=== PATIENT | female | born 1940 | race Caucasian/White ===

== ENCOUNTER 2023-03-05 10:03 | Observation (INO) | payer MEDICARE, OTHER, SELFPAY ==
[2023-03-05] VITALS (7 sets, daily range): BP systolic 121–178; BP diastolic 61–85; PULSE 65–93; RESP 14–19; TEMP 36–36.7; O2SAT 95–99; BMI 23.7; BMI 22.9
--- NOTE | ~2023-03-05 | XR_ITS ---
EXAMINATION: XR CHEST CLINICAL INFORMATION: Syncope. COMPARISON: None available. TECHNIQUE: AP view of the chest was obtained. FINDINGS: Normal heart size. Mild platelike opacities in the left lower lobe. No pleural effusion or pneumothorax. No acute osseous findings. No displaced osseous fractures. XR/XR chest 1V IMPRESSION: Mild platelike opacities in the left lower lobe are in favor to be related with subsegmental atelectasis, less likely aspiration or developing infiltrates.
--- NOTE | ~2023-03-05 | CT_ITS ---
EXAMINATION: CT HEAD WITHOUT CONTRAST CLINICAL INFORMATION: Syncope. COMPARISON: None. TECHNIQUE: Contiguous axial imaging was performed from the skull base to vertex without intravenous administration of contrast. This CT examination was performed using dose optimization techniques as appropriate, variously including the following: *Automated exposure control *Adjustment of mA and/or kV according to patient size (this includes techniques or standardized protocols for targeted exams where dose is matched to indication/reason for exam; i.e. extremities or head) *Use of iterative reconstruction technique DLP: 61 mGy-cm. FINDINGS: There is no intracranial hemorrhage, large infarction, or mass lesion. There is no extra-axial collection. The ventricles are normal in size and configuration without evidence of hydrocephalus. 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 There is mild degree of brain parenchymal volume loss. The visualized paranasal sinuses and mastoid air cells are clear. CT/CT head/brain wo IV con IMPRESSION: No acute intracranial abnormality.
--- NOTE | 2023-03-05 10:21 | ECG_ITS ---
Test Reason : SYNCOPE Blood Pressure : / mmHG Vent. Rate : 073 BPM Atrial Rate : 073 BPM P-R Int : 154 ms QRS Dur : 080 ms QT Int : 416 ms P-R-T Axes : 072 065 063 degrees QTc Int : 458 ms Normal sinus rhythm Normal ECG No previous ECGs available Referred By: Generic ED Physician Electronically Signed By:JANET ANTHONY
[2023-03-05 10:51] LABS: MANUAL DIFF FLAG NO
[2023-03-05 10:54] LABS: Basophils Absolute Auto 0.1 X10*3/uL (0.0-0.2); Eosinophils Absolute Auto 0.1 X10*3/uL (0.0-0.4); Hematocrit 40.8 % (37.0-47.0); Hemoglobin 13.5 g/dl (12.0-16.0); Imm Gran Abs Auto 0.03 X10*3/uL (0.00-0.03); Imm Gran Pct Auto 0.3 % (0.0-0.4); Lymphocytes Absolute Auto 1.7 X10*3/uL (1.2-4.9); Lymphocytes Percent Auto 16.2 % (20-40); Mean Corpuscular HGB Conc 33.1 g/dl (31.0-35.0); Mean Corpuscular Hemoglobin 31.7 pg (27.0-33.0); Mean Corpuscular Volume 95.8 fL (80.0-98.0); Mean Platelet Volume 8.6 fL (9.4-12.3); Monocytes Absolute Auto 0.9 X10*3/uL (0.1-1.2); Neutrophils Absolute Auto 7.4 x10*3/uL (2.0-8.3); Neutrophils Percent Auto 72.5 % (45-73); Platelet Count 398 X10*3/uL (160-400); Red Blood Count 4.26 X10*6/uL (4.20-5.50); Red Cell Distribution Width 12.4 % (11.0-16.0); White Blood Count 10.2 X10*3/uL (4.8-10.8)
--- NOTE | 2023-03-05 11:09 | ED.SYNCOPE ---
HPI - Syncope General Chief Complaint: Syncope Stated Complaint: SYNCOPE,LOWERED TO FLOOR Time Seen by Provider: 03/05/23 10:58 Source: patient and EMS Mode of arrival: EMS Limitations: no limitations History of Present Illness HPI narrative: 82-year-old female brought in by ambulance for evaluation of syncopal episode, patient had an exercise class this morning, patient suddenly collapsed and passed out for few seconds, patient do not recall any events during passing out, no headache, no CP, no SOB in patient is back to her normal baseline. Has been eating and drinking normally with no nausea, vomiting, or diarrhea. Related Data Allergies Allergy/AdvReac Type Severity Reaction Status Date / Time No Known Allergies Allergy Verified 03/05/23 11:07 Review of Systems Review of Systems: All other systems are reviewed and are negative Constitutional: Reports as per HPI and Reports no additional constitutional complaints Eyes: Reports as per HPI and Reports no additional eye complaints Reports system reviewed and no additional complaints, except as documented Cardiovascular: Reports as per HPI and Reports no additional cardiovascular complaints Respiratory: Reports as per HPI and Reports no additional respiratory complaints Gastrointestinal: Reports as per HPI and Reports no additional gastrointestinal complaints Genitourinary: Reports no additional female genitourinary complaints Musculoskeletal: Reports no additional musculoskeletal complaints Skin/Breast: Reports system reviewed and no additional complaints, except as docu Psychiatric: Reports no additional psychiatric complaints Endocrine: Reports no additional endocrine complaints Hematologic/Lymphatic: Reports no additional hematologic/lymphatic complaints Allergic/Immunologic: Reports no additional allergic/immunologic complaints Reports system reviewed and no additional complaints, except as documented and Reports Abnormal speech present FOR[facility]LY [facility], [facility] Social History Social History Advance Directives: No Advance Directives Information Provided: Yes Physical Exam Vital Signs: Vital Signs: Last Vital Signs Temp 98.0 F 03/05/23 10:26 Pulse 75 03/05/23 11:16 Resp 19 03/05/23 10:26 BP 137/78 03/05/23 11:16 Pulse Ox 98 03/05/23 10:26 O2 Del Method Room Air 03/05/23 10:26 BMI result Body Mass Index 23.7 Vital signs have been reviewed and appear to be correct. Blood pressure elevated. Heart rate normal. Respiratory rate normal. Temperature normal. Oxygen saturation normal. Appearance: Alert. Oriented X3. No acute distress. Head: Normal external exam. Normocephalic. Atraumatic. No Zendejas signs noted. No raccoon eyes noted Eyes: PERRLA. EOMI. Conjunctiva and sclera normal. Eyelids normal. ENT: TM's Normal. Pharynx normal. Uvula midline. Moist mucous membranes. No trismus noted. No drooling noted. No muffled voice noted. Neck: Normal inspection. Neck supple. FROM. No adenopathy. Thyroid Normal. No meningeal signs. No neck mass noted. CVS: Normal heart rate and rhythm. Heart sound normal. No murmurs noted. Pulses normal throughout. Respiratory: No respiratory distress. Painless inspiration. Breath sounds normal. No wheezes/rales/rhonchi noted. Chest nontender. No accessory muscle usage noted or decreased air movement noted. Abdomen: Soft and nontender. Bowel sounds normal in all 4 quadrants. No distention noted. No organomegaly noted. No visible injury noted. Back: No CVA tenderness. Full range of motion noted. Skin: Skin warm and dry. Normal skin color. Normal skin turgor. No rashes/lesions/lacerations noted. Extremities: No lower extremity edema. Extremities exhibit normal range of motion. Extremities nontender. Neuro: Oriented X 3. Cranial nerve exam: II-XII are grossly intact No motor deficit. No sensory deficit. Reflexes normal. Course Course Course Narrative: 82-year-old female presented after having a syncopal episode, unremarkable cardiac workup. UTI with no sepsis start the patient on oral cefuroxime. Medical Decision Making Differential Diagnosis Differential Diagnoses: The differential diagnosis associated with the presentation includes ( Vasovagal syncope, cardiac syncopal episode, ACS, severe anemia, electrolyte abnormality, UTI.) Admission/Observation Consideration of admission/observation: Escalation of care including admission/observation considered Consult Healthcare Provider Management of the patient was discussed with: Hospitalist ( Dr. Khan) Lab Data MDM Lab Attestation statement: I reviewed the patient's lab results. 03/05/23 10:45 03/05/23 11:09 Labs: Lab Results 03/05/23 03/05/23 03/05/23 Range/Units 10:45 11:09 11:12 WBC 10.2 (4.8-10.8) X10*3/uL RBC 4.26 (4.20-5.50) X10*6/uL Hgb 13.5 (12.0-16.0) g/dl Hct 40.8 (37.0-47.0) % MCV 95.8 (80.0-98.0) fL MCH 31.7 (27.0-33.0) pg MCHC 33.1 (31.0-35.0) g/dl RDW 12.4 (11.0-16.0) % Plt Count 398 (160-400) X10*3/uL MPV 8.6 L (9.4-12.3) fL Immature Gran % (Auto) 0.3 (0.0-0.4) % Neut % (Auto) 72.5 (45-73) % Lymph % (Auto) 16.2 L (20-40) % [place] % (Auto) 9.0 (2-11) % Eos % (Auto) 1.0 (0-4) % Baso % (Auto) 1.0 (0-2) % Lymph # (Auto) 1.7 (1.2-4.9) X10*3/uL [place] # (Auto) 0.9 (0.1-1.2) X10*3/uL Eos # (Auto) 0.1 (0.0-0.4) X10*3/uL Baso # (Auto) 0.1 (0.0-0.2) X10*3/uL Abs Immat Gran (auto) 0.03 (0.00-0.03) X10*3/uL Absolute Neuts (auto) 7.4 (2.0-8.3) x10*3/uL Absolute Nucleated RBC 0.000 (0.0-0.012) X10*3/uL Nucleated RBC % (auto) 0.0 (0.0-0.2) /100WBC Sodium 133 L (135-145) mmol/L Potassium 4.4 (3.3-5.1) mmol/L Chloride 99 (96-108) mmol/L Carbon Dioxide 25 (22-29) mmol/L Anion Gap 13 (12-20) BUN 11 (9-16) mg/dL Creatinine 0.83 (0.5-1.4) mg/dL Estim Creat Clear Calc 43.5 Estimated GFR > 60 POC Glucose 122 H (60-115) mg/dL Random Glucose 114 (60-115) mg/dL Calcium 9.8 (8.4-10.2) mg/dL Total Bilirubin 0.6 (0.0-1.0) mg/dL AST 22 (5-31) U/L ALT 16 (0-31) U/L Alkaline Phosphatase 64 (39-117) U/L Troponin I High Sens < 2.7 (<3.5-17.0) ng/L Total Protein 7.6 (6.5-8.0) g/dL Albumin 3.9 (3.5-5.0) g/dL Urine Color Urine Appearance Urine pH (5.0-9.0) Ur Specific [place] (1.005-1.025) Urine Protein (Neg-Trace) mg/dL Urine Glucose (UA) (Negative) mg/dL Urine Ketones (Negative) mg/dL Urine Blood (Negative) Urine Nitrite (Negative) Ur Leukocyte Esterase (Negative) Urine RBC (0-2) /HPF Urine WBC (0-5) /HPF Ur Squamous Epith Cells (0-2) /HPF Urine Bacteria (None Seen) Hyaline Casts (0-2) /LPF Influenza Type A (PCR) NEGATIVE (Negative) Influenza Type B (PCR) NEGATIVE (Negative) RSV RNA Qual (PCR) NEGATIVE (Negative) SARS-CoV-2 RNA (RT-PCR) NEGATIVE (Negative) 03/05/23 Range/Units 11:52 WBC (4.8-10.8) X10*3/uL RBC (4.20-5.50) X10*6/uL Hgb (12.0-16.0) g/dl Hct (37.0-47.0) % MCV (80.0-98.0) fL MCH (27.0-33.0) pg MCHC (31.0-35.0) g/dl RDW (11.0-16.0) % Plt Count (160-400) X10*3/uL MPV (9.4-12.3) fL Immature Gran % (Auto) (0.0-0.4) % Neut % (Auto) (45-73) % Lymph % (Auto) (20-40) % [place]od % (Auto) (2-11) % Eos % (Auto) (0-4) % Baso % (Auto) (0-2) % Lymph # (Auto) (1.2-4.9) X10*3/uL [place]cleod # (Auto) (0.1-1.2) X10*3/uL Eos # (Auto) (0.0-0.4) X10*3/uL Baso # (Auto) (0.0-0.2) X10*3/uL Abs Immat Gran (auto) (0.00-0.03) X10*3/uL Absolute Neuts (auto) (2.0-8.3) x10*3/uL Absolute Nucleated RBC (0.0-0.012) X10*3/uL Nucleated RBC % (auto) (0.0-0.2) /100WBC Sodium (135-145) mmol/L Potassium (3.3-5.1) mmol/L Chloride (96-108) mmol/L Carbon Dioxide (22-29) mmol/L Anion Gap (12-20) BUN (9-16) mg/dL Creatinine (0.5-1.4) mg/dL Estim Creat Clear Calc Estimated GFR POC Glucose (60-115) mg/dL Random Glucose (60-115) mg/dL Calcium (8.4-10.2) mg/dL Total Bilirubin (0.0-1.0) mg/dL AST (5-31) U/L ALT (0-31) U/L Alkaline Phosphatase (39-117) U/L Troponin I High Sens (<3.5-17.0) ng/L Total Protein (6.5-8.0) g/dL Albumin (3.5-5.0) g/dL Urine Color Yellow Urine Appearance Clear Urine pH 6.5 (5.0-9.0) Ur Specific [place] 1.020 (1.005-1.025) Urine Protein Trace (Neg-Trace) mg/dL Urine Glucose (UA) Negative (Negative) mg/dL Urine Ketones Trace (Negative) mg/dL Urine Blood Negative (Negative) Urine Nitrite Negative (Negative) Ur Leukocyte Esterase Moderate (2+) H (Negative) Urine RBC 3-5 H (0-2) /HPF Urine WBC 21-50 H (0-5) /HPF Ur Squamous Epith Cells 6-10 (0-2) /HPF Urine Bacteria 1+ (None Seen) Hyaline Casts 6-10 (0-2) /LPF Influenza Type A (PCR) (Negative) Influenza Type B (PCR) (Negative) RSV RNA Qual (PCR) (Negative) SARS-CoV-2 RNA (RT-PCR) (Negative) Independent Interpretation I performed an independent interpretation of an: EKG ( Normal sinus rhythm at 73 beats per minutes, normal axis deviation, normal intervals, no ST-T changes.), Plain X-Ray ( chest:Mild platelike opacities in the left lower lobe are in favor to be related with subsegmental atelectasis, less likely aspiration or developing infiltrates. ) and CT Scan ( Head: No acute intra cranial pathology.) Radiology Impression Discussion of test interpretation with radiology: I have reviewed the radiologist's reading. Discharge Plan Discharge Clinical Impression: Syncope and collapse, Acute UTI Patient Disposition: Admitted As Inpatient
[2023-03-05 11:21] LABS: Glucose, Whole Blood 122 mg/dL (60-115)
[2023-03-05 11:23] LABS: Troponin-I High Sensitivity < 2.7 ng/L (<3.5-17.0)
[2023-03-05 11:34] LABS: Alanine Aminotransferase 16 U/L (0-31); Albumin Level 3.9 g/dL (3.5-5.0); Alkaline Phosphatase 64 U/L (39-117); Anion Gap 13 (12-20); Aspartate Amino Transferase 22 U/L (5-31); Bilirubin Total 0.6 mg/dL (0.0-1.0); Blood Urea Nitrogen 11 mg/dL (9-16); Calcium 9.8 mg/dL (8.4-10.2); Carbon Dioxide 25 mmol/L (22-29); Chloride 99 mmol/L (96-108); Creatinine Clr Calc Pharmacy 43.5; Estimated Glomerular Filt Rate > 60; Glucose Random 114 mg/dL (60-115); Potassium 4.4 mmol/L (3.3-5.1); Sodium 133 mmol/L (135-145); Total Protein 7.6 g/dL (6.5-8.0)
[2023-03-05 11:35] LABS: Influenza A PCR NEGATIVE (Negative); Influenza B PCR NEGATIVE (Negative); Resp Syncy Virus RNA Qual PCR NEGATIVE (Negative); SARS COV2 PCR INHOUSE NEGATIVE (Negative)
[2023-03-05 12:05] LABS: Appearance Urine Clear; Color Urine Yellow; Glucose Urine UA Negative (Negative); Leukocyte Esterase Urine Moderate (2+) (Negative); Nitrite Urine Negative (Negative); PH 6.5 (5.0-9.0); UMIC TRIGGER UACC YES; Urine Blood Negative (Negative); Urine Ketones Trace mg/dL (Negative); Urine Protein Trace mg/dL (Neg-Trace)
[2023-03-05 12:16] LABS: Bacteria Urine 1+ (None Seen); UACC Culture Trigger YES; WBC Urine 21-50 /HPF (0-5)
--- NOTE | 2023-03-05 13:28 | PHA.MEDREC ---
Pharmacy Consult ? Medication Reconciliation Pharmacy has completed the medication reconciliation. Patient reported that she takes no prescription medications. Reports she takes a tablets for runny nose but unsure which and tylenol every once in a while. Shital Roland, PharmD
--- NOTE | 2023-03-05 13:35 | P.HPHOSP_ITS ---
History of Present Illness Date of Service: 03/05/23 Attending physician on admission: Arik Thorne Chief Complaint: syncope 82-year-old female without any significant medical history who resides at [facility] presents to the ED earlier today for evaluation of a syncopal episode. She was participating in cardio exercise which she does on a daily basis when she had a syncopal episode. She denies any prodrome leading up to the event including blurred vision, tunnel vision, lightheadedness, palpitations, shortness of breath, or chest pain. She was able to lower herself to the floor but then lost consciousness for about 1 minute per bystanders. On arrival, vital stable. Orthostatic vital signs negative. Hematology studies unremarkable. Renal function normal, electrolytes normal except for a mild hyponatremia of 133. Troponin below detectable limits. Urinalysis with 2+ leukocytes, negative nitrites, negative blood, positive urinary sediment, 1+ bacteria. Denies any fevers, chills, upper respiratory symptoms, abdominal pain, nausea, vomiting, urinary symptoms, diarrhea. Negative for influenza, RSV, COVID-19. Head CT negative for any acute intracranial abnormality. Chest x-ray without any cardiopulmonary abnormality. EKG shows normal sinus rhythm, rate 73, no ST/T-wave abnormality. She drinks 2-3 beers nightly and denies any history of withdrawal or withdrawal seizure. She does smoke about 3 cigarettes weekly and denies any illicit drug use Review of Systems 2 Review of Systems: General: No fevers, malaise, unintentional weight loss HEENT: No blurred vision, diplopia. No sore throat, nasal congestion, rhinorrhea, sinus pain, ear pain Cardiovascular: No chest pain, palpitations, or leg edema Respiratory: No shortness of breath, wheezing, cough GI: No abdominal pain, nausea, vomiting, diarrhea, constipation, melena, hematochezia : No dysuria, hematuria, increased urinary frequency, decreased urinary output MSK: No myalgia, back pain Neuro: No headaches, weakness, paresthesias. +syncope Skin: No rashes or lesions PMFSH Medical History Alcohol abuse Social History Household Members: Other Household Members Other:: assisted living. Housing: Assisted Living Facility Do you presently have visiting nurse or other home services: No Patient Tobacco Use Status: Current someday Tobacco user Tobacco use type: Cigarette Cigarettes Per Day: 1 Use of substances other than those prescribed or required for medical reasons: No Currently Displaying Signs/Symptoms of Drug Intoxication Withdrawal: No Have you been hit, kicked, punched, or otherwise hurt by someone within the past year? If so, by whom?: No Do you feel safe in your current relationship?: No Current Relationship Advance Directives: No Advance Directives Information Provided: Yes Do you have thoughts of harming others: None Do you have a plan to hurt others: No Plan Recently lost weight without trying: No Patient : No : No Poor oral hygiene: No service: No Meds Allergies Allergy/AdvReac Type Severity Reaction Status Date / Time Influenza Virus Vaccines Allergy Unknown Verified 03/05/23 16:38 Active Medications: Current Medications Acetaminophen (Acetaminophen 325 Mg Tablet) 650 mg PO Q6H PRN PRN Reason: Pain, Mild (Pain Scale 1-3) Docusate Sodium (Docusate Sodium 100 Mg Capsule) 100 mg PO DAILY PRN PRN Reason: Constipation Ondansetron HCl (Ondansetron Hcl 4 Mg/2 Ml Vial) 4 mg IVPUSH Q8H PRN PRN Reason: Nausea and Vomiting Sodium Chloride (0.9 % Sodium Chloride Flush 3 Ml Syringe) 3 ml IVFLUSH [facility] Home Medications Medication Instructions Recorded Confirmed Last Taken Type acetaminophen 500 mg tablet 500 mg PO Q6H PRN Pain 03/05/23 03/05/23 Unknown History Physical Exam 2 Vital Signs and Narrative: Vital Signs: Last Vital Signs Temp 98.0 F 03/05/23 10:26 Pulse 75 03/05/23 11:16 Resp 19 03/05/23 10:26 BP 137/78 03/05/23 11:16 Pulse Ox 98 03/05/23 10:26 O2 Del Method Room Air 03/05/23 10:26 BMI result Body Mass Index 23.7 Results Labs 03/06/23 05:37 03/06/23 05:37 Labs: Laboratory Results - last 24 hr 03/05/23 03/05/23 03/05/23 10:45 11:09 11:12 MCV 95.8 MCH 31.7 MCHC 33.1 RDW 12.4 Plt Count 398 MPV 8.6 L Immature Gran % (Auto) 0.3 Neut % (Auto) 72.5 Lymph % (Auto) 16.2 L [place] % (Auto) 9.0 Eos % (Auto) 1.0 Baso % (Auto) 1.0 Lymph # (Auto) 1.7 [place] # (Auto) 0.9 Eos # (Auto) 0.1 Baso # (Auto) 0.1 Abs Immat Gran (auto) 0.03 Absolute Neuts (auto) 7.4 Absolute Nucleated RBC 0.000 Nucleated RBC % (auto) 0.0 Anion Gap 13 Estim Creat Clear Calc 43.5 Estimated GFR > 60 POC Glucose 122 H Random Glucose 114 Calcium 9.8 Total Bilirubin 0.6 AST 22 ALT 16 Alkaline Phosphatase 64 Total Protein 7.6 Albumin 3.9 Urine Color Urine Appearance Urine pH Ur Specific [place] Urine Protein Urine Glucose (UA) Urine Ketones Urine Blood Urine Nitrite Ur Leukocyte Esterase Urine RBC Urine WBC Ur Squamous Epith Cells Urine Bacteria Hyaline Casts Influenza Type A (PCR) NEGATIVE Influenza Type B (PCR) NEGATIVE RSV RNA Qual (PCR) NEGATIVE SARS-CoV-2 RNA (RT-PCR) NEGATIVE 03/05/23 11:52 MCV MCH MCHC RDW Plt Count MPV Immature Gran % (Auto) Neut % (Auto) Lymph % (Auto) [place] % (Auto) Eos % (Auto) Baso % (Auto) Lymph # (Auto) [place] # (Auto) Eos # (Auto) Baso # (Auto) Abs Immat Gran (auto) Absolute Neuts (auto) Absolute Nucleated RBC Nucleated RBC % (auto) Anion Gap Estim Creat Clear Calc Estimated GFR POC Glucose Random Glucose Calcium Total Bilirubin AST ALT Alkaline Phosphatase Total Protein Albumin Urine Color Yellow Urine Appearance Clear Urine pH 6.5 Ur Specific [place] 1.020 Urine Protein Trace Urine Glucose (UA) Negative Urine Ketones Trace Urine Blood Negative Urine Nitrite Negative Ur Leukocyte Esterase Moderate (2+) H Urine RBC 3-5 H Urine WBC 21-50 H Ur Squamous Epith Cells 6-10 Urine Bacteria 1+ Hyaline Casts 6-10 Influenza Type A (PCR) Influenza Type B (PCR) RSV RNA Qual (PCR) SARS-CoV-2 RNA (RT-PCR) Imaging Radiologist's Impressions: Impressions Chest X-Ray 03/05/23 11:28 IMPRESSION: Mild platelike opacities in the left lower lobe are in favor to be related with subsegmental atelectasis, less likely aspiration or developing infiltrates. Head CT 03/05/23 12:10 IMPRESSION: No acute intracranial abnormality. Assessment and Plan (1) Acute UTI: Status: Acute (2) Syncope and collapse: Status: Acute Plan 82-year-old female without any significant medical history who resides at [facility] to be observed for syncopal episode. # syncopal episode -likely vasovagal in the setting of cardiovascular exercise -orthostatics negative -head CT without any acute intracranial abnormality -less likely related to infection. UA possibly with UTI the patient asymptomatic. Will treat as below -low suspicion for seizure activity, no tongue bite or postictal state -continue telemetry # acute UTI -UA with 2+ leukocytes, negative nitrites, negative blood, positive urinary sediment, 1+ bacteria -IV ceftriaxone x5 days (initiated 03/05) -follow cultures -no leukocytosis or SIRS criteria. Sepsis # alcohol abuse -drinks 2-3 beers on a nightly basis -unlikely to be contributory to above -will monitor on CIWA for now DVT prophylaxis-Lovenox Full code Time Spent With Patient Time: Total time managing care of this patient today ____ minutes. Quality Stroke Does the patient have a stroke diagnosis?: No VTE Prior VTE?: No VTE Risk Level:: Medical - moderate - high VTE Device Contraindication: Treatment Not Indicated VTE Drug Contraindication: N/A - Med Ordered
[2023-03-05] MEDS: cefTRIAXone sodium 1 GM in 0.9 % Sodium Chloride 50 ML IV (14:19)
[2023-03-05] MEDS: 0.9 % Sodium Chloride Flush 3 ML SYRINGE IVFLUSH ×2 (17:38→23:53)
[2023-03-05] MEDS: Acetaminophen 325 MG TABLET 650 MG PO (20:39)
[2023-03-06 04:00] VITALS: BP 165/76; PULSE 63; RESP 18; O2SAT 97
[2023-03-06 07:01] LABS: MANUAL DIFF FLAG NO
[2023-03-06 07:10] LABS: Basophils Absolute Auto 0.1 X10*3/uL (0.0-0.2); Basophils Percent Auto 0.9 % (0-2); Eosinophils Absolute Auto 0.2 X10*3/uL (0.0-0.4); Eosinophils Percent Auto 1.9 % (0-4); Hematocrit 38.9 % (37.0-47.0); Hemoglobin 13.5 g/dl (12.0-16.0); Imm Gran Abs Auto 0.03 X10*3/uL (0.00-0.03); Imm Gran Pct Auto 0.3 % (0.0-0.4); Lymphocytes Absolute Auto 2.4 X10*3/uL (1.2-4.9); Lymphocytes Percent Auto 28.3 % (20-40); Mean Corpuscular HGB Conc 34.7 g/dl (31.0-35.0); Mean Corpuscular Volume 95.1 fL (80.0-98.0); Mean Platelet Volume 8.9 fL (9.4-12.3); Monocytes Percent Auto 11.9 % (2-11); Neutrophils Absolute Auto 4.9 x10*3/uL (2.0-8.3); Neutrophils Percent Auto 56.7 % (45-73); Platelet Count 384 X10*3/uL (160-400); Red Blood Count 4.09 X10*6/uL (4.20-5.50); Red Cell Distribution Width 12.1 % (11.0-16.0); White Blood Count 8.6 X10*3/uL (4.8-10.8)
[2023-03-06 07:30] VITALS: BP 177/87; PULSE 77; RESP 18; TEMP 36.9; O2SAT 97
[2023-03-06 07:42] LABS: Anion Gap 14 (12-20); Blood Urea Nitrogen 10 mg/dL (9-16); Calcium 9.4 mg/dL (8.4-10.2); Carbon Dioxide 22 mmol/L (22-29); Chloride 100 mmol/L (96-108); Creatinine Clr Calc Pharmacy 50.2; Estimated Glomerular Filt Rate > 60; Glucose Random 85 mg/dL (60-115); Potassium 4.1 mmol/L (3.3-5.1); Sodium 132 mmol/L (135-145)
--- NOTE | 2023-03-06 10:46 | MHC.CM.PN ---
ASHLEY DELIVERED. PT FROM [facility]DEP[facility]IV[facility] AT [facility]. NO SERVICES. + COVID VAX. NO HCP, TO BE ESTABLISHED WITH NEW PCP AT UPCOMING VISIT THIS SUNDAY (Gary COE AT [facility] DP: PER MD ROUNDS MEDICALLY CLEARED FOR DC. PLAN TO RETURN TO [facility], SON AT BEDSIDE AND WILL TRANSPORT.
--- NOTE | 2023-03-06 10:49 | P.DS_ITS ---
DS: Providers Provider Date of Service: 03/06/23 Date of admission: 03/05/23 13:32 Primary care physician: Unknown Physician DS: Diagnosis Discharge Diagnosis (1) Acute UTI: Status: Acute (2) Syncope and collapse: Status: Acute DS: Summary Hospital Course Hospital Course: Admission note HPI 82-year-old female without any significant medical history who resides at [facility] presents to the ED earlier today for evaluation of a syncopal episode. She was participating in cardio exercise which she does on a daily basis when she had a syncopal episode. She denies any prodrome leading up to the event including blurred vision, tunnel vision, lightheadedness, palpitations, shortness of breath, or chest pain. She was able to lower herself to the floor but then lost consciousness for about 1 minute per bystanders. On arrival, vital stable. Orthostatic vital signs negative. Hematology studies unremarkable. Renal function normal, electrolytes normal except for a mild hyponatremia of 133. Troponin below detectable limits. Urinalysis with 2+ leukocytes, negative nitrites, negative blood, positive urinary sediment, 1+ bacteria. Denies any fevers, chills, upper respiratory symptoms, abdominal pain, nausea, vomiting, urinary symptoms, diarrhea. Negative for influenza, RSV, COVID-19. Head CT negative for any acute intracranial abnormality. Chest x-ray without any cardiopulmonary abnormality. EKG shows normal sinus rhythm, rate 73, no ST/T-wave abnormality. She drinks 2-3 beers nightly and denies any history of withdrawal or withdrawal seizure. She does smoke about 3 cigarettes weekly and denies any illicit drug use. Hospital course # syncopal episode The episode sounds likely vasovagal with orthostatics negative, head CT without any acute intracranial abnormality, normal EKG and Trop, normal Telemetry with no abnormal rhythm. to treat infection. # Hypertension Starting low dose amlodipine. to be follow as outpatient with PCP. # acute UTI Urine showing infection in urine. Treated with IV Ceftriaxone. To be discharged on Ceftin. 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 advised to cut down drinking and consider complete abstinence. Continue Ceftin for treatment of urine infection Start Amlodipine and monitor blood pressure readings for 1 more week Follow with PCP for further adjustments of blood pressure pills Time Spent with Patient Time attestation: Total time managing care of this patient today ____ minutes. Discharge coordination time: Less than 30 minutes Quality: Safe Use of Opioids Does Pt have an Active Cancer Diagnosis on the Problem List?: No Quality: Stroke Does the patient have a stroke diagnosis?: No Physical Exam Vital Signs: Vital Signs: Last Vital Signs Temp 98.4 F 03/06/23 07:30 Pulse 77 03/06/23 07:30 Resp 18 03/06/23 07:30 BP 177/87 H 03/06/23 07:30 Pulse Ox 97 03/06/23 07:30 O2 Del Method Room Air 03/06/23 07:30 BMI result Body Mass Index 22.9 Const: Other: Constitutional : Awake, interactive, not in distress Neck : Normal inspection, Supple Cardiovascular : RRR, no JVP, no lower extremity edema Respiratory : good bilateral air entry, no crackles, wheezes or rhonchi Gastrointestinal: soft, lax, Normal bowel sounds, Non tender Skin : Warm, Dry Neurological : Alert & oriented x3, No focal deficit , CN 2-12 within normal DS: Data Data Completed and Pending Labs on day of discharge: Laboratory Results - last 24 hr 03/05/23 03/05/23 03/05/23 10:45 11:09 11:12 WBC 10.2 RBC 4.26 Hgb 13.5 Hct 40.8 MCV 95.8 MCH 31.7 MCHC 33.1 RDW 12.4 Plt Count 398 MPV 8.6 L Immature Gran % (Auto) 0.3 Neut % (Auto) 72.5 Lymph % (Auto) 16.2 L [place] % (Auto) 9.0 Eos % (Auto) 1.0 Baso % (Auto) 1.0 Lymph # (Auto) 1.7 [place] # (Auto) 0.9 Eos # (Auto) 0.1 Baso # (Auto) 0.1 Abs Immat Gran (auto) 0.03 Absolute Neuts (auto) 7.4 Absolute Nucleated RBC 0.000 Nucleated RBC % (auto) 0.0 Sodium 133 L Potassium 4.4 Chloride 99 Carbon Dioxide 25 Anion Gap 13 BUN 11 Creatinine 0.83 Estim Creat Clear Calc 43.5 Estimated GFR > 60 POC Glucose 122 H Random Glucose 114 Calcium 9.8 Total Bilirubin 0.6 AST 22 ALT 16 Alkaline Phosphatase 64 Troponin I High Sens < 2.7 Total Protein 7.6 Albumin 3.9 Urine Color Urine Appearance Urine pH Ur Specific [place] Urine Protein Urine Glucose (UA) Urine Ketones Urine Blood Urine Nitrite Ur Leukocyte Esterase Urine RBC Urine WBC Ur Squamous Epith Cells Urine Bacteria Hyaline Casts Influenza Type A (PCR) NEGATIVE Influenza Type B (PCR) NEGATIVE RSV RNA Qual (PCR) NEGATIVE SARS-CoV-2 RNA (RT-PCR) NEGATIVE 03/05/23 03/06/23 11:52 05:37 WBC 8.6 RBC 4.09 L Hgb 13.5 Hct 38.9 MCV 95.1 MCH 33.0 MCHC 34.7 RDW 12.1 Plt Count 384 MPV 8.9 L Immature Gran % (Auto) 0.3 Neut % (Auto) 56.7 Lymph % (Auto) 28.3 [place] % (Auto) 11.9 H Eos % (Auto) 1.9 Baso % (Auto) 0.9 Lymph # (Auto) 2.4 [place] # (Auto) 1.0 Eos # (Auto) 0.2 Baso # (Auto) 0.1 Abs Immat Gran (auto) 0.03 Absolute Neuts (auto) 4.9 Absolute Nucleated RBC 0.000 Nucleated RBC % (auto) 0.0 Sodium 132 L Potassium 4.1 Chloride 100 Carbon Dioxide 22 Anion Gap 14 BUN 10 Creatinine 0.72 Estim Creat Clear Calc 50.2 Estimated GFR > 60 POC Glucose Random Glucose 85 Calcium 9.4 Total Bilirubin AST ALT Alkaline Phosphatase Troponin I High Sens Total Protein Albumin Urine Color Yellow Urine Appearance Clear Urine pH 6.5 Ur Specific [place] 1.020 Urine Protein Trace Urine Glucose (UA) Negative Urine Ketones Trace Urine Blood Negative Urine Nitrite Negative Ur Leukocyte Esterase Moderate (2+) H Urine RBC 3-5 H Urine WBC 21-50 H Ur Squamous Epith Cells 6-10 Urine Bacteria 1+ Hyaline Casts 6-10 Influenza Type A (PCR) Influenza Type B (PCR) RSV RNA Qual (PCR) SARS-CoV-2 RNA (RT-PCR) Imaging CT scan - head: Radiologist's impression: ITS Impressions Chest X-Ray 03/05/23 11:28 IMPRESSION: Mild platelike opacities in the left lower lobe are in favor to be related with subsegmental atelectasis, less likely aspiration or developing infiltrates. Head CT 03/05/23 12:10 IMPRESSION: No acute intracranial abnormality. Discharge Plan Discharge Anticipated Discharge Date/Time: 03/06/23 10:46 Patient Disposition: Home, Self-Care Discharge Diagnosis: UTI Syncope Referrals: Physician,Unknown J [Primary Care Provider] - 1 Week Discharge Medications: New amlodipine 2.5 mg tablet 2.5 mg PO DAILY Qty: 30 0RF cefuroxime axetil 500 mg tablet 500 mg PO BID Qty: 8 0RF Continued acetaminophen 500 mg Tablet 500 mg PO Q6H PRN (Reason: Pain) Discharge Orders: Discharge Order (Routine); Ordered 03/06/23 Ordered By: Arik Thorne Diet: Advance to usual diet Activity on Discharge: As tolerated Stand Alone Forms: Patient Portal Discharge page Care Plan Goals: Read below Health Concerns: Read below Plan of Treatment: Read below Assessment: Continue Ceftin for treatment of urine infection Start Amlodipine and monitor blood pressure readings for 1 more week Follow with PCP for further adjustments of blood pressure pills
[2023-03-06] MEDS: amLODIPine Besylate 2.5 MG TABLET PO (12:17)
== END 2023-03-06 12:44 | disposition home or self-care (01) ==
LOC: HO.ED 12:56 → HO.EDOVER 13:46 → HO.S3 14:35
PROVIDERS: Admitting Provider Physician Assistant; Emergency Provider Emergency Medicine; Visit Provider Student in an Organized Health Care Education/Training Program
DX: R55 Syncope and collapse (principal); N39.0 Urinary tract infection, site not specified; F10.10 Alcohol abuse, uncomplicated; E87.1 Hypo-osmolality and hyponatremia; I10 Essential (primary) hypertension; Z20.822 Contact with and (suspected) exposure to COVID-19
CPT/HCPCS: 0241U; 36415; 70450; 71045; 80048; 80053; 81001; 81003; 82947; 84484; 85025; 87086; 93005; 96365; 96366; 99221; 99285; J0696

== ENCOUNTER → 2023-03-05 13:32 | Outpatient (BNV) | payer MEDICARE, OTHER, SELFPAY | PROVIDERS: Admitting Provider Physician Assistant; Emergency Provider Emergency Medicine; Visit Provider Student in an Organized Health Care Education/Training Program | DX: N39.0 Urinary tract infection, site not specified (principal); R55 Syncope and collapse | CPT/HCPCS: 99223; 99238 ==

== ENCOUNTER 2023-05-15 07:41 | Emergency (ER) | payer MEDICARE, OTHER, SELFPAY ==
--- NOTE | ~2023-05-15 | XR_ITS ---
EXAMINATION: XR CHEST CLINICAL INFORMATION: Feeling unwell COMPARISON: 03/05/2023 TECHNIQUE: Frontal view of the chest was obtained. FINDINGS: No significant abnormality is noted involving the heart, lungs, mediastinum, bony thorax or soft tissues. XR/XR chest 1V IMPRESSION: No acute cardiopulmonary disease.
[2023-05-15 07:45] VITALS: BP 162/83; PULSE 75; O2SAT 97
[2023-05-15 07:48] VITALS: BP 176/87; PULSE 65; RESP 18; TEMP 36.8; O2SAT 98; BMI 23.3
--- NOTE | 2023-05-15 07:54 | ECG_ITS ---
Test Reason : fatigue Blood Pressure : / mmHG Vent. Rate : 065 BPM Atrial Rate : 065 BPM P-R Int : 164 ms QRS Dur : 080 ms QT Int : 430 ms P-R-T Axes : 072 047 031 degrees QTc Int : 447 ms Normal sinus rhythm Normal ECG When compared with ECG of 05-MAR-2023 10:29, No significant change was found Referred By: Generic ED Physician Electronically Signed By:MARY HERRING
--- NOTE | 2023-05-15 08:04 | ED.GENADULT ---
HPI - General Adult General Chief complaint: General Medical Stated complaint: FEELS UNWELL PER EMS Time Seen by Provider: 05/15/23 07:59 Source: patient, EMS, RN notes reviewed and old records reviewed Mode of arrival: EMS History of Present Illness HPI narrative: 82-year-old female with no significant past medical history presenting to the ED from [facility] via EMS s/p feeling faint and unwell this morning. Reports mild symptomatic improvement at present. Denies fall/injury, headache, CP/SOB, abdominal pain, nausea/vomiting, fever, cough, dysuria, lightheadedness/dizziness. Onset (ago): hour(s) Related Data Home Medications Medication Instructions Recorded Confirmed acetaminophen 500 mg tablet 500 mg PO Q6H PRN Pain 03/05/23 03/05/23 Previous Rx's Medication Instructions Recorded amlodipine 2.5 mg tablet 2.5 mg PO DAILY #30 tabs 03/06/23 cefuroxime axetil 500 mg tablet 500 mg PO BID #8 tabs 03/06/23 cefuroxime axetil 250 mg tablet 250 mg PO BID 7 days #14 tabs 05/15/23 Allergies Allergy/AdvReac Type Severity Reaction Status Date / Time Influenza Virus Vaccines Allergy Unknown Verified 03/05/23 16:38 Review of Systems Review of Systems: Constitutional: No Fever, No Chills ENT/Mouth: No Ear Pain, No Nasal Congestion, No sore throat, No Rhinorrhea, No Swallowing Difficulty Cardiovascular: No Chest Pain, No SOB Respiratory: No Cough, No Sputum, No Wheezing Gastrointestinal: No Nausea, No Vomiting, No Diarrhea, No Constipation, No Abdominal pain Genitourinary: No Dysuria, No Urinary Frequency, No Hematuria, No Flank Pain Musculoskeletal: No joint pain, No Myalgias, No Joint Swelling Skin: No Skin Lesions, No rash Neuro: No Weakness, No Numbness, No Paresthesias, + faint , No lightheadedness/dizziness Yes all other systems are reviewed and are negative Constitutional: Constitutional: Reports as per HPI Neurologic: Denies Abnormal speech present [facility] Past Medical History Attestation statement: The following information was validated with the patient. Source: old records reviewed Medical History Alcohol abuse Social History Social History Household Members: Other Household Members Other:: assisted living. Housing: Assisted Living Facility Do you presently have visiting nurse or other home services: No Patient Tobacco Use Status: Current someday Tobacco user Tobacco use type: Cigarette Cigarettes Per Day: 1 Advance Directives: Yes Advance Directives Information Provided: Yes Advance Directives on File: No service: No Physical Exam ED Vital Signs: Vital Signs - 24 hr 05/15/23 07:48 05/15/23 08:45 05/15/23 08:52 Temperature 98.3 F 98.3 F Pulse Rate 65 71 68 Respiratory Rate 18 18 Blood Pressure 176/87 H 184/92 H 151/71 H Pulse Oximetry 98 98 Oxygen Delivery Method Room Air Room Air 05/15/23 08:52 05/15/23 08:52 Temperature Pulse Rate 70 71 Respiratory Rate Blood Pressure 138/83 141/84 H Pulse Oximetry Oxygen Delivery Method BMI result Body Mass Index 23.3 Const General: cooperative, healthy appearing and no acute distress Orientation/consciousness: patient oriented x3 Limitations: no limitations HENMT Head: Yes normal to inspection and Yes atraumatic Ears: hearing grossly normal bilaterally General nose exam: Normal external nose present Face and sinus: Yes normal facial exam Throat: Yes posterior oropharynx normal and Yes uvula midline Eyes General: appearance normal, both eyes and all related structures Pupils: Equal, round and reactive pupils present EOM: EOMs intact bilaterally Neck Neck: Yes normal visual inspection and Yes no meningeal signs Resp Effort & Inspection: normal respiratory effort and no respiratory distress Auscultation: clear to auscultation bilaterally, no crackles, no rales, no rhonchi and no wheezes Cardio Rate: regular rate Heart sounds: S1 normal heart sound present and S2 normal heart sound present GI Inspection: Yes normal to inspection Palpation (GI): Soft to palpation, nontender, no guarding and not rigid Skin Rashes: no rashes Wounds: no wounds Neuro General: patient oriented x3, gait normal, tone normal, moves all extremities, no meningeal signs, no focal motor deficits and CN's II-XI intact bilaterally Cranial nerves: Yes CN's II-XII intact bilaterally and Yes Equal, round and reactive pupils present Cognition (Neuro): normal cognition Speech: No Abnormal speech present Gait exam (Neuro): Normal gait present Motor exam (neuro): 5/5 motor strength present throughout, Pronator motor function not present and no tremor noted Coordination: [id number] test normal Romberg Test: Negative Extrem General: Yes normal to inspection and Yes no pedal edema Course Course Course Narrative: -1332--no leukocytosis. Labs otherwise reassuring. Troponin negative -UA infected with wbc's and leuk esterase. P.o. Ceftin ordered -COVID/was/RSV negative XR chest 1V IMPRESSION: No acute cardiopulmonary disease. > patient's son at bedside states she is at baseline. Will give 1st dose of Ceftin in the ED and sent prescription. He feels comfortable with discharge. Results discussed with patient including worrisome signs and symptoms and strict return precautions, and when to return to the emergency department. They verbalized understanding and feel safe for discharge at this time. Medical Decision Making Medical Decision Making [facility] Narrative: 82-year-old female with no significant past medical history presenting to the ED from [facility] via EMS s/p feeling faint and unwell this morning. Reports mild symptomatic improvement at present. On exam vital signs stable, NAD, nontoxic appearing, A&O x3, no focal neuro deficits, exam otherwise benign. Concern for viral illness vs metabolic/infectious etiologies. Lower suspicion for CVA/TIA. No evidence of trauma Plan: EKG, labs, UA, CXR, viral testing, re-evaluate Please refer to course for remaining clinical decision making, interpretation of labs/imaging results, and discussions with consultants and/or family members. Differential Diagnosis Differential Diagnoses: The differential diagnosis associated with the presentation includes As above Admission/Observation Consideration of admission/observation: Escalation of care including admission/observation considered Lab Data [facility] Lab Attestation statement: I reviewed the patient's lab results. 05/15/23 08:01 05/15/23 08:01 Labs: Lab Results 05/15/23 05/15/23 05/15/23 Range/Units 08:01 11:08 11:17 WBC 6.7 (4.8-10.8) X10*3/uL RBC 4.09 L (4.20-5.50) X10*6/uL Hgb 13.3 (12.0-16.0) g/dl Hct 39.2 (37.0-47.0) % MCV 95.8 (80.0-98.0) fL MCH 32.5 (27.0-33.0) pg MCHC 33.9 (31.0-35.0) g/dl RDW 12.6 (11.0-16.0) % Plt Count 393 (160-400) X10*3/uL MPV 8.6 L (9.4-12.3) fL Immature Gran % (Auto) 0.4 (0.0-0.4) % Neut % (Auto) 54.6 (45-73) % Lymph % (Auto) 31.3 (20-40) % [place] % (Auto) 11.0 (2-11) % Eos % (Auto) 1.8 (0-4) % Baso % (Auto) 0.9 (0-2) % Lymph # (Auto) 2.1 (1.2-4.9) X10*3/uL [place] # (Auto) 0.7 (0.1-1.2) X10*3/uL Eos # (Auto) 0.1 (0.0-0.4) X10*3/uL Baso # (Auto) 0.1 (0.0-0.2) X10*3/uL Abs Immat Gran (auto) 0.03 (0.00-0.03) X10*3/uL Absolute Neuts (auto) 3.7 (2.0-8.3) x10*3/uL Absolute Nucleated RBC 0.000 (0.0-0.012) X10*3/uL Nucleated RBC % (auto) 0.0 (0.0-0.2) /100WBC Sodium 135 (135-145) mmol/L Potassium 4.1 (3.3-5.1) mmol/L Chloride 102 (96-108) mmol/L Carbon Dioxide 25 (22-29) mmol/L Anion Gap 12 (12-20) BUN 8 L (9-16) mg/dL Creatinine 0.75 (0.5-1.4) mg/dL Estim Creat Clear Calc 48.2 Estimated GFR > 60 Random Glucose 92 (60-115) mg/dL Calcium 9.4 (8.4-10.2) mg/dL Magnesium 1.9 (1.6-2.6) mg/dL Total Bilirubin 0.5 (0.0-1.0) mg/dL AST 22 (5-31) U/L ALT 11 (0-31) U/L Alkaline Phosphatase 70 (39-117) U/L Troponin I High Sens < 2.7 (<3.5-17.0) ng/L Total Protein 7.7 (6.5-8.0) g/dL Albumin 3.7 (3.5-5.0) g/dL Urine Color Yellow Urine Appearance Clear Urine pH 6.5 (5.0-9.0) Ur Specific [place] 1.010 (1.005-1.025) Urine Protein Negative (Neg-Trace) mg/dL Urine Glucose (UA) Negative (Negative) mg/dL Urine Ketones Negative (Negative) mg/dL Urine Blood Trace (Negative) Urine Nitrite Negative (Negative) Ur Leukocyte Esterase Small (1+) H (Negative) Urine RBC 0-2 (0-2) /HPF Urine WBC 6-10 H (0-5) /HPF Ur Squamous Epith Cells 3-5 (0-2) /HPF Urine Bacteria None Seen (None Seen) Hyaline Casts 0-2 (0-2) /LPF Influenza Type A (PCR) NEGATIVE (Negative) Influenza Type B (PCR) NEGATIVE (Negative) RSV RNA Qual (PCR) NEGATIVE (Negative) SARS-CoV-2 RNA (RT-PCR) NEGATIVE (Negative) Independent Interpretation I performed an independent interpretation of an: EKG and Plain X-Ray Radiology Impression Discussion of test interpretation with radiology: I have reviewed the radiologist's reading. Independent Historian Clinical information obtained from an independent historian. History obtained from or confirmed by: EMS External Record Review External record reviewed: Inpatient record, Office record, Outpatient record, Prior outpatient labs, Prior outpatient radiology, Primary care record and Outside ED record Tests considered The following testing was considered but not selected: As above Social Determinants Patient?s care significantly limited by Social Determinants of Health including: Other Social Determinant of Health Discharge Plan Discharge Clinical Impression: Acute UTI Patient Disposition: Xfer Other Transfer Details: [facility] Instructions: Urinary Tract Infection in Older Adults (ED) Additional Instructions: You have a urinary tract infection. Ceftin is an antibiotic please take as prescribed Make sure you are staying hydrated If symptoms persist or worsen you develop fever, abdominal pain, you are unable to urinate please return to the ED Prescriptions: New cefuroxime axetil 250 mg tablet 250 mg PO BID 7 Days Qty: 14 0RF No Action acetaminophen 500 mg Tablet 500 mg PO Q6H PRN (Reason: Pain) amlodipine 2.5 mg tablet 2.5 mg PO DAILY Qty: 30 0RF cefuroxime axetil 500 mg tablet 500 mg PO BID Qty: 8 0RF Referrals: Rosa Maria Mora PA-C [Primary Care Provider] - 5 days
[2023-05-15 08:06] LABS: MANUAL DIFF FLAG NO
[2023-05-15 08:14] LABS: Basophils Absolute Auto 0.1 X10*3/uL (0.0-0.2); Basophils Percent Auto 0.9 % (0-2); Eosinophils Absolute Auto 0.1 X10*3/uL (0.0-0.4); Eosinophils Percent Auto 1.8 % (0-4); Hematocrit 39.2 % (37.0-47.0); Hemoglobin 13.3 g/dl (12.0-16.0); Imm Gran Abs Auto 0.03 X10*3/uL (0.00-0.03); Imm Gran Pct Auto 0.4 % (0.0-0.4); Lymphocytes Absolute Auto 2.1 X10*3/uL (1.2-4.9); Lymphocytes Percent Auto 31.3 % (20-40); Mean Corpuscular HGB Conc 33.9 g/dl (31.0-35.0); Mean Corpuscular Hemoglobin 32.5 pg (27.0-33.0); Mean Corpuscular Volume 95.8 fL (80.0-98.0); Mean Platelet Volume 8.6 fL (9.4-12.3); Monocytes Absolute Auto 0.7 X10*3/uL (0.1-1.2); Neutrophils Absolute Auto 3.7 x10*3/uL (2.0-8.3); Neutrophils Percent Auto 54.6 % (45-73); Platelet Count 393 X10*3/uL (160-400); Red Blood Count 4.09 X10*6/uL (4.20-5.50); Red Cell Distribution Width 12.6 % (11.0-16.0); White Blood Count 6.7 X10*3/uL (4.8-10.8)
[2023-05-15 08:27] LABS: Alanine Aminotransferase 11 U/L (0-31); Albumin Level 3.7 g/dL (3.5-5.0); Alkaline Phosphatase 70 U/L (39-117); Anion Gap 12 (12-20); Aspartate Amino Transferase 22 U/L (5-31); Bilirubin Total 0.5 mg/dL (0.0-1.0); Blood Urea Nitrogen 8 mg/dL (9-16); Calcium 9.4 mg/dL (8.4-10.2); Carbon Dioxide 25 mmol/L (22-29); Chloride 102 mmol/L (96-108); Creatinine Clr Calc Pharmacy 48.2; Estimated Glomerular Filt Rate > 60; Glucose Random 92 mg/dL (60-115); Potassium 4.1 mmol/L (3.3-5.1); Sodium 135 mmol/L (135-145); Total Protein 7.7 g/dL (6.5-8.0)
[2023-05-15 08:45] VITALS: BP 184/92; PULSE 71; RESP 18; TEMP 36.8; O2SAT 98
[2023-05-15 08:51] LABS: Magnesium 1.9 mg/dL (1.6-2.6)
[2023-05-15 08:52] VITALS: BP 138/83; BP 141/84; BP 151/71; PULSE 68; PULSE 70; PULSE 71
[2023-05-15 08:59] LABS: Troponin-I High Sensitivity < 2.7 ng/L (<3.5-17.0)
[2023-05-15 11:18] LABS: Appearance Urine Clear; Color Urine Yellow; Glucose Urine UA Negative (Negative); Leukocyte Esterase Urine Small (1+) (Negative); Nitrite Urine Negative (Negative); PH 6.5 (5.0-9.0); UMIC TRIGGER UACC YES; Urine Blood Trace (Negative); Urine Ketones Negative (Negative); Urine Protein Negative (Neg-Trace)
[2023-05-15 11:32] LABS: Bacteria Urine None Seen (None Seen); Hyaline Casts Urine 0-2 /LPF (0-2); RBC Urine 0-2 /HPF (0-2); UACC Culture Trigger YES
[2023-05-15 12:06] LABS: Influenza A PCR NEGATIVE (Negative); Influenza B PCR NEGATIVE (Negative); Resp Syncy Virus RNA Qual PCR NEGATIVE (Negative); SARS COV2 PCR INHOUSE NEGATIVE (Negative)
[2023-05-15] MEDS: cefuroxime axetiL 250 MG TABLET PO (14:20)
== END 2023-05-15 14:36 | disposition home or self-care (01) ==
PROVIDERS: Physician Assistant; Emergency Provider Emergency Medicine Emergency Medical Services; PCP Physician Assistant
DX: N39.0 Urinary tract infection, site not specified (principal); R07.89 Other chest pain; R53.83 Other fatigue; F17.210 Nicotine dependence, cigarettes, uncomplicated; Z20.822 Contact with and (suspected) exposure to COVID-19; Z20.828 Contact with and (suspected) exposure to other viral communicable diseases; Z79.899 Other long term (current) drug therapy; Z71.6 Tobacco abuse counseling
CPT/HCPCS: 0241U; 36415; 71045; 80053; 81001; 83735; 84484; 85025; 87086; 93005; 99283; 99284

== ENCOUNTER → 2023-05-15 07:54 | Outpatient (BNV) | payer MEDICARE, OTHER, SELFPAY | PROVIDERS: Emergency Provider Emergency Medicine Emergency Medical Services; PCP Physician Assistant; Visit Provider Internal Medicine | DX: R53.83 Other fatigue (principal) | CPT/HCPCS: 93010 ==

== ENCOUNTER 2023-07-30 10:20 | Emergency (ER) | payer MEDICARE, OTHER, SELFPAY ==
--- NOTE | ~2023-07-30 | CT_ITS ---
EXAMINATION: CT ABDOMEN AND PELVIS WITHOUT CONTRAST CLINICAL INFORMATION: Abdominal pressure COMPARISON: None available. TECHNIQUE: Multidetector volumetric imaging was performed from the superior aspect of the liver through the pubic symphysis. Sagittal and coronal reformatted images were obtained on the technologist's workstation. This CT examination was performed using dose optimization techniques as appropriate, variously including the following: *Automated exposure control *Adjustment of mA and/or kV according to patient size (this includes techniques or standardized protocols for targeted exams where dose is matched to indication/reason for exam; i.e. extremities or head) *Use of iterative reconstruction technique DLP: Calcified granuloma right lung base. Bibasilar atelectasis. No pneumothorax. Valvular calcifications are noted. mGy-cm FINDINGS: LUNG BASES: The visualized lung bases are unremarkable. LIVER, GALLBLADDER, AND BILIARY TREE: The liver is normal in size, shape, and attenuation. Calcification right hepatic lobe No focal hepatic lesion or biliary ductal dilatation is present. The gallbladder is unremarkable with no evidence of radiopaque gallstones, gallbladder wall thickening, or obvious pericholecystic inflammatory changes. PANCREAS: Unremarkable. SPLEEN: Unremarkable. ADRENAL GLANDS: Unremarkable. KIDNEYS AND URETERS: The kidneys are normal in size, shape, and attenuation. No hydronephrosis, hydroureter, or calculi seen. No perinephric stranding. BLADDER: Unremarkable. GASTROINTESTINAL TRACT: The small to moderate hiatal hernia. Fecal loading of the colon. Small and large bowel are unremarkable. The appendix is not definitively visualized. ABDOMINAL WALL: No significant hernia is appreciated. LYMPH NODES: No enlarged lymph nodes per size criteria. VASCULAR: Abdominal aorta is not aneurysmal. Atherosclerotic calcifications of the abdominal aorta and its branches. PELVIC VISCERA: Inverted uterus OSSEOUS STRUCTURES: Loss of height along the superior endplate of T12, chronicity indeterminate. Correlation with physical exam. Osteopenia. Multilevel degenerative changes of the thoracolumbar and lumbosacral spine. CT/CT abdomen pelvis wo IV con IMPRESSION: 1. No acute process of the abdomen or pelvis identified. 2. Small to moderate hiatal hernia. 3. Fecal loading of the colon. 4. Loss of height along the superior endplate of T12, chronicity indeterminate. Correlation with physical exam. 5. Osteopenia.
[2023-07-30 10:39] VITALS: BP 120/76; PULSE 78; O2SAT 96; BMI 22.5
[2023-07-30 10:43] VITALS: BP 127/67; PULSE 72; RESP 16; TEMP 36.6; O2SAT 98
--- NOTE | 2023-07-30 10:47 | ED.ABDPAIN ---
HPI - Abdominal Pain General Chief Complaint: Abdominal Pain Stated Complaint: ABD PAIN Time Seen by Provider: 07/30/23 10:42 Source: patient and EMS Mode of arrival: EMS Limitations: no limitations History of Present Illness HPI narrative: 82-year-old female presents with abdominal pain that started this morning reports she just does not feel well. Tells me her stomach just feels full and it feels like there is a lot of pressure. She states she feels a little bit better now however discomfort is still there. She reports earlier she also felt slightly lightheaded when she stood up quickly after she had severe pain however this has also subsided. Denies headache, vision changes, dizziness, weakness, nausea, vomiting, diarrhea, abdominal pain chest pain, shortness of breath, fevers and chills at this time. No recent sick contacts. Related Data Home Medications Medication Instructions Recorded Confirmed acetaminophen 500 mg tablet 500 mg PO Q6H PRN Pain 03/05/23 03/05/23 Previous Rx's Medication Instructions Recorded amlodipine 2.5 mg tablet 2.5 mg PO DAILY #30 tabs 03/06/23 cefuroxime axetil 500 mg tablet 500 mg PO BID #8 tabs 03/06/23 cefuroxime axetil 250 mg tablet 250 mg PO BID 7 days #14 tabs 05/15/23 docusate sodium 100 mg capsule 100 mg PO BID #20 caps 07/30/23 (Colace) polyethylene glycol 3350 17 17 g PO BID PRN constipation #238 07/30/23 gram/dose oral powder (Miralax) grams sennosides 8.6 mg tablet (senna) 8.6 mg PO BEDTIME #14 tabs 07/30/23 Allergies Allergy/AdvReac Type Severity Reaction Status Date / Time Influenza Virus Vaccines Allergy Unknown Verified 03/05/23 16:38 Review of Systems Review of Systems Yes all other systems are reviewed and are negative [facility] Past Medical History Attestation statement: The following information was validated with the patient. Source: old records reviewed and nursing notes reviewed Medical History Alcohol abuse Social History Social History Household Members: Other Household Members Other:: assisted living. Housing: Assisted Living Facility Do you presently have visiting nurse or other home services: No Alcohol intake: current Alcohol intake frequency: 3 or more drinks per day Alcohol type: beer Patient Tobacco Use Status: Current someday Tobacco user Tobacco use type: Cigarette Cigarettes Per Day: 1 Smoked in Last 30 Days: Yes Use of substances other than those prescribed or required for medical reasons: No Advance Directives: No Advance Directives Information Provided: No service: No Physical Exam ED Vital Signs: Vital Signs - 24 hr 07/30/23 10:43 07/30/23 12:52 07/30/23 12:53 Temperature 97.9 F Pulse Rate 72 74 85 Respiratory Rate 16 Blood Pressure 127/67 148/73 H 165/107 H Pulse Oximetry 98 Oxygen Delivery Method Room Air 07/30/23 12:53 07/30/23 14:54 Temperature 98.1 F Pulse Rate 81 84 Respiratory Rate 18 Blood Pressure 153/93 H 179/98 H Pulse Oximetry 96 Oxygen Delivery Method Room Air BMI result Body Mass Index 22.5 vss Appearance: Alert.? Oriented X3.? No acute distress.? Head: Normocephalic, atraumatic, no step-offs or deformities Eyes: Pupils equal, round and reactive to lightENT: Pharynx normal.? Neck: Normal inspection.? Neck supple.? CVS: Normal heart rate and rhythm.? Pulses normal.? Respiratory: No respiratory distress.? Breath sounds normal.? Abdomen: Soft and nontender.? Skin: Skin warm and dry.? Normal skin color.? Normal skin turgor.? Extremities: No lower extremity edema.? No calf ttp. Global weakness. Neuro: Oriented X 3.? No motor deficit.? No sensory deficit. CN 2-12 intact . Ambulating with steady gait normal coordination. Normal [id number], [id number]. NIH stroke scale 0 Course Reevaluation(s) Reevaluation #1: CBC unremarkable. Chemistry with a sodium of 128 will give normal saline. Ethanol negative. COVID negative. UA pending. CT pending. Time: 11:42 Reevaluation #2: UA without infection. CT abdomen and pelvis with no acute process of the abdomen or pelvis. Small to moderate hiatal hernia unlikely incarcerated. Fecal loading of the colon. Will discharge patient home with stool softeners. Will recheck sodium and ensure it improved. Time: 14:35 Reevaluation #3: Patient wants to get out of here. Her sodium improved 132. No other electrolyte abnormalities requiring intervention. Tolerating p.o.. Walking around the department. States she does not want to stay here and feels better. Will discharge home with bowel regimen. Educated patient on diagnosis and treatment plan, answered all question, patient verbalizes understanding. At this time patient will be discharged home, advised to return with new or worsening symptoms. Educated on worrisome signs and symptoms and when to return. At this time I feel comfortable discharge home. Time: 15:22 Medical Decision Making Medical Decision Making [facility] Narrative: 1050 82 year old fema presents w/ abdominal fullness earlier however now resolved. No complaints at this time. PE benign Likely gas pain vs cramping vs viral illness. Unlikely obstruction, AAA, disection, acute abdomen, pancreatitis, cholecystitis, appendicitis, diverticulitis. Will rule out UTI, electrolyte abnormalities. Will rule out constipation Plan- labs, imaing, UA Differential Diagnosis Differential Diagnoses: The differential diagnosis associated with the presentation includes Likely gas pain vs cramping vs viral illness. Unlikely obstruction, AAA, disection, acute abdomen, pancreatitis, cholecystitis, appendicitis, diverticulitis. Will rule out UTI, electrolyte abnormalities. Will rule out constipation Admission/Observation Consideration of admission/observation: Escalation of care including admission/observation considered Possible. Lab Data [facility] Lab Attestation statement: I reviewed the patient's lab results. 07/30/23 11:12 07/30/23 14:52 Labs: Lab Results 07/30/23 07/30/23 07/30/23 Range/Units 11:12 12:39 14:52 WBC 10.7 (4.8-10.8) X10*3/uL RBC 4.40 (4.20-5.50) X10*6/uL Hgb 14.1 (12.0-16.0) g/dl Hct 40.6 (37.0-47.0) % MCV 92.3 (80.0-98.0) fL MCH 32.0 (27.0-33.0) pg MCHC 34.7 (31.0-35.0) g/dl RDW 12.3 (11.0-16.0) % Plt Count 307 (160-400) X10*3/uL MPV 8.6 L (9.4-12.3) fL Immature Gran % (Auto) 0.4 (0.0-0.4) % Neut % (Auto) 76.6 H (45-73) % Lymph % (Auto) 10.0 L (20-40) % [place] % (Auto) 11.7 H (2-11) % Eos % (Auto) 0.8 (0-4) % Baso % (Auto) 0.5 (0-2) % Lymph # (Auto) 1.1 L (1.2-4.9) X10*3/uL [place] # (Auto) 1.3 H (0.1-1.2) X10*3/uL Eos # (Auto) 0.1 (0.0-0.4) X10*3/uL Baso # (Auto) 0.1 (0.0-0.2) X10*3/uL Abs Immat Gran (auto) 0.04 H (0.00-0.03) X10*3/uL Absolute Neuts (auto) 8.2 (2.0-8.3) x10*3/uL Absolute Nucleated RBC 0.000 (0.0-0.012) X10*3/uL Nucleated RBC % (auto) 0.0 (0.0-0.2) /100WBC Sodium 128 L 132 L (135-145) mmol/L Potassium 4.2 4.4 (3.3-5.1) mmol/L Chloride 98 101 (96-108) mmol/L Carbon Dioxide 23 22 (22-29) mmol/L Anion Gap 11 L 13 (12-20) BUN 11 10 (9-16) mg/dL Creatinine 0.73 0.71 (0.5-1.4) mg/dL Estim Creat Clear Calc 49.5 50.9 Estimated GFR > 60 > 60 Random Glucose 120 H 90 (60-115) mg/dL Calcium 8.9 8.8 (8.4-10.2) mg/dL Magnesium 1.9 (1.6-2.6) mg/dL Total Bilirubin 0.8 (0.0-1.0) mg/dL AST 21 (5-31) U/L ALT 15 (0-31) U/L Alkaline Phosphatase 81 (39-117) U/L Total Protein 7.4 (6.5-8.0) g/dL Albumin 3.6 (3.5-5.0) g/dL Lipase 27 (8-78) U/L Urine Color Yellow Urine Appearance Clear Urine pH 6.0 (5.0-9.0) Ur Specific [place] 1.010 (1.005-1.025) Urine Protein Negative (Neg-Trace) mg/dL Urine Glucose (UA) Negative (Negative) mg/dL Urine Ketones Negative (Negative) mg/dL Urine Blood Negative (Negative) Urine Nitrite Negative (Negative) Ur Leukocyte Esterase Small (1+) H (Negative) Urine RBC 0-2 (0-2) /HPF Urine WBC 6-10 H (0-5) /HPF Ur Squamous Epith Cells 3-5 (0-2) /HPF Urine Bacteria None Seen (None Seen) Hyaline Casts 3-5 (0-2) /LPF Ethyl Alcohol < 10 mg/dL COVID-19 (GIANA) Negative (Negative) COVID-19 Clin Com See Note Independent Interpretation I performed an independent interpretation of an: Plain X-Ray and CT Scan (CT/CT abdomen pelvis wo IV con IMPRESSION: 1. No acute process of the abdomen or pelvis identified. 2. Small to moderate hiatal hernia. 3. Fecal loading of the colon. 4. Loss of height along the superior endplate of T12, chronicity indeterminate. Correlation with physical exam. 5. Osteopenia. ) Radiology Impression Discussion of test interpretation with radiology: I have reviewed the radiologist's reading. Prescription Management I considered prescription management with: Other (stool softeners.) Chronic Conditions Patient?s care impacted by: Other (Recurrent UTI) Medications Administered Discontinued Medications Generic Name Dose Route Start Last Admin Trade Name Freq PRN Reason Stop Dose Admin Sodium Chloride 1,000 mls @ 999 mls/hr 07/30/23 11:45 07/30/23 14:02 Ns IV 07/30/23 12:45 Infused .Q1H1M BARBARA Infusion Critical Care Time Critical Care Time Critical Care Time: Yes Total Critical Care Time: 35 Attestation: I attest to this time spent taking care of the patient, obtaining history, physical, reviewing labs, imaging. Correcting electrolyte abnormalities. Discharge Plan Discharge Clinical Impression: Abdominal pain, Hyponatremia, Constipation Patient Disposition: Home, Self-Care Instructions: Constipation (ED), High Fiber Diet (ED), Hyponatremia (ED), Abdominal Pain (ED) Additional Instructions: Take your medications as prescribed. If you were prescribed antibiotics today, it is important that you take your medication to their entirety, do not skip any doses, do not finish them early. Follow-up with your primary care provider this week. Return to the emergency department with new or worsening symptoms. Such as fevers, chills, chest pain, shortness of breath, nausea, vomiting, dizziness, headache, vision changes, lethargy In case of emergency call 911 Your sodium was noted to be slightly on the low side 128 fluids were given and it improved and went up to 132. Please follow-up with your PCP for repeat labs within a week. Your CT scan showed constipation it could be contributing to abdominal discomfort/fullness. Stool softener sent to your pharmacy. Return with any new or worsening symptoms. Prescriptions: New sennosides [senna] 8.6 mg tablet 8.6 mg PO BEDTIME Qty: 14 0RF docusate sodium [Colace] 100 mg capsule 100 mg PO BID Qty: 20 0RF polyethylene glycol 3350 [Miralax] 17 gram/dose powder 17 g PO BID PRN (Reason: constipation) Qty: 238 0RF No Action acetaminophen 500 mg Tablet 500 mg PO Q6H PRN (Reason: Pain) amlodipine 2.5 mg tablet 2.5 mg PO DAILY Qty: 30 0RF cefuroxime axetil 500 mg tablet 500 mg PO BID Qty: 8 0RF cefuroxime axetil 250 mg tablet 250 mg PO BID 7 Days Qty: 14 0RF Referrals: Physician,Unknown J [Primary Care Provider] - 2 days [facility] [Provider Group] - 3 days
[2023-07-30 11:17] LABS: MANUAL DIFF FLAG NO
[2023-07-30 11:25] LABS: Basophils Absolute Auto 0.1 X10*3/uL (0.0-0.2); Basophils Percent Auto 0.5 % (0-2); Eosinophils Absolute Auto 0.1 X10*3/uL (0.0-0.4); Eosinophils Percent Auto 0.8 % (0-4); Hematocrit 40.6 % (37.0-47.0); Hemoglobin 14.1 g/dl (12.0-16.0); Imm Gran Abs Auto 0.04 X10*3/uL (0.00-0.03); Imm Gran Pct Auto 0.4 % (0.0-0.4); Lymphocytes Absolute Auto 1.1 X10*3/uL (1.2-4.9); Mean Corpuscular HGB Conc 34.7 g/dl (31.0-35.0); Mean Corpuscular Volume 92.3 fL (80.0-98.0); Mean Platelet Volume 8.6 fL (9.4-12.3); Monocytes Absolute Auto 1.3 X10*3/uL (0.1-1.2); Monocytes Percent Auto 11.7 % (2-11); Neutrophils Absolute Auto 8.2 x10*3/uL (2.0-8.3); Neutrophils Percent Auto 76.6 % (45-73); Platelet Count 307 X10*3/uL (160-400); Red Cell Distribution Width 12.3 % (11.0-16.0); White Blood Count 10.7 X10*3/uL (4.8-10.8)
[2023-07-30 11:31] LABS: Ethanol < 10 mg/dL
[2023-07-30 11:34] LABS: Alanine Aminotransferase 15 U/L (0-31); Albumin Level 3.6 g/dL (3.5-5.0); Alkaline Phosphatase 81 U/L (39-117); Anion Gap 11 (12-20); Aspartate Amino Transferase 21 U/L (5-31); Bilirubin Total 0.8 mg/dL (0.0-1.0); Blood Urea Nitrogen 11 mg/dL (9-16); Calcium 8.9 mg/dL (8.4-10.2); Carbon Dioxide 23 mmol/L (22-29); Chloride 98 mmol/L (96-108); Creatinine Clr Calc Pharmacy 49.5; Estimated Glomerular Filt Rate > 60; Glucose Random 120 mg/dL (60-115); Lipase 27 U/L (8-78); Magnesium 1.9 mg/dL (1.6-2.6); Potassium 4.2 mmol/L (3.3-5.1); Sodium 128 mmol/L (135-145); Total Protein 7.4 g/dL (6.5-8.0)
[2023-07-30 11:35] LABS: COVID-19 Test Negative (Negative); IDNOW Serial# 152EDE1D
[2023-07-30] MEDS: 0.9 % Sodium Chloride 1,000 ML 999 ML IV (12:40)
[2023-07-30 12:45] LABS: Appearance Urine Clear; Color Urine Yellow; Glucose Urine UA Negative (Negative); Leukocyte Esterase Urine Small (1+) (Negative); Nitrite Urine Negative (Negative); UMIC TRIGGER UACC YES; Urine Blood Negative (Negative); Urine Ketones Negative (Negative); Urine Protein Negative (Neg-Trace)
[2023-07-30 12:51] LABS: Bacteria Urine None Seen (None Seen); RBC Urine 0-2 /HPF (0-2); UACC Culture Trigger YES
[2023-07-30 12:52] VITALS: BP 148/73; PULSE 74
[2023-07-30 12:53] VITALS: BP 153/93; BP 165/107; PULSE 81; PULSE 85
[2023-07-30 14:54] VITALS: BP 179/98; PULSE 84; RESP 18; TEMP 36.7; O2SAT 96
[2023-07-30 15:20] LABS: Anion Gap 13 (12-20); Blood Urea Nitrogen 10 mg/dL (9-16); Calcium 8.8 mg/dL (8.4-10.2); Carbon Dioxide 22 mmol/L (22-29); Chloride 101 mmol/L (96-108); Creatinine Clr Calc Pharmacy 50.9; Estimated Glomerular Filt Rate > 60; Glucose Random 90 mg/dL (60-115); Potassium 4.4 mmol/L (3.3-5.1); Sodium 132 mmol/L (135-145)
== END 2023-07-30 15:41 | disposition home or self-care (01) ==
PROVIDERS: Physician Assistant; Emergency Provider Emergency Medicine
DX: K59.00 Constipation, unspecified (principal); R10.30 Lower abdominal pain, unspecified; E87.1 Hypo-osmolality and hyponatremia; R42 Dizziness and giddiness; F17.210 Nicotine dependence, cigarettes, uncomplicated; Z11.52 Encounter for screening for COVID-19
CPT/HCPCS: 36415; 74176; 80048; 80053; 80307; 81001; 83690; 83735; 85025; 87086; 87635; 96360; 99284; 99285

== ENCOUNTER 2023-08-05 07:12 | Emergency (ER) | payer MEDICARE, OTHER, SELFPAY ==
--- NOTE | ~2023-08-05 | CT_ITS ---
EXAMINATION: CT ABDOMEN AND PELVIS WITHOUT CONTRAST CLINICAL INFORMATION: 82-year-old female with abdominal pain COMPARISON: 07/30/2023 TECHNIQUE: Multidetector volumetric imaging was performed from the superior aspect of the liver through the pubic symphysis. Sagittal and coronal reformatted images were obtained on the technologist's workstation. This CT examination was performed using dose optimization techniques as appropriate, variously including the following: *Automated exposure control *Adjustment of mA and/or kV according to patient size (this includes techniques or standardized protocols for targeted exams where dose is matched to indication/reason for exam; i.e. extremities or head) *Use of iterative reconstruction technique DLP: 328 mGy-cm FINDINGS: LUNG BASES: There is stable calcified 0.4 cm nodule in the right lung base. LIVER, GALLBLADDER, AND BILIARY TREE: The liver is normal in size, shape, and attenuation. No focal hepatic lesion or biliary ductal dilatation is present. The gallbladder is unremarkable with no evidence of radiopaque gallstones, gallbladder wall thickening, or obvious pericholecystic inflammatory changes. PANCREAS: Unremarkable. SPLEEN: Unremarkable. ADRENAL GLANDS: Unremarkable. KIDNEYS AND URETERS: The kidneys are normal in size, shape, and attenuation. No hydronephrosis, hydroureter, or calculi seen. No perinephric stranding. BLADDER: There is circumferentially thickened wall of urinary bladder GASTROINTESTINAL TRACT: The small and large bowel are unremarkable. The appendix is not identified. There is small hiatal hernia ABDOMINAL WALL: No significant hernia is appreciated. LYMPH NODES: Normal. VASCULAR: Unremarkable. PELVIC VISCERA: Unremarkable. OSSEOUS STRUCTURES: There is compression deformity of T12 vertebral body of indeterminate age and mild degenerative changes in lumbar spine. CT/CT abdomen pelvis wo IV con IMPRESSION: 1. Circumferentially thickened wall of urinary bladder. 2. Compression deformity of T12 vertebral body of indeterminate age. Fleischner guidelines were followed.
[2023-08-05 07:19] VITALS: BP 118/78; PULSE 61; O2SAT 96
[2023-08-05 07:26] VITALS: BP 174/63; PULSE 64; RESP 16; TEMP 36.6; O2SAT 98; BMI 22.7
--- NOTE | 2023-08-05 07:31 | ED.ABDPAIN ---
HPI - Abdominal Pain General Chief Complaint: Abdominal Pain Stated Complaint: ABD PAIN DIARRHEA Time Seen by Provider: 08/05/23 07:22 Source: patient Mode of arrival: ambulatory Limitations: no limitations History of Present Illness HPI narrative: 82-year-old female came in for evaluation for abdominal pain. Patient been having abdominal pain for long time that is start getting worse since 05:00 o'clock in the morning pain in the mid abdomen radiates to the back, no fever, no chills, no nausea, no vomiting, patient live at [facility] independently and mostly functional, patient do not remember if she had intra-abdominal surgery. No nausea, no vomiting, no dysuria, no frequency urination. Patient was seen in the emergency department 6 days ago for abdominal pain had unremarkable workup. Related Data Home Medications Medication Instructions Recorded Confirmed acetaminophen 500 mg tablet 500 mg PO Q6H PRN Pain 03/05/23 03/05/23 Previous Rx's Medication Instructions Recorded amlodipine 2.5 mg tablet 2.5 mg PO DAILY #30 tabs 03/06/23 cefuroxime axetil 500 mg tablet 500 mg PO BID #8 tabs 03/06/23 cefuroxime axetil 250 mg tablet 250 mg PO BID 7 days #14 tabs 05/15/23 docusate sodium 100 mg capsule 100 mg PO BID #20 caps 07/30/23 (Colace) polyethylene glycol 3350 17 17 g PO BID PRN constipation #238 07/30/23 gram/dose oral powder (Miralax) grams sennosides 8.6 mg tablet (senna) 8.6 mg PO BEDTIME #14 tabs 07/30/23 Allergies Allergy/AdvReac Type Severity Reaction Status Date / Time Influenza Virus Vaccines Allergy Unknown Verified 08/05/23 07:32 Review of Systems Review of Systems All other systems are reviewed and are negative Constitutional: Reports as per HPI and Reports no additional constitutional complaints Eyes: Reports as per HPI and Reports no additional eye complaints Reports system reviewed and no additional complaints, except as documented Cardiovascular: Reports as per HPI and Reports no additional cardiovascular complaints Respiratory: Reports as per HPI and Reports no additional respiratory complaints Gastrointestinal: Reports as per HPI and Reports no additional gastrointestinal complaints Genitourinary: Reports no additional female genitourinary complaints Musculoskeletal: Reports no additional musculoskeletal complaints Skin/Breast: Reports system reviewed and no additional complaints, except as docu Psychiatric: Reports no additional psychiatric complaints Endocrine: Reports no additional endocrine complaints Hematologic/Lymphatic: Reports no additional hematologic/lymphatic complaints Allergic/Immunologic: Reports no additional allergic/immunologic complaints Reports system reviewed and no additional complaints, except as documented and Reports Abnormal speech present [facility] Past Medical History Medical History Alcohol abuse Social History Social History Household Members: Other Household Members Other:: assisted living. Housing: Assisted Living Facility Do you presently have visiting nurse or other home services: No Alcohol intake: current Alcohol intake frequency: 3 or more drinks per day Alcohol type: beer Patient Tobacco Use Status: Current someday Tobacco user Tobacco use type: Cigarette Cigarettes Per Day: 1 Advance Directives: No Advance Directives Information Provided: Yes service: No Physical Exam ED Vital Signs: Vital Signs - 24 hr 08/05/23 07:26 Temperature 97.8 F Pulse Rate 64 Respiratory Rate 16 Blood Pressure 174/63 H Pulse Oximetry 98 Oxygen Delivery Method Room Air BMI result Body Mass Index 22.7 Vital signs have been reviewed and appear to be correct. Blood pressure elevated. Heart rate normal. Respiratory rate normal. Temperature normal. Oxygen saturation normal. Appearance: Alert. Oriented X3. No acute distress. Head: Normal external exam. Normocephalic. Atraumatic. No Zendejas signs noted. No raccoon eyes noted Eyes: PERRLA. EOMI. Conjunctiva and sclera normal. Eyelids normal. ENT: TM's Normal. Pharynx normal. Uvula midline. Moist mucous membranes. No trismus noted. No drooling noted. No muffled voice noted. Neck: Normal inspection. Neck supple. FROM. No adenopathy. Thyroid Normal. No meningeal signs. No neck mass noted. CVS: Normal heart rate and rhythm. Heart sound normal. No murmurs noted. Pulses normal throughout. Respiratory: No respiratory distress. Painless inspiration. Breath sounds normal. No wheezes/rales/rhonchi noted. Chest nontender. No accessory muscle usage noted or decreased air movement noted. Abdomen: Soft and nontender. Bowel sounds normal in all 4 quadrants. No distention noted. No organomegaly noted. No visible injury noted. Back: No CVA tenderness. Full range of motion noted. Skin: Skin warm and dry. Normal skin color. Normal skin turgor. No rashes/lesions/lacerations noted. Extremities: No lower extremity edema. Extremities exhibit normal range of motion. Extremities nontender. Neuro: Oriented X 3. Cranial nerve exam: II-XII are grossly intact No motor deficit. No sensory deficit. Reflexes normal. Course Reevaluation(s) Reevaluation #1: Mid back pain and abdominal pain which could be secondary to T12 vertebral body compression deformity. Otherwise rest of labs is unremarkable for acute pathology. Will start physician observation for physical therapy evaluation and placement to her rehab facility. Await for UA. Time: 12:12 Medical Decision Making Differential Diagnosis Differential Diagnoses: The differential diagnosis associated with the presentation includes (Colitis, diverticulitis, pancreatitis, acute cholecystitis, electrolyte derangement, severe anemia, UTI.) Admission/Observation Consideration of admission/observation: Escalation of care including admission/observation considered Lab Data [facility]DM Lab Attestation statement: I reviewed the patient's lab results. 08/05/23 08:21 08/05/23 11:12 Labs: Lab Results 08/05/23 08/05/23 08/05/23 Range/Units 08:21 10:15 11:12 WBC 9.4 (4.8-10.8) X10*3/uL RBC 4.30 (4.20-5.50) X10*6/uL Hgb 14.0 (12.0-16.0) g/dl Hct 39.3 (37.0-47.0) % MCV 91.4 (80.0-98.0) fL MCH 32.6 (27.0-33.0) pg MCHC 35.6 H (31.0-35.0) g/dl RDW 12.1 (11.0-16.0) % Plt Count 328 (160-400) X10*3/uL MPV 8.4 L (9.4-12.3) fL Immature Gran % (Auto) 0.3 (0.0-0.4) % Neut % (Auto) 60.7 (45-73) % Lymph % (Auto) 22.8 (20-40) % [place] % (Auto) 12.9 H (2-11) % Eos % (Auto) 2.4 (0-4) % Baso % (Auto) 0.9 (0-2) % Lymph # (Auto) 2.1 (1.2-4.9) X10*3/uL [place] # (Auto) 1.2 (0.1-1.2) X10*3/uL Eos # (Auto) 0.2 (0.0-0.4) X10*3/uL Baso # (Auto) 0.1 (0.0-0.2) X10*3/uL Abs Immat Gran (auto) 0.03 (0.00-0.03) X10*3/uL Absolute Neuts (auto) 5.7 (2.0-8.3) x10*3/uL Absolute Nucleated RBC 0.000 (0.0-0.012) X10*3/uL Nucleated RBC % (auto) 0.0 (0.0-0.2) /100WBC Sodium 127 L 131 L (135-145) mmol/L Potassium 4.2 3.7 (3.3-5.1) mmol/L Chloride 95 L 98 (96-108) mmol/L Carbon Dioxide 23 22 (22-29) mmol/L Anion Gap 13 15 (12-20) BUN 7 L 6 L (9-16) mg/dL Creatinine 0.72 0.68 (0.5-1.4) mg/dL Estim Creat Clear Calc 50.2 53.1 Estimated GFR > 60 > 60 Random Glucose 84 83 (60-115) mg/dL Calcium 8.8 8.6 (8.4-10.2) mg/dL Total Bilirubin 0.5 (0.0-1.0) mg/dL Direct Bilirubin 0.2 (0.0-0.5) mg/dL AST 32 H (5-31) U/L ALT 17 (0-31) U/L Alkaline Phosphatase 83 (39-117) U/L Troponin I High Sens < 2.7 (<3.5-17.0) ng/L Total Protein 7.3 (6.5-8.0) g/dL Albumin 3.5 (3.5-5.0) g/dL Lipase 24 (8-78) U/L Urine Color Yellow Urine Appearance Clear Urine pH 6.5 (5.0-9.0) Ur Specific [place] <= 1.005 (1.005-1.025) Urine Protein Negative (Neg-Trace) mg/dL Urine Glucose (UA) Negative (Negative) mg/dL Urine Ketones Negative (Negative) mg/dL Urine Blood Negative (Negative) Urine Nitrite Negative (Negative) Ur Leukocyte Esterase Negative (Negative) Independent Interpretation I performed an independent interpretation of an: CT Scan (Abdomen and pelvis:. Circumferentially thickened wall of urinary bladder. 2. Compression deformity of T12 vertebral body of indeterminate age. ) Radiology Impression Discussion of test interpretation with radiology: I have reviewed the radiologist's reading. Medications Administered Discontinued Medications Generic Name Dose Route Start Last Admin Trade Name Freq PRN Reason Stop Dose Admin Acetaminophen 325 mg 08/05/23 08:56 08/05/23 09:14 Acetaminophen 325 Mg Tablet PO 08/05/23 08:57 325 mg ONCE ONE Administration Sodium Chloride 1,000 mls @ 999 mls/hr 08/05/23 07:27 08/05/23 11:18 Ns IV 08/05/23 08:27 Infused .Q1H1M ONE Infusion Discharge Plan Discharge Clinical Impression: T12 compression fracture, Hyponatremia Patient Disposition: Home, Self-Care Instructions: Vertebral Compression Fracture (ED) Prescriptions: No Action acetaminophen 500 mg Tablet 500 mg PO Q6H PRN (Reason: Pain) amlodipine 2.5 mg tablet 2.5 mg PO DAILY Qty: 30 0RF cefuroxime axetil 500 mg tablet 500 mg PO BID Qty: 8 0RF cefuroxime axetil 250 mg tablet 250 mg PO BID 7 Days Qty: 14 0RF sennosides [senna] 8.6 mg tablet 8.6 mg PO BEDTIME Qty: 14 0RF docusate sodium [Colace] 100 mg capsule 100 mg PO BID Qty: 20 0RF polyethylene glycol 3350 [Miralax] 17 gram/dose powder 17 g PO BID PRN (Reason: constipation) Qty: 238 0RF
--- NOTE | 2023-08-05 07:53 | PC.NURSE ---
Patient is away for CT scan. Will obtain IV access & labs upon return to ED Bed 2.
[2023-08-05 08:25] LABS: MANUAL DIFF FLAG NO
[2023-08-05 08:28] LABS: Basophils Absolute Auto 0.1 X10*3/uL (0.0-0.2); Basophils Percent Auto 0.9 % (0-2); Eosinophils Absolute Auto 0.2 X10*3/uL (0.0-0.4); Eosinophils Percent Auto 2.4 % (0-4); Hematocrit 39.3 % (37.0-47.0); Imm Gran Abs Auto 0.03 X10*3/uL (0.00-0.03); Imm Gran Pct Auto 0.3 % (0.0-0.4); Lymphocytes Absolute Auto 2.1 X10*3/uL (1.2-4.9); Lymphocytes Percent Auto 22.8 % (20-40); Mean Corpuscular HGB Conc 35.6 g/dl (31.0-35.0); Mean Corpuscular Hemoglobin 32.6 pg (27.0-33.0); Mean Corpuscular Volume 91.4 fL (80.0-98.0); Mean Platelet Volume 8.4 fL (9.4-12.3); Monocytes Absolute Auto 1.2 X10*3/uL (0.1-1.2); Monocytes Percent Auto 12.9 % (2-11); Neutrophils Absolute Auto 5.7 x10*3/uL (2.0-8.3); Neutrophils Percent Auto 60.7 % (45-73); Platelet Count 328 X10*3/uL (160-400); Red Cell Distribution Width 12.1 % (11.0-16.0); White Blood Count 9.4 X10*3/uL (4.8-10.8)
--- NOTE | 2023-08-05 08:28 | PC.NURSE ---
IV access established in left hand. Labs drawn and sent for analysis. Awaiting results. Patient requested that I call her son, Yeison Heart, to notify him that she is in the ER for evaluation. Called and spoke with Yeison per request. Yeison is leaving and en route to [facility] ER.
[2023-08-05 08:42] LABS: Alanine Aminotransferase 17 U/L (0-31); Albumin Level 3.5 g/dL (3.5-5.0); Alkaline Phosphatase 83 U/L (39-117); Anion Gap 13 (12-20); Aspartate Amino Transferase 32 U/L (5-31); Bilirubin Direct 0.2 mg/dL (0.0-0.5); Bilirubin Total 0.5 mg/dL (0.0-1.0); Blood Urea Nitrogen 7 mg/dL (9-16); Calcium 8.8 mg/dL (8.4-10.2); Carbon Dioxide 23 mmol/L (22-29); Chloride 95 mmol/L (96-108); Creatinine Clr Calc Pharmacy 50.2; Estimated Glomerular Filt Rate > 60; Glucose Random 84 mg/dL (60-115); Lipase 24 U/L (8-78); Potassium 4.2 mmol/L (3.3-5.1); Sodium 127 mmol/L (135-145); Total Protein 7.3 g/dL (6.5-8.0)
[2023-08-05] MEDS: 0.9 % Sodium Chloride 1,000 ML 999 ML IV (08:45)
[2023-08-05 08:50] LABS: Troponin-I High Sensitivity < 2.7 ng/L (<3.5-17.0)
[2023-08-05] MEDS: Acetaminophen 325 MG TABLET PO (09:14)
[2023-08-05 10:21] LABS: Appearance Urine Clear; Color Urine Yellow; Glucose Urine UA Negative (Negative); Leukocyte Esterase Urine Negative (Negative); Nitrite Urine Negative (Negative); PH 6.5 (5.0-9.0); Specific Gravity - Urine <= 1.005 (1.005-1.025); Urine Blood Negative (Negative); Urine Ketones Negative (Negative); Urine Protein Negative (Neg-Trace)
[2023-08-05 11:58] LABS: Anion Gap 15 (12-20); Blood Urea Nitrogen 6 mg/dL (9-16); Calcium 8.6 mg/dL (8.4-10.2); Carbon Dioxide 22 mmol/L (22-29); Chloride 98 mmol/L (96-108); Creatinine Clr Calc Pharmacy 53.1; Estimated Glomerular Filt Rate > 60; Glucose Random 83 mg/dL (60-115); Potassium 3.7 mmol/L (3.3-5.1); Sodium 131 mmol/L (135-145)
== END 2023-08-05 12:18 | disposition home or self-care (01) ==
PROVIDERS: Emergency Provider Emergency Medicine
DX: M48.54XA Collapsed vertebra, not elsewhere classified, thoracic region, initial encounter for fracture (principal); R10.2 Pelvic and perineal pain; R19.7 Diarrhea, unspecified; M54.50 Low back pain, unspecified; Z79.899 Other long term (current) drug therapy
CPT/HCPCS: 36415; 74176; 80048; 80076; 81003; 83690; 84484; 85025; 96360; 96361; 99283; 99284

== ENCOUNTER 2023-08-14 00:16 | Emergency (ER) | payer MEDICARE, OTHER, SELFPAY ==
[2023-08-14 00:22] VITALS: BP 130/81; PULSE 82; O2SAT 98; BMI 24.6
[2023-08-14 00:24] VITALS: BP 135/68; PULSE 79; RESP 18; TEMP 36.4; O2SAT 97
--- NOTE | 2023-08-14 00:52 | ED.EPISTAXIS ---
History of Present Illness General Chief Complaint: Epistaxis Stated Complaint: EPISTAXIS Time Seen by Provider: 08/14/23 00:45 Source: patient and EMS Mode of arrival: EMS Limitations: no limitations History of Present Illness HPI Narrative: 82-year-old female came in from [facility] by EMS for evaluation of left nostril bleeding patient declines any trauma to the nose, patient also declines aching anticoagulation, bleeding started 1 hour ago that started to subside and improve, patient declined dizziness or lightheadedness, no CP or SOB. Related Data Home Medications Medication Instructions Recorded Confirmed acetaminophen 500 mg tablet 500 mg PO Q6H PRN Pain 03/05/23 03/05/23 Previous Rx's Medication Instructions Recorded amlodipine 2.5 mg tablet 2.5 mg PO DAILY #30 tabs 03/06/23 cefuroxime axetil 500 mg tablet 500 mg PO BID #8 tabs 03/06/23 cefuroxime axetil 250 mg tablet 250 mg PO BID 7 days #14 tabs 05/15/23 docusate sodium 100 mg capsule 100 mg PO BID #20 caps 07/30/23 (Colace) polyethylene glycol 3350 17 17 g PO BID PRN constipation #238 07/30/23 gram/dose oral powder (Miralax) grams sennosides 8.6 mg tablet (senna) 8.6 mg PO BEDTIME #14 tabs 07/30/23 cephalexin 500 mg capsule 500 mg PO BID 5 days #10 caps 08/14/23 Allergies Allergy/AdvReac Type Severity Reaction Status Date / Time Influenza Virus Vaccines Allergy Unknown Verified 08/05/23 07:32 Review of Systems Review of Systems: All other systems are reviewed and are negative Constitutional: Reports as per HPI and Reports no additional constitutional complaints Eyes: Reports as per HPI and Reports no additional eye complaints Reports system reviewed and no additional complaints, except as documented Cardiovascular: Reports as per HPI and Reports no additional cardiovascular complaints Respiratory: Reports as per HPI and Reports no additional respiratory complaints Gastrointestinal: Reports as per HPI and Reports no additional gastrointestinal complaints Genitourinary: Reports no additional female genitourinary complaints Musculoskeletal: Reports no additional musculoskeletal complaints Skin/Breast: Reports system reviewed and no additional complaints, except as docu Psychiatric: Reports no additional psychiatric complaints Endocrine: Reports no additional endocrine complaints Hematologic/Lymphatic: Reports no additional hematologic/lymphatic complaints Allergic/Immunologic: Reports no additional allergic/immunologic complaints Reports system reviewed and no additional complaints, except as documented and Reports Abnormal speech present [facility] Past Medical History Medical History Alcohol abuse Social History Social History Household Members: Other Household Members Other:: assisted living. Housing: Assisted Living Facility Do you presently have visiting nurse or other home services: No Alcohol intake: current Alcohol intake frequency: 3 or more drinks per day Alcohol type: beer Patient Tobacco Use Status: Current someday Tobacco user Tobacco use type: Cigarette Cigarettes Per Day: 1 Advance Directives: No Advance Directives Information Provided: Yes service: No Physical Exam Vital Signs: Vital Signs: Last Vital Signs Temp 97.5 F 08/14/23 00:24 Pulse 79 08/14/23 00:24 Resp 18 08/14/23 03:36 BP 135/68 08/14/23 00:24 Pulse Ox 97 08/14/23 00:24 O2 Del Method Room Air 08/14/23 00:24 BMI result Body Mass Index 24.6 Vital signs have been reviewed and appear to be correct. Blood pressure elevated. Heart rate normal. Respiratory rate normal. Temperature normal. Oxygen saturation normal. Appearance: Alert. Oriented X3. No acute distress. Head: Normal external exam. Normocephalic. Atraumatic. No Zendejas signs noted. No raccoon eyes noted Eyes: PERRLA. EOMI. Conjunctiva and sclera normal. Eyelids normal. ENT: Left nostril slow bleed site of bleeding can not be determined, external pressure was applied to the patient nose with good control of the bleeding. Neck: Normal inspection. Neck supple. FROM. No adenopathy. Thyroid Normal. No meningeal signs. No neck mass noted. CVS: Normal heart rate and rhythm. Heart sound normal. No murmurs noted. Pulses normal throughout. Respiratory: No respiratory distress. Painless inspiration. Breath sounds normal. No wheezes/rales/rhonchi noted. Chest nontender. No accessory muscle usage noted or decreased air movement noted. Abdomen: Soft and nontender. Bowel sounds normal in all 4 quadrants. No distention noted. No organomegaly noted. No visible injury noted. Back: No CVA tenderness. Full range of motion noted. Skin: Skin warm and dry. Normal skin color. Normal skin turgor. No rashes/lesions/lacerations noted. Extremities: No lower extremity edema. Extremities exhibit normal range of motion. Extremities nontender. Neuro: Oriented X 3. Cranial nerve exam: II-XII are grossly intact No motor deficit. No sensory deficit. Reflexes normal. Course Reevaluation(s) Reevaluation #1: Left nostril bleed, not on AC, slight H&H drop from baseline, patient is asymptomatic, required anterior packing to the left nostril to control the epistaxis, patient currently not bleeding, will discharge on Keflex. Patient was instructed to return in 2 days for packing removal. Time: 06:00 Reevaluation #2: Repeat H&H is lower, no active bleeding for the past 6 hours, no chest pain, no dizziness, no lightheadedness patient is completely asymptomatic. Anterior packing is in place patient instructed to come back in 2 days for removal. Time: 07:24 Medications Administered Discontinued Medications Generic Name Dose Route Start Last Admin Trade Name Freq PRN Reason Stop Dose Admin Acetaminophen 650 mg 08/14/23 02:49 08/14/23 02:54 Acetaminophen 325 Mg Tablet PO 08/14/23 02:50 650 mg ONCE ONE Administration Cephalexin HCl 500 mg 08/14/23 04:46 08/14/23 04:53 Cephalexin 500 Mg Capsule PO 08/14/23 04:47 500 mg ONCE ONE Administration Medical Decision Making Differential Diagnosis Differential Diagnoses: The differential diagnosis associated with the presentation includes (Coagulopathy, severe anemia, trauma to the nose.) Admission/Observation Consideration of admission/observation: Escalation of care including admission/observation considered Lab Data MDM Lab Attestation statement: I reviewed the patient's lab results. 08/14/23 05:18 Labs: Lab Results 08/14/23 08/14/23 Range/Units 01:22 05:18 WBC 10.6 12.8 H (4.8-10.8) X10*3/uL RBC 3.63 L 3.37 L (4.20-5.50) X10*6/uL Hgb 11.8 L 10.9 L (12.0-16.0) g/dl Hct 33.6 L 31.6 L (37.0-47.0) % MCV 92.6 93.8 (80.0-98.0) fL MCH 32.5 32.3 (27.0-33.0) pg MCHC 35.1 H 34.5 (31.0-35.0) g/dl RDW 12.3 12.5 (11.0-16.0) % Plt Count 400 396 (160-400) X10*3/uL MPV 8.4 L 8.4 L (9.4-12.3) fL Immature Gran % (Auto) 0.5 H 0.4 (0.0-0.4) % Neut % (Auto) 51.2 72.2 (45-73) % Lymph % (Auto) 27.9 15.1 L (20-40) % [place] % (Auto) 15.3 H 10.6 (2-11) % Eos % (Auto) 4.8 H 1.4 (0-4) % Baso % (Auto) 0.3 0.3 (0-2) % Lymph # (Auto) 2.9 1.9 (1.2-4.9) X10*3/uL [place] # (Auto) 1.6 H 1.4 H (0.1-1.2) X10*3/uL Eos # (Auto) 0.5 H 0.2 (0.0-0.4) X10*3/uL Baso # (Auto) 0.0 0.0 (0.0-0.2) X10*3/uL Abs Immat Gran (auto) 0.05 H 0.05 H (0.00-0.03) X10*3/uL Absolute Neuts (auto) 5.4 9.3 H (2.0-8.3) x10*3/uL Absolute Nucleated RBC 0.000 0.000 (0.0-0.012) X10*3/uL Nucleated RBC % (auto) 0.0 0.0 (0.0-0.2) /100WBC Smear Tech's Comments VERIFIED PT 12.6 (11.1-13.3) SEC INR 1.0 (0.9-1.1) APTT 30.4 (26.0-36.8) SEC Procedures Epistaxis Control Time Out Performed: Yes Nostril: Yes left Direct inspection: Yes unable to visualize Clots removed by: Yes blowing nose Epistaxis treatment: Yes inflatable pack Results of treatment: Yes bleeding controlled Complications: Yes none Critical Care Time Critical Care Time Critical Care Time: Yes Total Critical Care Time: 60 Attestation: I spent 60 minutes providing critical care service to the patient, this including time spent at the bedside to evaluate the patient, reassess the patient, monitoring vital signs, review labs, counseling the patient/family, disposition the patient. Discharge Plan Discharge Clinical Impression: Epistaxis Patient Disposition: Home, Self-Care Instructions: Nosebleed (ED) Additional Instructions: Return to the emergency department on Sunday (tomorrow) to remove the nasal packing. Need to take antibiotic as discussed.. Prescriptions: New cephalexin 500 mg capsule 500 mg PO BID 5 Days Qty: 10 0RF No Action acetaminophen 500 mg Tablet 500 mg PO Q6H PRN (Reason: Pain) amlodipine 2.5 mg tablet 2.5 mg PO DAILY Qty: 30 0RF cefuroxime axetil 500 mg tablet 500 mg PO BID Qty: 8 0RF cefuroxime axetil 250 mg tablet 250 mg PO BID 7 Days Qty: 14 0RF sennosides [senna] 8.6 mg tablet 8.6 mg PO BEDTIME Qty: 14 0RF docusate sodium [Colace] 100 mg capsule 100 mg PO BID Qty: 20 0RF polyethylene glycol 3350 [Miralax] 17 gram/dose powder 17 g PO BID PRN (Reason: constipation) Qty: 238 0RF
[2023-08-14 01:30] LABS: Basophils Percent Auto 0.3 % (0-2); Eosinophils Absolute Auto 0.5 X10*3/uL (0.0-0.4); Eosinophils Percent Auto 4.8 % (0-4); Hematocrit 33.6 % (37.0-47.0); Hemoglobin 11.8 g/dl (12.0-16.0); Imm Gran Abs Auto 0.05 X10*3/uL (0.00-0.03); Imm Gran Pct Auto 0.5 % (0.0-0.4); Lymphocytes Absolute Auto 2.9 X10*3/uL (1.2-4.9); Lymphocytes Percent Auto 27.9 % (20-40); MANUAL DIFF FLAG SCAN; Mean Corpuscular HGB Conc 35.1 g/dl (31.0-35.0); Mean Corpuscular Hemoglobin 32.5 pg (27.0-33.0); Mean Corpuscular Volume 92.6 fL (80.0-98.0); Mean Platelet Volume 8.4 fL (9.4-12.3); Monocytes Absolute Auto 1.6 X10*3/uL (0.1-1.2); Monocytes Percent Auto 15.3 % (2-11); Neutrophils Absolute Auto 5.4 x10*3/uL (2.0-8.3); Neutrophils Percent Auto 51.2 % (45-73); Platelet Count 400 X10*3/uL (160-400); Red Blood Count 3.63 X10*6/uL (4.20-5.50); Red Cell Distribution Width 12.3 % (11.0-16.0); SCAN SMEAR FLAG 1; White Blood Count 10.6 X10*3/uL (4.8-10.8)
[2023-08-14 01:35] LABS: Prothrombin Time 12.6 SEC (11.1-13.3)
[2023-08-14 01:38] LABS: Partial Thromboplastin Time 30.4 SEC (26.0-36.8)
[2023-08-14 01:50] LABS: SLIDE REVIEW VERIFIED
[2023-08-14] MEDS: Acetaminophen 325 MG TABLET 650 MG PO (02:54)
[2023-08-14 03:36] VITALS: RESP 18
[2023-08-14] MEDS: cephALEXin 500 MG CAPSULE PO (04:53)
[2023-08-14 05:22] LABS: Basophils Percent Auto 0.3 % (0-2); Eosinophils Absolute Auto 0.2 X10*3/uL (0.0-0.4); Eosinophils Percent Auto 1.4 % (0-4); Hematocrit 31.6 % (37.0-47.0); Hemoglobin 10.9 g/dl (12.0-16.0); Imm Gran Abs Auto 0.05 X10*3/uL (0.00-0.03); Imm Gran Pct Auto 0.4 % (0.0-0.4); Lymphocytes Absolute Auto 1.9 X10*3/uL (1.2-4.9); Lymphocytes Percent Auto 15.1 % (20-40); MANUAL DIFF FLAG NO; Mean Corpuscular HGB Conc 34.5 g/dl (31.0-35.0); Mean Corpuscular Hemoglobin 32.3 pg (27.0-33.0); Mean Corpuscular Volume 93.8 fL (80.0-98.0); Mean Platelet Volume 8.4 fL (9.4-12.3); Monocytes Absolute Auto 1.4 X10*3/uL (0.1-1.2); Monocytes Percent Auto 10.6 % (2-11); Neutrophils Absolute Auto 9.3 x10*3/uL (2.0-8.3); Neutrophils Percent Auto 72.2 % (45-73); Platelet Count 396 X10*3/uL (160-400); Red Blood Count 3.37 X10*6/uL (4.20-5.50); Red Cell Distribution Width 12.5 % (11.0-16.0); White Blood Count 12.8 X10*3/uL (4.8-10.8)
== END 2023-08-14 09:03 | disposition home or self-care (01) ==
PROVIDERS: Emergency Provider Emergency Medicine
DX: R04.0 Epistaxis (principal); F17.200 Nicotine dependence, unspecified, uncomplicated; Z79.899 Other long term (current) drug therapy
CPT/HCPCS: 30901; 36415; 85025; 85610; 85730; 99283; 99284

== ENCOUNTER 2023-08-15 07:49 | Emergency (ER) | payer MEDICARE, OTHER, SELFPAY ==
[2023-08-15 07:54] VITALS: BP 114/62; PULSE 92; RESP 18; TEMP 37.2; O2SAT 99; BMI 27.5
--- NOTE | 2023-08-15 09:46 | ED.RECABL ---
HPI - Recheck/Abnormal Lab/Rx General Chief Complaint: Recheck/Abnormal Lab/Rx Stated Complaint: Removal of nasal instrument Time Seen by Provider: 08/15/23 09:38 Source: patient and family Mode of arrival: ambulatory Limitations: no limitations History of Present Illness HPI narrative: 82-year-old female presents requesting that her left nasal packing, out, patient had it put in yesterday. She was unsure of when had to come out so she returned today to get it removed. No complaints at this time. Has not seen ENT. Denies fevers, chills, further bleeding, headache, vision changes, dizziness, weakness, chest pain shortness breath Related Data Home Medications Medication Instructions Recorded Confirmed acetaminophen 500 mg tablet 500 mg PO Q6H PRN Pain 03/05/23 03/05/23 Previous Rx's Medication Instructions Recorded amlodipine 2.5 mg tablet 2.5 mg PO DAILY #30 tabs 03/06/23 cefuroxime axetil 500 mg tablet 500 mg PO BID #8 tabs 03/06/23 cefuroxime axetil 250 mg tablet 250 mg PO BID 7 days #14 tabs 05/15/23 docusate sodium 100 mg capsule 100 mg PO BID #20 caps 07/30/23 (Colace) polyethylene glycol 3350 17 17 g PO BID PRN constipation #238 07/30/23 gram/dose oral powder (Miralax) grams sennosides 8.6 mg tablet (senna) 8.6 mg PO BEDTIME #14 tabs 07/30/23 cephalexin 500 mg capsule 500 mg PO BID 5 days #10 caps 08/14/23 Allergies Allergy/AdvReac Type Severity Reaction Status Date / Time Influenza Virus Vaccines Allergy Unknown Verified 08/15/23 07:56 Review of Systems Review of Systems: Yes all other systems are reviewed and are negative PMFSH Past Medical History Attestation statement: The following information was validated with the patient. Source: old records reviewed and nursing notes reviewed Medical History Alcohol abuse Social History Social History Household Members: Other Household Members Other:: assisted living. Housing: Assisted Living Facility Do you presently have visiting nurse or other home services: No Alcohol intake: current Alcohol intake frequency: 3 or more drinks per day Alcohol type: beer Patient Tobacco Use Status: Current someday Tobacco user Tobacco use type: Cigarette Cigarettes Per Day: 1 Advance Directives: No Advance Directives Information Provided: No service: No Physical Exam Vital Signs: Vital Signs: Last Vital Signs Temp 98.9 F 08/15/23 07:54 Pulse 92 08/15/23 07:54 Resp 18 08/15/23 07:54 BP 114/62 08/15/23 07:54 Pulse Ox 99 08/15/23 07:54 O2 Del Method Room Air 08/15/23 07:54 BMI result Body Mass Index 27.5 Vital signs stable Appearance: Alert.? Oriented X3.? No acute distress.? Head: Normocephalic, atraumatic, no step-offs or deformities Eyes: Pupils equal, round and reactive to light.? ENT: + left nares with nasal packing, no signs of active bleeding. Neck: Normal inspection.? Neck supple.? CVS: Normal heart rate and rhythm.? Pulses normal.? Respiratory: No respiratory distress.? Breath sounds normal.?Skin: Skin warm and dry.? Normal skin color.? Normal skin turgor.? Extremities:5/5 strength to bilateral upper and lower extremities Neuro: Oriented X 3.? No motor deficit.? No sensory deficit. Ambulatory with steady gait Medical Decision Making Medical Decision Making MDM Narrative: 82-year-old female presents requesting we take out nasal packing that was placed yesterday. Physical exam benign. Nasal packing to left nares. History and physical exam concerning for normal encounter with nasal packing to left nares. Has not been in long enough to remove. Recommend 3-5 days after date of placement. Patient is on antibiotics. Will give her follow-up with ears Nose and Throat. Differential Diagnosis Differential Diagnoses: The differential diagnosis associated with the presentation includes History and physical exam concerning for normal encounter with nasal packing to left nares. Admission/Observation Consideration of admission/observation: Escalation of care including admission/observation considered Unlikely External Record Review External record reviewed: Inpatient record, Office record, Outpatient record, Prior outpatient labs, Prior outpatient radiology, Primary care record and Outside ED record Chronic Conditions Patient?s care impacted by: Other (Alcohol abuse.) Discharge Plan Discharge Clinical Impression: Encounter for removal of nasal packing Patient Disposition: Home, Self-Care Additional Instructions: Take your medications as prescribed. If you were prescribed antibiotics today, it is important that you take your medication to their entirety, do not skip any doses, do not finish them early. Follow-up with your primary care provider this week. Return to the emergency department with new or worsening symptoms. Such as fevers, chills, chest pain, shortness of breath, nausea, vomiting, dizziness, headache, vision changes, lethargy In case of emergency call 911 Return in 3-5 days from when packing was placed. Or with any new or worsening symptoms Prescriptions: No Action acetaminophen 500 mg Tablet 500 mg PO Q6H PRN (Reason: Pain) amlodipine 2.5 mg tablet 2.5 mg PO DAILY Qty: 30 0RF cefuroxime axetil 500 mg tablet 500 mg PO BID Qty: 8 0RF cefuroxime axetil 250 mg tablet 250 mg PO BID 7 Days Qty: 14 0RF cephalexin 500 mg capsule 500 mg PO BID 5 Days Qty: 10 0RF sennosides [senna] 8.6 mg tablet 8.6 mg PO BEDTIME Qty: 14 0RF docusate sodium [Colace] 100 mg capsule 100 mg PO BID Qty: 20 0RF polyethylene glycol 3350 [Miralax] 17 gram/dose powder 17 g PO BID PRN (Reason: constipation) Qty: 238 0RF Referrals: Genaro Valadez [Physician] - 1 day
== END 2023-08-15 09:53 | disposition home or self-care (01) ==
PROVIDERS: Emergency Provider Emergency Medicine; PCP Physician Assistant
DX: Z48.00 Encounter for change or removal of nonsurgical wound dressing (principal)
CPT/HCPCS: 99281

== ENCOUNTER 2024-09-08 10:42 | Emergency (ER) | payer MEDICARE, OTHER, SELFPAY ==
[2024-09-08] VITALS (7 sets, daily range): BP systolic 131–183; BP diastolic 93–107; PULSE 75–97; RESP 16–22; TEMP 36.5–36.6; O2SAT 96–99; BMI 34.8
--- NOTE | ~2024-09-08 | XR_ITS ---
EXAMINATION: XR CHEST 2 VIEWS HISTORY: weakness COMPARISON: Comparison is made with the prior examination dated 05/15/2023. FINDINGS: PA and lateral views of the chest are submitted. The lungs are hyperinflated, consistent with COPD. There is patchy airspace opacity in the left lower lobe, compatible with pneumonia. The right lung is clear. There is no pleural effusion, pneumothorax, or pulmonary vascular congestion. The heart is normal in size. The aorta is tortuous. There is degenerative disc disease of the spine. XR/XR chest 2V IMPRESSION: COPD. Left lower lobe pneumonia. Follow-up is recommended to document resolution. Electronically signed by: Rich Dunn MD 09/08/2024 01:52 PM EDT
--- NOTE | 2024-09-08 10:45 | ECG_ITS ---
Test Reason : cp Blood Pressure : */* mmHG Vent. Rate : 91 BPM Atrial Rate : 91 BPM P-R Int : 160 ms QRS Dur : 78 ms QT Int : 360 ms P-R-T Axes : 68 40 33 degrees QTcB Int : 442 ms Sinus rhythm with Premature atrial complexes Nonspecific ST abnormality Abnormal ECG When compared with ECG of 15-May-2023 08:26, Premature atrial complexes are now Present Referred By: Generic ED Physician Electronically Signed By: AMRY HERRING
[2024-09-08 11:11] LABS: MANUAL DIFF FLAG NO
[2024-09-08 11:13] LABS: Basophils Absolute Auto 0.1 X10*3/uL (0.0-0.2); Eosinophils Absolute Auto 0.1 X10*3/uL (0.0-0.4); Eosinophils Percent Auto 1.2 % (0-4); Hematocrit 40.4 % (37.0-47.0); Hemoglobin 14.4 g/dl (12.0-16.0); Imm Gran Abs Auto 0.03 X10*3/uL (0.00-0.03); Imm Gran Pct Auto 0.3 % (0.0-0.4); Lymphocytes Absolute Auto 1.8 X10*3/uL (1.2-4.9); Lymphocytes Percent Auto 19.1 % (20-40); Mean Corpuscular HGB Conc 35.6 g/dl (31.0-35.0); Mean Corpuscular Hemoglobin 33.3 pg (27.0-33.0); Mean Corpuscular Volume 93.3 fL (80.0-98.0); Mean Platelet Volume 8.3 fL (9.4-12.3); Monocytes Absolute Auto 1.1 X10*3/uL (0.1-1.2); Monocytes Percent Auto 12.1 % (2-11); Neutrophils Absolute Auto 6.2 x10*3/uL (2.0-8.3); Neutrophils Percent Auto 66.3 % (45-73); Platelet Count 379 X10*3/uL (160-400); Red Blood Count 4.33 X10*6/uL (4.20-5.50); Red Cell Distribution Width 12.4 % (11.0-16.0); White Blood Count 9.4 X10*3/uL (4.8-10.8)
[2024-09-08 11:26] LABS: Alanine Aminotransferase 18 U/L (0-31); Alkaline Phosphatase 74 U/L (39-117); Anion Gap 13 (12-20); Aspartate Amino Transferase 30 U/L (5-31); Bilirubin Total 0.9 mg/dL (0.0-1.0); Blood Urea Nitrogen 7 mg/dL (9-16); Calcium 9.1 mg/dL (8.4-10.2); Carbon Dioxide 23 mmol/L (22-29); Chloride 96 mmol/L (96-108); Creatinine Clr Calc Pharmacy 66.4; Estimated Glomerular Filt Rate > 60; Glucose Random 104 mg/dL (60-115); Potassium 4.3 mmol/L (3.3-5.1); Sodium 128 mmol/L (135-145); Total Protein 7.7 g/dL (6.5-8.0)
[2024-09-08 11:45] LABS: Troponin-I High Sensitivity < 2.7 ng/L (<3.5-17.0)
--- NOTE | 2024-09-08 13:35 | ED_ITS ---
HPI - Chest Pain General Chief Complaint: Chest Pain Stated Complaint: Chest Pressure SOB Weakness Time Seen by Provider: 09/08/24 13:35 Source: patient Mode of arrival: ambulatory Limitations: no limitations History of Present Illness ED Provider: Ara Melvin PA-C HPI narrative: Patient is an 83 year old assigned female at with no reported medical history presenting to the emergency department today with feeling generally unwell, SOB, dizziness, and weakness. Patient states that over the last couple of days she has felt unwell with dizziness, weakness, and shortness of breath. Patient denies any lightheadedness, abdominal pain, nausea, vomiting, fever, chills, blurry vision, double vision, loss of vision, chest pain, back pain, night sweats, pain with urination, increased urinary frequency, increased urinary urgency, blood in her urine or stool, syncope or a near syncopal episode, recent trauma or falls, bowel incontinence, bladder incontinence, or any other complaints at this time. Relieving factors: nothing Exacerbating factors: nothing Related Data Home Medications ?Medication ?Instructions ?Recorded ?Confirmed acetaminophen 500 mg tablet 500 mg PO Q6H PRN Pain 03/05/23 03/05/23 Previous Rx's ?Medication ?Instructions ?Recorded amlodipine 2.5 mg tablet 2.5 mg PO DAILY #30 tabs 03/06/23 cefuroxime axetil 500 mg tablet 500 mg PO BID #8 tabs 03/06/23 cefuroxime axetil 250 mg tablet 250 mg PO BID 7 days #14 tabs 05/15/23 docusate sodium 100 mg capsule 100 mg PO BID #20 caps 07/30/23 (Colace) polyethylene glycol 3350 17 17 g PO BID PRN constipation #238 07/30/23 gram/dose oral powder (Miralax) grams sennosides 8.6 mg tablet (senna) 8.6 mg PO BEDTIME #14 tabs 07/30/23 cephalexin 500 mg capsule 500 mg PO BID 5 days #10 caps 08/14/23 amoxicillin 875 mg-potassium 1 tab PO BID 10 days #20 tabs 09/08/24 clavulanate 125 mg tablet doxycycline hyclate 100 mg tablet 100 mg PO BID 7 days #14 tabs 09/08/24 Allergies Allergy/AdvReac Type Severity Reaction Status Date / Time Influenza Virus Vaccines Allergy Unknown Verified 09/08/24 10:55 Review of Systems 2 Constitutional: Constitutional: Reports no additional constitutional complaints, Denies chills, Denies fever(s) and Denies night sweats Eyes: Eyes: Reports no additional eye complaints, Denies blurry vision, Denies change in vision, Denies diplopia, Denies eye discharge, Denies loss of vision and Denies eye pain ENT: Reports dizziness Cardiovascular: Cardiovascular: Reports no additional cardiovascular complaints, Denies chest pain, Denies lightheadedness, Denies Loss of Consciousness and Reports dyspnea Respiratory: Respiratory: Reports dyspnea Gastrointestinal: Gastrointestinal: Reports no additional gastrointestinal complaints, Denies abdominal pain, Denies melena, Denies hematochezia, Denies change in bowel habits and Denies change in stool character Genitourinary: Genitourinary: Denies hematuria, Denies urinary frequency, Denies dysuria, Denies urinary incontinence, Denies urinary hesitancy and Denies urinary urgency Musculoskeletal: Musculoskeletal: Reports no additional musculoskeletal complaints, Denies numbness and Denies tingling Neurologic: Reports dizziness, Denies loss of vision, Denies numbness and Denies tingling Psychiatric: Psychiatric: Reports no additional psychiatric complaints Endocrine: Endocrine: Reports no additional endocrine complaints Hematologic/Lymphatic: Hematologic/Lymphatic: Reports no additional hematologic/lymphatic complaints Allergic/Immunologic: Allergic/Immunologic: Reports no additional allergic/immunologic complaints [facility] Past Medical History Attestation statement: The following information was validated with the patient. Source: old records reviewed and nursing notes reviewed Medical History Alcohol abuse Social History Social History Household Members: Other Household Members Other:: assisted living. Housing: Assisted Living Facility Do you presently have visiting nurse or other home services: No Alcohol intake: current Alcohol intake frequency: 3 or more drinks per day Alcohol type: beer Patient Tobacco Use Status: Current someday Tobacco user Tobacco use type: Cigarette Cigarettes Per Day: 1 service: No Physical Exam 2 Vital Signs: Vital Signs: Last Vital Signs Temp 97.9 F 09/08/24 15:55 Pulse 97 09/08/24 15:55 Resp 20 09/08/24 15:55 BP 169/93 H 09/08/24 15:55 Pulse Ox 97 09/08/24 15:55 O2 Del Method Room Air 09/08/24 15:55 BMI result Body Mass Index 34.8 Const: General: cooperative, no acute distress, alert and awake Nutritional Appearance: well nourished Orientation/consciousness: patient oriented x3 Limitations: no limitations HEENT: Head: Yes normal to inspection and Yes atraumatic Ears: hearing grossly normal bilaterally and external ears normal General nose exam: Normal external nose present, no nasal discharge noted and no epistaxis Face and sinus: Yes normal facial exam, No abrasion and No laceration Mouth: Normal oral and palatal mucosa present, no drooling and no muffled voice Eyes: General: appearance normal, both eyes and all related structures P eriorbital: periorbital findings normal Eyelids: Yes eyelids normal C onjunctivae: conjunctivae normal Pupils: Equal, round and reactive pupils present EOM: EOMs intact bilaterally Neck: Neck: Yes normal visual inspection, Yes full ROM and Yes no lymphadenopathy Chest: Chest palpation & inspection: normal inspection of the chest Resp: Effort & Inspection: normal respiratory effort and able to speak in complete sentences GI: Inspection: Yes normal to inspection Neuro: General: patient oriented x3, moves all extremities and CN's II-XI intact bilaterally Cranial nerves: Yes Equal, round and reactive pupils present Cognition (Neuro): normal cognition Extrem: General: Yes normal to inspection, Yes full ROM and Yes capillary refill normal Psych: Appearance: grossly normal Mental Status: mental status grossly normal Affect: normal affect Attitude: cooperative Thought process: N ormal thought process present Thought content: Normal thought content present Insight: Good insight present (Psych) Medications Administered Discontinued Medications Generic Name Dose Route Start Last Admin Trade Name [place] PRN Reason Stop Dose Admin Albuterol/Ipratropium 3 ml 09/08/24 14:13 09/08/24 14:18 Albuterol/Iprat 2.5/0.5mg 3 Ml Ampul.Neb INHALE 09/08/24 14:14 3 ml ONCE ONE Administration Azithromycin 500 mg 09/08/24 13:58 09/08/24 14:23 Azithromycin 500 Mg Tablet PO 09/08/24 13:59 500 mg ONCE ONE Administration Ceftriaxone Sodium 1 gm 09/08/24 13:57 09/08/24 14:22 Ceftriaxone Sodium 1 Gm Vial IVPUSH 09/08/24 13:58 1 gm ONCE ONE Administration Sodium Chloride 1,000 mls @ 999 mls/hr 09/08/24 13:45 09/08/24 14:22 Ns IV 09/08/24 14:45 999 mls/hr .Q1H1M [facility] Administration Medical Decision Making Medical Decision Making [facility] Narrative: Patient is an 83 year old assigned female at with no reported medical history presenting to the emergency department today with feeling generally unwell, SOB, dizziness, and weakness. Patient's physical exam was unremarkable. Patient's blood work showed a decreased sodium of 128 which appears chronic for the patient. The remaining labs were otherwise unremarkable. Patient's urine showed no acute process. Patient's EKG was unremarkable. Patient's chest x-ray showed COPD with left lower lobe pneumonia. I explained my physical exam findings as well as all test results to the patient. I answered all questions asked by the patient. Patient received 1L of IV NS, PO azithromycin, and IV ceftriaxone. Patient declined to have a repeat CMP completed to confirm partial correction of her sodium level. I stressed the importance of the patient taking her medication as directed (either prescribed or as the over the counter packaging recommends). I stressed the importance of the patient following up with her primary care provider. I stressed the importance of the patient returning to the emergency department immediately if her symptoms were to worsen or if she were to develop any dizziness, shortness of breath, difficulty breathing, chest pain, blurry vision, loss of vision, nausea, vomiting, abdominal pain, fever, chills, back pain, or any other complaints. Patient verbalized agreement and understanding with this treatment plan and discharge. Differential Diagnosis Differential Diagnoses: The differential diagnosis associated with the presentation includes Hyponatremia Pneumonia Viral illness Admission/Observation Consideration of admission/observation: Escalation of care including admission/observation considered Patient would have been admitted to the hospital had her work up had any findings where hospital admission was appropriate and her clinical presentation warranted hospital admission. Lab Data [facility] Lab Attestation statement: I reviewed the patient's lab results. My interpretation of these results are in the MDM Rationale portion of this note. 09/08/24 11:09 09/08/24 11:09 Labs: Lab Results 09/08/24 09/08/24 09/08/24 Range/Units 11:09 13:47 14:50 WBC 9.4 (4.8-10.8) X10*3/uL RBC 4.33 D (4.20-5.50) X10*6/uL Hgb 14.4 D (12.0-16.0) g/dl Hct 40.4 D (37.0-47.0) % MCV 93.3 (80.0-98.0) fL MCH 33.3 H (27.0-33.0) pg MCHC 35.6 H (31.0-35.0) g/dl RDW 12.4 (11.0-16.0) % Plt Count 379 (160-400) X10*3/uL MPV 8.3 L (9.4-12.3) fL Immature Gran % (Auto) 0.3 (0.0-0.4) % Neut % (Auto) 66.3 (45-73) % Lymph % (Auto) 19.1 L (20-40) % Reynolds % (Auto) 12.1 H (2-11) % Eos % (Auto) 1.2 (0-4) % Baso % (Auto) 1.0 (0-2) % Lymph # (Auto) 1.8 (1.2-4.9) X10*3/uL Reynolds # (Auto) 1.1 (0.1-1.2) X10*3/uL Eos # (Auto) 0.1 (0.0-0.4) X10*3/uL Baso # (Auto) 0.1 (0.0-0.2) X10*3/uL Abs Immat Gran (auto) 0.03 (0.00-0.03) X10*3/uL Absolute Neuts (auto) 6.2 (2.0-8.3) x10*3/uL Absolute Nucleated RBC 0.000 (0.0-0.012) X10*3/uL Nucleated RBC % (auto) 0.0 (0.0-0.2) /100WBC Sodium 128 L (135-145) mmol/L Potassium 4.3 (3.3-5.1) mmol/L Chloride 96 (96-108) mmol/L Carbon Dioxide 23 (22-29) mmol/L Anion Gap 13 (12-20) BUN 7 L (9-16) mg/dL Creatinine 0.73 (0.5-1.4) mg/dL Estim Creat Clear Calc 66.4 Estimated GFR > 60 Random Glucose 104 (60-115) mg/dL Calcium 9.1 (8.4-10.2) mg/dL Total Bilirubin 0.9 (0.0-1.0) mg/dL AST 30 (5-31) U/L ALT 18 (0-31) U/L Alkaline Phosphatase 74 (39-117) U/L Troponin I High Sens < 2.7 (<3.5-17.0) ng/L B-Natriuretic Peptide 38 (<100) pg/mL Total Protein 7.7 (6.5-8.0) g/dL Albumin 4.0 (3.5-5.0) g/dL Urine Color Yellow Urine Appearance Clear Urine pH 7.0 (5.0-9.0) Ur Specific [place] <= 1.005 (1.005-1.025) Urine Protein Negative (Neg-Trace) mg/dL Urine Glucose (UA) Negative (Negative) mg/dL Urine Ketones 15 (Negative) mg/dL Urine Blood Negative (Negative) Urine Nitrite Negative (Negative) Ur Leukocyte Esterase Moderate (2+) H (Negative) Urine RBC 0-2 (0-2) /HPF Urine WBC 0-5 (0-5) /HPF Ur Squamous Epith Cells 0-2 (0-2) /HPF Urine Bacteria None Seen (None Seen) Hyaline Casts 0-2 (0-2) /LPF Influenza Type A (PCR) NEGATIVE (Negative) Influenza Type B (PCR) NEGATIVE (Negative) RSV RNA Qual (PCR) NEGATIVE (Negative) SARS-CoV-2 RNA (RT-PCR) NEGATIVE (Negative) Independent Interpretation I performed an independent interpretation of an: EKG and Plain X-Ray Interpretation: My interpretation is in agreement with the radiologist's impression of this imaging study. L EXAMINATION: XR CHEST 2 VIEWS HISTORY: weakness COMPARISON: Comparison is made with the prior examination dated 05/15/2023. FINDINGS: PA and lateral views of the chest are submitted. The lungs are hyperinflated, consistent with COPD. There is patchy airspace opacity in the left lower lobe, compatible with pneumonia. The right lung is clear. There is no pleural effusion, pneumothorax, or pulmonary vascular congestion. The heart is normal in size. The aorta is tortuous. There is degenerative disc disease of the spine. XR/XR chest 2V IMPRESSION: COPD. Left lower lobe pneumonia. Follow-up is recommended to document resolution. Electronically signed by: Rich Dunn MD 09/08/2024 01:52 PM EDT RP Dictated By: Rich Dunn MD Signed By: Electronically signed by Rich Dunn MD 09/08/24 1352 I independently interpreted this EKG and am in agreement with the below findings: Vent. Rate: 91 BPM Atrial Rate: 91 BPM P-R Int: 160 ms QRS Dur: 78 ms QT Int: 360 ms P-R-T Axes: 68 40 33 degrees QTcB Int: 442 ms Sinus rhythm with Premature atrial complexes When compared with ECG of 15-May-2023 08:26, Premature atrial complexes are now Present DD/ [id number] Radiology Impression Discussion of test interpretation with radiology: I have reviewed the radiologist's reading. Prescription Management I considered prescription management with: Antibiotic (patient prescribed antibiotics for PNA) Discharge Plan Discharge Clinical Impression: Pneumonia Patient Disposition: Home, Self-Care Instructions: Pneumonia (ED) Additional Instructions: Your x-ray showed evidence of pneumonia. Take your antibiotics as directed. Follow up with your primary care provider. Return to the emergency department immediately if your symptoms worsen or if you develop any numbness, tingling, dizziness, shortness of breath, difficulty breathing, chest pain, blurry vision, loss of vision, nausea, vomiting, abdominal pain, fever, chills, back pain, or any other complaints. Please see the information below about our Patient Portal. If you are not yet enrolled in the [facility] Patient Portal, you will receive an enrollment email invitation following your visit to any [facility] care setting. You may also self-enroll in the Patient Portal by visiting our website: [email or web address] The following information is required to access the Patient Portal: - Your [facility] Medical Record Number - Your personal home email address (must match what is in your electronic medical record, Registration staff can assist with this) - Name - Date of Capabilities of the Patient Portal: - Message some providers - View upcoming appointments - Access your health summary, medical history, and visit history - View current conditions and allergies - View procedure and lab results - View your medications, including guidelines, side effects, and precautions - Complete pre-appointment questionnaires requested by your provider - Ready summary reports of your office visits and procedures To access the Patient Portal Mobile Ronen, follow these directions: - Search [employer] in the Ronen Store or [email or web address] Store - Download the Ronen - Search for [facility] - Enter your login/password Prescriptions: New doxycycline hyclate 100 mg tablet 100 mg PO BID 7 Days Qty: 14 0RF amoxicillin-pot clavulanate 875-125 mg tablet 1 tab PO BID 10 Days Qty: 20 0RF No Action acetaminophen 500 mg Tablet 500 mg PO Q6H PRN (Reason: Pain) amlodipine 2.5 mg tablet 2.5 mg PO DAILY Qty: 30 0RF cefuroxime axetil 500 mg tablet 500 mg PO BID Qty: 8 0RF cefuroxime axetil 250 mg tablet 250 mg PO BID 7 Days Qty: 14 0RF cephalexin 500 mg capsule 500 mg PO BID 5 Days Qty: 10 0RF sennosides [senna] 8.6 mg tablet 8.6 mg PO BEDTIME Qty: 14 0RF docusate sodium [Colace] 100 mg capsule 100 mg PO BID Qty: 20 0RF polyethylene glycol 3350 [Miralax] 17 gram/dose powder 17 g PO BID PRN (Reason: constipation) Qty: 238 0RF Referrals: Rosa Maria Mora PA-C [Primary Care Provider] - Interventions: ED Discharge Assessment Last Done: 09/08/24 15:55 Discharge Date/Time: 09/08/24 15:56 Print Language: Persian
[2024-09-08 14:12] LABS: B Type Natriuretic Peptide 38 pg/mL (<100)
[2024-09-08] MEDS: Albuterol/Iprat 2.5/0.5MG 3 ML AMPUL.NEB INHALE (14:18)
[2024-09-08] MEDS: 0.9 % Sodium Chloride 1,000 ML 999 ML IV (14:22)
[2024-09-08] MEDS: cefTRIAXone sodium 1 GM VIAL IVPUSH (14:22)
[2024-09-08] MEDS: Azithromycin 500 MG TABLET PO (14:23)
[2024-09-08 14:37] LABS: Influenza A PCR NEGATIVE (Negative); Influenza B PCR NEGATIVE (Negative); Resp Syncy Virus RNA Qual PCR NEGATIVE (Negative); SARS COV2 PCR INHOUSE NEGATIVE (Negative)
[2024-09-08 14:56] LABS: Appearance Urine Clear; Color Urine Yellow; Glucose Urine UA Negative (Negative); Leukocyte Esterase Urine Moderate (2+) (Negative); Nitrite Urine Negative (Negative); Specific Gravity - Urine <= 1.005 (1.005-1.025); UMIC TRIGGER UACC YES; Urine Blood Negative (Negative); Urine Ketones 15 mg/dL (Negative); Urine Protein Negative (Neg-Trace)
[2024-09-08 15:07] LABS: Bacteria Urine None Seen (None Seen); Hyaline Casts Urine 0-2 /LPF (0-2); RBC Urine 0-2 /HPF (0-2); Squamous Epithelial Cell Urine 0-2 /HPF (0-2); UACC Culture Trigger YES; WBC Urine 0-5 /HPF (0-5)
--- NOTE | 2024-09-08 15:31 | PC.NURSE ---
Pt coming from home with reporting resolved sternal CP and SOB. Pt reporting she has since not had any pain since being in ED, pt has been having these intermit episodes for a couple of days. Pt has been able to ambulate steady on RA. Awaiting dispo at this time
== END 2024-09-08 15:56 | disposition home or self-care (01) ==
PROVIDERS: Physician Assistant Medical; Emergency Provider Emergency Medicine; PCP Physician Assistant
DX: J18.9 Pneumonia, unspecified organism (principal); R06.02 Shortness of breath; R94.31 Abnormal electrocardiogram [ECG] [EKG]; R07.89 Other chest pain; Z79.899 Other long term (current) drug therapy; Z03.818 Encounter for observation for suspected exposure to other biological agents ruled out
CPT/HCPCS: 0241U; 36415; 71046; 80053; 81001; 83880; 84484; 85025; 87086; 87088; 87186; 93005; 94640; 96374; 99284; 99285; J0696

== ENCOUNTER → 2024-09-08 10:45 | Outpatient (BNV) | payer MEDICARE, OTHER, SELFPAY | PROVIDERS: Emergency Provider Emergency Medicine; PCP Physician Assistant; Visit Provider Internal Medicine | DX: I49.1 Atrial premature depolarization (principal) | CPT/HCPCS: 93010 ==

== ENCOUNTER → 2024-09-08 13:34 | Outpatient (BNV) | payer MEDICARE, OTHER, SELFPAY | PROVIDERS: Emergency Provider Emergency Medicine; PCP Physician Assistant; Visit Provider Radiology Diagnostic Radiology | DX: J44.9 Chronic obstructive pulmonary disease, unspecified (principal); J18.1 Lobar pneumonia, unspecified organism | CPT/HCPCS: 71046 ==

== ENCOUNTER 2024-09-29 19:19 | Emergency (ER) | payer MEDICARE, OTHER, SELFPAY ==
--- NOTE | 2024-09-29 | ECG_ITS ---
Test Reason : DIZZY, WEAK Blood Pressure : */* mmHG Vent. Rate : 73 BPM Atrial Rate : 73 BPM P-R Int : 158 ms QRS Dur : 70 ms QT Int : 408 ms P-R-T Axes : 49 43 22 degrees QTcB Int : 449 ms Normal sinus rhythm Septal infarct , age undetermined Abnormal ECG When compared with ECG of 08-Sep-2024 10:46, Premature atrial complexes are no longer Present Referred By: Nely Abernathy Electronically Signed By: MARY HERRING
--- NOTE | ~2024-09-29 | XR_ITS ---
CLINICAL HISTORY: SOB 2 view chest x-ray Comparison: CR/SR - XR CHEST 2V - 09/08/24 13:44 EDT Findings: No consolidation or effusion. Heart size is normal. No acute fracture. IMPRESSION: 1. No acute findings. This document has been electronically signed by: Norris Lombardi MD on 09/29/2024 21:04:02
[2024-09-29 19:30] VITALS: BP 169/81; BP 181/92; PULSE 70; PULSE 77; RESP 20; TEMP 36.4; O2SAT 98; BMI 27.5
[2024-09-29 19:45] LABS: Appearance Urine Clear; Color Urine Yellow; Glucose Urine UA Negative (Negative); Leukocyte Esterase Urine Negative (Negative); Nitrite Urine Negative (Negative); Specific Gravity - Urine <= 1.005 (1.005-1.025); Urine Blood Negative (Negative); Urine Ketones Negative (Negative); Urine Protein Negative (Neg-Trace)
[2024-09-29 20:09] LABS: MANUAL DIFF FLAG NO
[2024-09-29 20:12] LABS: Basophils Absolute Auto 0.1 X10*3/uL (0.0-0.2); Eosinophils Absolute Auto 0.1 X10*3/uL (0.0-0.4); Eosinophils Percent Auto 1.4 % (0-4); Hematocrit 35.8 % (37.0-47.0); Hemoglobin 12.4 g/dl (12.0-16.0); Imm Gran Abs Auto 0.02 X10*3/uL (0.00-0.03); Imm Gran Pct Auto 0.2 % (0.0-0.4); Lymphocytes Absolute Auto 2.5 X10*3/uL (1.2-4.9); Lymphocytes Percent Auto 25.1 % (20-40); Mean Corpuscular HGB Conc 34.6 g/dl (31.0-35.0); Mean Corpuscular Hemoglobin 32.5 pg (27.0-33.0); Mean Platelet Volume 8.2 fL (9.4-12.3); Monocytes Percent Auto 9.8 % (2-11); Neutrophils Absolute Auto 6.1 x10*3/uL (2.0-8.3); Neutrophils Percent Auto 62.5 % (45-73); Platelet Count 407 X10*3/uL (160-400); Red Blood Count 3.81 X10*6/uL (4.20-5.50); Red Cell Distribution Width 12.4 % (11.0-16.0); White Blood Count 9.8 X10*3/uL (4.8-10.8)
[2024-09-29 20:20] LABS: Prothrombin Time 11.4 SEC (10.9-12.4)
[2024-09-29 20:23] LABS: Amphetamine Screen Urine Not Detected (Not Detect); Barbiturates, Urine Not Detected (Not Detect); Benzodiazepines Screen Urine Not Detected (Not Detect); Buprenorphine Scr Not Detected (Not Detect); Cannabinoid Screen Urine Not Detected (Not Detect); Cocaine Screen Urine Not Detected (Not Detect); Fentanyl, urine Not Detected (Not Detect); Methadone Screen, Urine Not Detected (Not Detect); Opiate Screen Urine Not Detected (Not Detect); Oxycodone Screen Urine Not Detected (Not Detect); Phencyclidine Screen Urine Not Detected (Not Detect)
[2024-09-29 20:29] LABS: Ethanol 96 mg/dL
[2024-09-29 20:33] LABS: Alanine Aminotransferase 19 U/L (0-31); Albumin Level 3.5 g/dL (3.5-5.0); Alkaline Phosphatase 110 U/L (39-117); Anion Gap 14 (12-20); Aspartate Amino Transferase 34 U/L (5-31); Bilirubin Total 0.3 mg/dL (0.0-1.0); Blood Urea Nitrogen 7 mg/dL (9-16); Calcium 8.5 mg/dL (8.4-10.2); Carbon Dioxide 22 mmol/L (22-29); Chloride 96 mmol/L (96-108); Creatinine Clr Calc Pharmacy 59.7; Estimated Glomerular Filt Rate > 60; Glucose Random 86 mg/dL (60-115); Lipase 28 U/L (8-78); Magnesium 1.8 mg/dL (1.6-2.6); Potassium 3.8 mmol/L (3.3-5.1); Sodium 128 mmol/L (135-145); Total Protein 6.7 g/dL (6.5-8.0)
--- NOTE | 2024-09-29 20:35 | ED.GENADULT ---
HPI - General Adult General Chief complaint: General Medical Stated complaint: general weakness, confused etoh Time Seen by Provider: 09/29/24 19:23 Source: patient Mode of arrival: ambulatory Limitations: no limitations History of Present Illness ED Provider: Nely Abernathy NP HPI narrative: Patient is an 84-year-old female who presents emergency department via EMS coming from [facility] [place]. She reports that staff there had called EMS as she had reporting feeling generally unwell, weak, and having some dizziness. By the time she arrived via EMS she denied any dizziness. There was initial report to nursing that she has been experiencing shortness of breath with exertion and back pain she however adamantly denies this to me. She repetitively is asks to go home at this time, she states that she feels well. Her weakness resolved. She does admit to having 2 beers this evening. She would like to call her son so that she can be brought back to [place] at this time. She denies headache, vision changes, dizziness, chest pain, shortness of breath, nausea, vomiting, abdominal pain, numbness or tingling of her extremities Related Data Home Medications ?Medication ?Instructions ?Recorded ?Confirmed acetaminophen 500 mg tablet 500 mg PO Q6H PRN Pain 03/05/23 03/05/23 Previous Rx's ?Medication ?Instructions ?Recorded amlodipine 2.5 mg tablet 2.5 mg PO DAILY #30 tabs 03/06/23 cefuroxime axetil 500 mg tablet 500 mg PO BID #8 tabs 03/06/23 cefuroxime axetil 250 mg tablet 250 mg PO BID 7 days #14 tabs 05/15/23 docusate sodium 100 mg capsule 100 mg PO BID #20 caps 07/30/23 (Colace) polyethylene glycol 3350 17 17 g PO BID PRN constipation #238 07/30/23 gram/dose oral powder (Miralax) grams sennosides 8.6 mg tablet (senna) 8.6 mg PO BEDTIME #14 tabs 07/30/23 cephalexin 500 mg capsule 500 mg PO BID 5 days #10 caps 08/14/23 amoxicillin 875 mg-potassium 1 tab PO BID 10 days #20 tabs 09/08/24 clavulanate 125 mg tablet doxycycline hyclate 100 mg tablet 100 mg PO BID 7 days #14 tabs 09/08/24 Allergies Allergy/AdvReac Type Severity Reaction Status Date / Time Influenza Virus Vaccines Allergy Unknown Verified 09/29/24 19:34 Review of Systems Review of Systems: Yes all other systems are reviewed and are negative [facility]LY [facility] Past Medical History Attestation statement: The following information was validated with the patient. Source: old records reviewed Medical History Alcohol abuse Social History Social History Household Members: Other Household Members Other:: assisted living. Housing: Assisted Living Facility Do you presently have visiting nurse or other home services: No Alcohol intake: current Alcohol intake frequency: 0-2 drinks per day Alcohol type: beer Patient Tobacco Use Status: Current someday Tobacco user Tobacco use type: Cigarette Cigarettes Per Day: 1 Smoked in Last 30 Days: Yes Advance Directives: No Advance Directives Information Provided: Yes service: No Physical Exam ED Vital Signs: Vital Signs - 24 hr 09/29/24 19:30 Temperature 97.5 F Pulse Rate 77 Respiratory Rate 20 Blood Pressure 169/81 H Pulse Oximetry 98 Oxygen Delivery Method Room Air BMI result Body Mass Index 27.5 Appearance: Alert.?Oriented to person, place and time. No acute distress.?Normal affect. Eyes: Pupils equal, round and reactive to light.? ENT: Pharynx normal.?? Neck: Normal inspection.? Neck supple.?? CVS: Heart sounds normal. Normal heart rate and rhythm.? Pulses normal.?? Respiratory: No respiratory distress.? Lung sounds clear to auscultation bilaterally?? Abdomen: Soft and non-tender. Normoactive bowel sounds. No pulsatile mass.?? Skin: Skin warm and dry.? Normal skin color.? Extremities: No lower extremity edema.? No calf ttp? Neuro: No focal neurological deficit observed, CN II-XII intact, normal sensory observed, normal coordination observed. Level of consciousness: Appropriate for age. Motor strength: Proximal right upper extremity 5 /5, distal right upper extremity 5 /5, proximal left upper extremity 5 /5, distal left upper extremity 5 /5, right lower extremity 5 /5, left lower extremity 5 /5.? Speech: Normal, Gait: Normal, Rblzqo-oz-vvit test: Normal, Xufv-gq-[id number] test: Normal. Medical Decision Making Medical Decision Making MDM Narrative: Patient is an 84-year-old female presents emergency department via EMS for evaluation of generalized weakness, dizziness that has resolved on arrival, initial report of shortness a breath and back pain which she adamantly denies. She is alert and oriented x3. Has no focal neurological deficits at the time of my evaluation. Cerebellar function testing is normal. Low suspicion for ICH, CVA as etiology for vague weakness dizziness at this time. She adamantly request discharge home at this time. Her symptoms and very transient in nature. She does admit that symptoms may have been secondary to the 2 beers that she consumed this evening. She is ambulatory with a steady gait at this time. She is amenable to having serum labs and an EKG performed, she declines any further testing at this time. On evaluation, CBC is without leukocytosis, anemia, has a mild thrombocytosis. Chronic hyponatremia at 128 and no further electrolyte derangement. No JOHNY. Urinalysis without signs of infection. Toxicology is negative, ethyl alcohol level of 96. Viral serologies are negative. She was recently seen in the emergency department 09/08/2024 with a similar presentation, was found to have left lower lobe pneumonia, she was given a prescription for doxycycline and Augmentin, chest x-ray today is without acute pathology. No respiratory distress. She is quite adamant about being discharged at this time, I do not see indication to force her stay in the emergency department at this time. We discussed hydration for her hyponatremia she however declines. Differential Diagnosis Differential Diagnoses: The differential diagnosis associated with the presentation includes (See narrative above) Admission/Observation Consideration of admission/observation: Escalation of care including admission/observation considered Lab Data MDM Lab Attestation statement: I reviewed the patient's lab results. (See narrative above) 09/29/24 20:04 09/29/24 20:04 Labs: Lab Results 09/29/24 09/29/24 09/29/24 Range/Units 19:38 20:04 20:11 WBC 9.8 (4.8-10.8) X10*3/uL RBC 3.81 L (4.20-5.50) X10*6/uL Hgb 12.4 (12.0-16.0) g/dl Hct 35.8 L (37.0-47.0) % MCV 94.0 (80.0-98.0) fL MCH 32.5 (27.0-33.0) pg MCHC 34.6 (31.0-35.0) g/dl RDW 12.4 (11.0-16.0) % Plt Count 407 H (160-400) X10*3/uL MPV 8.2 L (9.4-12.3) fL Immature Gran % (Auto) 0.2 (0.0-0.4) % Neut % (Auto) 62.5 (45-73) % Lymph % (Auto) 25.1 (20-40) % [place] % (Auto) 9.8 (2-11) % Eos % (Auto) 1.4 (0-4) % Baso % (Auto) 1.0 (0-2) % Lymph # (Auto) 2.5 (1.2-4.9) X10*3/uL [place] # (Auto) 1.0 (0.1-1.2) X10*3/uL Eos # (Auto) 0.1 (0.0-0.4) X10*3/uL Baso # (Auto) 0.1 (0.0-0.2) X10*3/uL Abs Immat Gran (auto) 0.02 (0.00-0.03) X10*3/uL Absolute Neuts (auto) 6.1 (2.0-8.3) x10*3/uL Absolute Nucleated RBC 0.000 (0.0-0.012) X10*3/uL Nucleated RBC % (auto) 0.0 (0.0-0.2) /100WBC PT 11.4 (10.9-12.4) SEC INR 1.0 (0.9-1.1) Sodium 128 L (135-145) mmol/L Potassium 3.8 (3.3-5.1) mmol/L Chloride 96 (96-108) mmol/L Carbon Dioxide 22 (22-29) mmol/L Anion Gap 14 (12-20) BUN 7 L (9-16) mg/dL Creatinine 0.66 (0.5-1.4) mg/dL Estim Creat Clear Calc 59.7 Estimated GFR > 60 Random Glucose 86 (60-115) mg/dL Calcium 8.5 D (8.4-10.2) mg/dL Magnesium 1.8 (1.6-2.6) mg/dL Total Bilirubin 0.3 (0.0-1.0) mg/dL AST 34 H (5-31) U/L ALT 19 (0-31) U/L Alkaline Phosphatase 110 (39-117) U/L B-Natriuretic Peptide 40 (<100) pg/mL Total Protein 6.7 (6.5-8.0) g/dL Albumin 3.5 (3.5-5.0) g/dL Lipase 28 (8-78) U/L Urine Color Yellow Urine Appearance Clear Urine pH 6.0 (5.0-9.0) Ur Specific [place] <= 1.005 (1.005-1.025) Urine Protein Negative (Neg-Trace) mg/dL Urine Glucose (UA) Negative (Negative) mg/dL Urine Ketones Negative (Negative) mg/dL Urine Blood Negative (Negative) Urine Nitrite Negative (Negative) Ur Leukocyte Esterase Negative (Negative) Urine Opiates Screen Not Detected (Not Detect) Ur Buprenorphine Scrn Not Detected (Not Detect) ng/mL Ur Oxycodone Screen Not Detected (Not Detect) ng/mL Urine Methadone Screen Not Detected (Not Detect) ng/mL Urine Fentanyl Screen Not Detected (Not Detect) Ur Barbiturates Screen Not Detected (Not Detect) Ur Phencyclidine Scrn Not Detected (Not Detect) Ur Amphetamines Screen Not Detected (Not Detect) U Benzodiazepines Scrn Not Detected (Not Detect) Urine Cocaine Screen Not Detected (Not Detect) U Marijuana (THC) Screen Not Detected (Not Detect) Ethyl Alcohol 96 mg/dL Influenza Type A (PCR) NEGATIVE (Negative) Influenza Type B (PCR) NEGATIVE (Negative) RSV RNA Qual (PCR) NEGATIVE (Negative) SARS-CoV-2 RNA (RT-PCR) NEGATIVE (Negative) Independent Interpretation I performed an independent interpretation of an: EKG (Normal sinus rhythm, ventricular rate of 73, QTC 449, no ST-elevation) Radiology Impression Discussion of test interpretation with radiology: I have reviewed the radiologist's reading. Radiologist Impression: 2 view chest x-ray Comparison: CR/SR - XR CHEST 2V - 09/08/24 13:44 EDT Findings: No consolidation or effusion. Heart size is normal. No acute fracture. IMPRESSION: 1. No acute findings. Independent Historian Clinical information obtained from an independent historian. History obtained from or confirmed by: EMS External Record Review External record reviewed: Outpatient record Discharge Plan Discharge Clinical Impression: Generalized weakness Patient Disposition: Home, Self-Care Instructions: Weakness (ED) Additional Instructions: You came to the emergency department by ambulance for evaluation of generalized weakness and dizziness. Symptoms have resolved. You have been requesting discharge home. Workup today was overall reassuring, your sodium level is low which appears chronic in nature for you. Recommend that you refrain from alcohol consumption as this may be worsening the symptoms you are experiencing. Follow-up with your primary care doctor. Return to emergency department with any new or worsening symptoms or concerns. Prescriptions: No Action acetaminophen 500 mg Tablet 500 mg PO Q6H PRN (Reason: Pain) amlodipine 2.5 mg tablet 2.5 mg PO DAILY Qty: 30 0RF cefuroxime axetil 500 mg tablet 500 mg PO BID Qty: 8 0RF cefuroxime axetil 250 mg tablet 250 mg PO BID 7 Days Qty: 14 0RF cephalexin 500 mg capsule 500 mg PO BID 5 Days Qty: 10 0RF doxycycline hyclate 100 mg tablet 100 mg PO BID 7 Days Qty: 14 0RF amoxicillin-pot clavulanate 875-125 mg tablet 1 tab PO BID 10 Days Qty: 20 0RF sennosides [senna] 8.6 mg tablet 8.6 mg PO BEDTIME Qty: 14 0RF docusate sodium [Colace] 100 mg capsule 100 mg PO BID Qty: 20 0RF polyethylene glycol 3350 [Miralax] 17 gram/dose powder 17 g PO BID PRN (Reason: constipation) Qty: 238 0RF Referrals: Physician,Unknown J [Primary Care Provider] - Print Language: Tuvaluan
[2024-09-29 20:37] LABS: B Type Natriuretic Peptide 40 pg/mL (<100)
[2024-09-29 20:59] LABS: Influenza A PCR NEGATIVE (Negative); Influenza B PCR NEGATIVE (Negative); Resp Syncy Virus RNA Qual PCR NEGATIVE (Negative); SARS COV2 PCR INHOUSE NEGATIVE (Negative)
[2024-09-29 22:48] VITALS: BP 188/103; PULSE 92; RESP 20; TEMP 36.4; O2SAT 97
== END 2024-09-29 22:49 | disposition home or self-care (01) ==
PROVIDERS: Nurse Practitioner Family; Emergency Provider Emergency Medicine Emergency Medical Services
DX: R41.0 Disorientation, unspecified (principal); R53.1 Weakness; R94.31 Abnormal electrocardiogram [ECG] [EKG]; R06.02 Shortness of breath; F10.129 Alcohol abuse with intoxication, unspecified; Y90.4 Blood alcohol level of 80-99 mg/100 ml; Z03.818 Encounter for observation for suspected exposure to other biological agents ruled out; Z79.899 Other long term (current) drug therapy; Z51.81 Encounter for therapeutic drug level monitoring
CPT/HCPCS: 0241U; 36415; 71046; 80053; 80307; 81003; 83690; 83735; 83880; 85025; 85610; 93005; 99284

== ENCOUNTER → 2024-09-29 19:53 | Outpatient (BNV) | payer MEDICARE, OTHER, SELFPAY | PROVIDERS: Emergency Provider Emergency Medicine Emergency Medical Services; Visit Provider Internal Medicine | DX: R94.31 Abnormal electrocardiogram [ECG] [EKG] (principal); R42 Dizziness and giddiness; R53.1 Weakness | CPT/HCPCS: 93010 ==

== ENCOUNTER → 2024-09-29 20:15 | Outpatient (BNV) | payer MEDICARE, OTHER, SELFPAY | PROVIDERS: Emergency Provider Emergency Medicine Emergency Medical Services; Visit Provider Radiology Diagnostic Radiology | DX: R06.02 Shortness of breath (principal) | CPT/HCPCS: 71046 ==

== ENCOUNTER 2024-12-13 12:46 | Inpatient (IN) | payer MEDICARE, OTHER, SELFPAY ==
--- NOTE | ~2024-12-13 | XR_ITS ---
CLINICAL HISTORY: right sided thoracic pain 3 views thoracic spine Comparison: CR - XR CHEST 2V - 12/13/24 13:18 EDT Findings: Normal alignment. Redemonstration of mild chronic superior endplate compression deformities of T6 and T7 vertebral bodies and severe compression deformity of T12 vertebral body, unchanged in the interval. Mild dextrocurvature. Slightly exaggerated kyphosis at T12. Moderate multilevel spondylosis with disc space narrowing, and osteophytosis. IMPRESSION: Redemonstration of mild chronic superior endplate compression deformities of T6 and T7 vertebral bodies and severe compression deformity of T12 vertebral body, unchanged in the interval. Mild dextrocurvature. Slightly exaggerated kyphosis at T12. This document has been electronically signed by: Moy Key MD on 12/16/2024 19:35:40
--- NOTE | ~2024-12-13 | CT_ITS ---
CLINICAL HISTORY: ams CT head without contrast. COMPARISON: CT head dated 03/05/23 at 11:51 EDT FINDINGS: The visualized paranasal sinuses are clear. Fluid present within the right mastoid air cells, similar to prior imaging. No calvarial fracture. Advanced degenerative changes of the temporomandibular joints bilaterally. Atherosclerotic intracranial vasculature. No evidence for mass or mass effect. No intracranial hemorrhage or abnormal extra-axial fluid collection. No CT evidence of acute infarct. The ventricles are proportional with the degree of moderate global cerebral volume loss without evidence of hydrocephalus. Basilar cisterns are patent. There are periventricular areas of low attenuation compatible with mild white matter small vessel disease. Posterior fossa appears unremarkable. IMPRESSION: 1. No acute intracranial findings. This document has been electronically signed by: Juan Pino MD on 12/13/2024 14:48:06
--- NOTE | ~2024-12-13 | XR_ITS ---
CLINICAL HISTORY: AMS Two views of the chest. COMPARISON: XR chest dated 09/29/24 at 20:16 EDT XR chest dated 09/08/24 at 13:44 EDT FINDINGS: Normal heart size. Tortuous thoracic aorta. No consolidation. No definite pleural effusion. No pneumothorax. No acute fracture. [id number] spondylosis. Dextrocurvature of the lower thoracic spine. IMPRESSION: 1. No consolidation. This document has been electronically signed by: Juan Pino MD on 12/13/2024 13:56:10
[2024-12-13 12:54] VITALS: BP 177/88; PULSE 68; O2SAT 95
[2024-12-13 12:56] VITALS: BP 189/84; PULSE 66; RESP 15; TEMP 36.9; O2SAT 95; BMI 22.3
[2024-12-13 13:04] VITALS: BP 189/84; PULSE 63; RESP 15; TEMP 36.4; O2SAT 98
--- NOTE | 2024-12-13 13:04 | ED.GENADULT ---
HPI - General Adult General Chief complaint: Altered Mental Status Stated complaint: AMS,BACK PAIN Time Seen by Provider: 12/13/24 13:03 Source: patient, EMS, RN notes reviewed and old records reviewed Mode of arrival: EMS Limitations: altered mental status History of Present Illness ED Provider: Anabella HPI narrative: Patient is an 84-year-old female with reported history of alcohol abuse presenting to the ED from [facility] after patient was found in bed by staff stating that she was too weak to get out of bed. Staff found patient to be confused and incontient of urine with open alcohol containers nearby. Staff reported to EMS that patient drinks alcohol daily. Patient complains of right lower back pain but states she has had this pain forever. Denies any new complaints but is not oriented and states she does not know why she is in the emergency department. MD complaint: altered mental status Related Data Home Medications ?Medication ?Instructions ?Recorded ?Confirmed acetaminophen 500 mg tablet 500 mg PO Q6H PRN Pain 03/05/23 03/05/23 Previous Rx's ?Medication ?Instructions ?Recorded amlodipine 2.5 mg tablet 2.5 mg PO DAILY #30 tabs 03/06/23 cefuroxime axetil 500 mg tablet 500 mg PO BID #8 tabs 03/06/23 cefuroxime axetil 250 mg tablet 250 mg PO BID 7 days #14 tabs 05/15/23 docusate sodium 100 mg capsule 100 mg PO BID #20 caps 07/30/23 (Colace) polyethylene glycol 3350 17 17 g PO BID PRN constipation #238 07/30/23 gram/dose oral powder (Miralax) grams sennosides 8.6 mg tablet (senna) 8.6 mg PO BEDTIME #14 tabs 07/30/23 cephalexin 500 mg capsule 500 mg PO BID 5 days #10 caps 08/14/23 amoxicillin 875 mg-potassium 1 tab PO BID 10 days #20 tabs 09/08/24 clavulanate 125 mg tablet doxycycline hyclate 100 mg tablet 100 mg PO BID 7 days #14 tabs 09/08/24 Allergies Allergy/AdvReac Type Severity Reaction Status Date / Time Influenza Virus Vaccines Allergy Unknown Verified 12/13/24 13:03 Review of Systems Review of Systems: as per HPI Yes all other systems are reviewed and are negative Constitutional: Constitutional: Reports as per HPI Neurologic: Reports confusion Psychiatric: Psychiatric: Reports confusion [facility] Past Medical History Medical History Alcohol abuse Social History Social History Household Members: Other Household Members Other:: assisted living. Housing: Assisted Living Facility Do you presently have visiting nurse or other home services: No Alcohol intake: current Alcohol intake frequency: 0-2 drinks per day Alcohol type: beer Patient Tobacco Use Status: Current someday Tobacco user Tobacco use type: Cigarette Cigarettes Per Day: 1 Advance Directives: No Advance Directives Information Provided: No service: No Physical Exam ED Vital Signs: Vital Signs - 24 hr 12/13/24 12:56 12/13/24 13:04 Temperature 98.5 F 97.6 F Pulse Rate 66 63 Respiratory Rate 15 15 Blood Pressure 189/84 H 189/84 H Pulse Oximetry 95 98 Oxygen Delivery Method Room Air Room Air BMI result Body Mass Index 22.3 Vital signs have been reviewed and appear to be correct. Blood pressure elevated. Heart rate normal. Respiratory rate normal. Temperature normal. Oxygen saturation normal. Const General: cooperative, no acute distress, alert, awake and confusion Orientation/consciousness: oriented to person and confusion Limitations: no limitations and altered mental status HENMT Head: Yes normocephalic and Yes atraumatic Ears: external ears normal General nose exam: Normal external nose present Face and sinus: Yes face symmetric Mouth: oropharynx normal and moist mucous membranes Throat: Yes uvula midline Eyes Pupils: Equal, round and reactive pupils present Neck Neck: Yes normal visual inspection and Yes supple Resp Effort & Inspection: normal respiratory effort and able to speak in complete sentences Auscultation: clear to auscultation bilaterally Cardio Rate: regular rate Rhythm: regular rhythm Heart sounds: S1 normal heart sound present and S2 normal heart sound present GI Palpation (GI): Soft to palpation and nontender Auscultation: normoactive bowel sounds General: Yes no CVA tenderness Back/Spine/Pelvis Back: no CVA tenderness Skin General skin exam: elasticity normal and turgor normal Neuro General: oriented to person, moves all extremities, no focal motor deficits, CN's II-XI intact bilaterally and confusion Cranial nerves: Yes Equal, round and reactive pupils present Cognition (Neuro): normal cognition Extrem General: Yes full ROM, Yes no pedal edema and Yes no calf tenderness Psych Mental Status: mental status grossly normal Affect: normal affect Thought process: Normal thought process present NIH Stroke Scale Internal: Initial- Upon Arrival Time: 13:05 Level of Consciousness: Alert Level of Consciousness Questions: Answers both questions correctly Level of Consciousness Commands: Performs both tasks correctly Best Gaze: Normal Visual: No visual loss Facial Palsy: Normal Motor Arm (Right): No drift Motor Arm (Left): No drift Motor Leg (Right): No drift Motor Leg (Left): No drift Limb Ataxia: Absent Sensory: Normal Best Language: No aphasia Dysarthia: Normal Extinction and Inattention: No abnormality Score: 0 Course Reevaluation(s) Reevaluation #1: Notified by nursing that while attempting to straight cath patient for urine, urine was too thick to drain through the catheter. Given leukocytosis and AMS, will treat empirically for UTI until specimen can be obtained. Time: 15:37 Medications Administered Generic Name Dose Route Start Last Admin Trade Name Freq PRN Reason Stop Dose Admin Potassium Chloride 10 meq in 100 mls @ 100 mls/hr 12/13/24 15:45 12/13/24 16:14 Potassium Chloride/H20 IV 12/13/24 19:44 100 mls/hr Q1H BARBAAR Administration Discontinued Medications Generic Name Dose Route Start Last Admin Trade Name Freq PRN Reason Stop Dose Admin Ceftriaxone Sodium 1 gm 12/13/24 15:36 12/13/24 16:13 Ceftriaxone Sodium 1 Gm Vial IVPUSH 12/13/24 15:37 1 gm ONCE ONE Administration Medical Decision Making Medical Decision Making [facility] Narrative: Patient is an 84-year-old female with reported history of alcohol abuse presenting to the ED from [facility] after patient was found in bed by staff stating that she was too weak to get out of bed. On exam patient is awake, A+Ox1, VS WNL, afebrile, normal neurological exam without focal deficits, physical exam findings as above. Given reported symptoms and physical exam findings, initial differential includes but is not limited to UTI/pyelonephritis, sepsis, less likely CVA/ICH but will obtain CT head, alcohol or drug intoxication or withdrawal, electrolyte abnormality, pneumonia. Labs notable for hypokalemia, leukocytosis. IV potassium ordered. UA notable for 2+ leukocytes, positive nitrites, 3+ blood. IV ceftriaxone ordered. CT head notable for no evidence of ICH. CXR is without evidence of pneumonia. My interpretation is in agreement with the radiologist's interpretation. Case discussed with Dr. Bernabe who accepts admission to medicine. Differential Diagnosis Differential Diagnoses: The differential diagnosis associated with the presentation includes as per [facility] Admission/Observation Consideration of admission/observation: Escalation of care including admission/observation considered Consult Healthcare Provider Management of the patient was discussed with: Hospitalist Lab Data [facility] Lab Attestation statement: I reviewed the patient's lab results. as per [facility] 12/13/24 13:37 12/13/24 13:37 Labs: Lab Results 12/13/24 12/13/24 12/13/24 Range/Units 13:36 13:37 15:37 WBC 21.5 H (4.8-10.8) X10*3/uL RBC 4.33 (4.20-5.50) X10*6/uL Hgb 14.6 (12.0-16.0) g/dl Hct 39.4 (37.0-47.0) % MCV 91.0 (80.0-98.0) fL MCH 33.7 H (27.0-33.0) pg MCHC 37.1 H (31.0-35.0) g/dl RDW 12.1 (11.0-16.0) % Plt Count 453 H (160-400) X10*3/uL MPV 8.3 L (9.4-12.3) fL Immature Gran % (Auto) 0.5 H (0.0-0.4) % Neut % (Auto) 86.9 H (45-73) % Lymph % (Auto) 6.9 L (20-40) % [place] % (Auto) 5.3 (2-11) % Eos % (Auto) 0.1 (0-4) % Baso % (Auto) 0.3 (0-2) % Lymph # (Auto) 1.5 (1.2-4.9) X10*3/uL [place] # (Auto) 1.1 (0.1-1.2) X10*3/uL Eos # (Auto) 0.0 (0.0-0.4) X10*3/uL Baso # (Auto) 0.1 (0.0-0.2) X10*3/uL Abs Immat Gran (auto) 0.11 H (0.00-0.03) X10*3/uL Absolute Neuts (auto) 18.7 H (2.0-8.3) x10*3/uL Absolute Nucleated RBC 0.000 (0.0-0.012) X10*3/uL Nucleated RBC % (auto) 0.0 (0.0-0.2) /100WBC Sodium 127 L (135-145) mmol/L Potassium 2.9 L* D (3.3-5.1) mmol/L Chloride 90 L (96-108) mmol/L Carbon Dioxide 24 (22-29) mmol/L Anion Gap 16 (12-20) BUN 13 (9-16) mg/dL Creatinine 0.63 (0.5-1.4) mg/dL Estim Creat Clear Calc 55.3 Estimated GFR > 60 Random Glucose 97 (60-115) mg/dL Calcium 9.1 D (8.4-10.2) mg/dL Magnesium 1.7 (1.6-2.6) mg/dL Total Bilirubin 1.0 (0.0-1.0) mg/dL AST 35 H (5-31) U/L ALT 21 (0-31) U/L Alkaline Phosphatase 138 H (39-117) U/L Ammonia 22 (13-55) umol/L Troponin I High Sens 8.0 D (<3.5-17.0) ng/L Total Protein 7.3 (6.5-8.0) g/dL Albumin 3.9 (3.5-5.0) g/dL Urine Color Yellow Urine Appearance Turbid Urine pH 8.5 (5.0-9.0) Ur Specific [place] 1.020 (1.005-1.025) Urine Protein 300 (3+) H (Neg-Trace) mg/dL Urine Glucose (UA) Negative (Negative) mg/dL Urine Ketones 40 (Negative) mg/dL Urine Blood Large (3+) H (Negative) Urine Nitrite Positive H (Negative) Ur Leukocyte Esterase Moderate (2+) H (Negative) Urine RBC >20 H (0-2) /HPF Urine WBC >50 H (0-5) /HPF Ur Squamous Epith Cells 3-5 (0-2) /HPF Urine Bacteria 4+ (None Seen) Hyaline Casts 0-2 (0-2) /LPF Urine Opiates Screen Not Detected (Not Detect) Ur Buprenorphine Scrn Not Detected (Not Detect) ng/mL Ur Oxycodone Screen Not Detected (Not Detect) ng/mL Urine Methadone Screen Not Detected (Not Detect) ng/mL Urine Fentanyl Screen Not Detected (Not Detect) Ur Barbiturates Screen Not Detected (Not Detect) Ur Phencyclidine Scrn Not Detected (Not Detect) Ur Amphetamines Screen Not Detected (Not Detect) U Benzodiazepines Scrn Not Detected (Not Detect) Urine Cocaine Screen Not Detected (Not Detect) U Marijuana (THC) Screen Not Detected (Not Detect) Influenza Type A (PCR) NEGATIVE (Negative) Influenza Type B (PCR) NEGATIVE (Negative) RSV RNA Qual (PCR) NEGATIVE (Negative) SARS-CoV-2 RNA (RT-PCR) NEGATIVE (Negative) Independent Interpretation I performed an independent interpretation of an: Plain X-Ray and CT Scan Interpretation: CT head notable for no evidence of ICH. CXR is without evidence of pneumonia. Radiology Impression Discussion of test interpretation with radiology: I have reviewed the radiologist's reading. Radiologist Impression: Two views of the chest. COMPARISON: XR chest dated 09/29/24 at 20:16 EDT XR chest dated 09/08/24 at 13:44 EDT FINDINGS: Normal heart size. Tortuous thoracic aorta. No consolidation. No definite pleural effusion. No pneumothorax. No acute fracture. [id number] spondylosis. Dextrocurvature of the lower thoracic spine. IMPRESSION: 1. No consolidation. CT head without contrast. COMPARISON: CT head dated 03/05/23 at 11:51 EDT FINDINGS: The visualized paranasal sinuses are clear. Fluid present within the right mastoid air cells, similar to prior imaging. No calvarial fracture. Advanced degenerative changes of the temporomandibular joints bilaterally. Atherosclerotic intracranial vasculature. No evidence for mass or mass effect. No intracranial hemorrhage or abnormal extra-axial fluid collection. No CT evidence of acute infarct. The ventricles are proportional with the degree of moderate global cerebral volume loss without evidence of hydrocephalus. Basilar cisterns are patent. There are periventricular areas of low attenuation compatible with mild white matter small vessel disease. Posterior fossa appears unremarkable. IMPRESSION: 1. No acute intracranial findings. External Record Review External record reviewed: Inpatient record, Office record and Outpatient record Prescription Management I considered prescription management with: Antibiotic and Other Critical Care Time Critical Care Time Critical Care Time: Yes Total Critical Care Time: 42 Attestation: I have personally provided critical care time exclusive of time spent on separately billable procedures. Time includes review of lab data, radiology results, discussion with consultants, and monitoring for potential decompensation. Intervention performed as documented. Discharge Plan Discharge Print Language: Peruvian
--- NOTE | 2024-12-13 13:05 | ECG_ITS ---
Test Reason : ams Blood Pressure : */* mmHG Vent. Rate : 66 BPM Atrial Rate : 66 BPM P-R Int : 144 ms QRS Dur : 80 ms QT Int : 438 ms P-R-T Axes : 75 47 27 degrees QTcB Int : 459 ms Sinus rhythm with Premature atrial complexes Otherwise normal ECG When compared with ECG of 29-Sep-2024 19:53, Premature atrial complexes are now Present Criteria for Septal infarct are no longer Present Referred By: Itzel Kyle Electronically Signed By: CEZAR GIBSON MD
[2024-12-13 13:42] LABS: MANUAL DIFF FLAG NO
[2024-12-13 13:44] LABS: Hematocrit 39.4 % (37.0-47.0); Hemoglobin 14.6 g/dl (12.0-16.0); Imm Gran Abs Auto 0.11 X10*3/uL (0.00-0.03); Imm Gran Pct Auto 0.5 % (0.0-0.4); Lymphocytes Absolute Auto 1.5 X10*3/uL (1.2-4.9); Mean Corpuscular HGB Conc 37.1 g/dl (31.0-35.0); Mean Corpuscular Hemoglobin 33.7 pg (27.0-33.0); Mean Corpuscular Volume 91.0 fL (80.0-98.0); NRBC Abs Auto 0.000 X10*3/uL (0.0-0.012); NRBC Pct Auto 0.0 /100WBC (0.0-0.2); Platelet Count 453 X10*3/uL (160-400); Red Blood Count 4.33 X10*6/uL (4.20-5.50); White Blood Count 21.5 X10*3/uL (4.8-10.8)
[2024-12-13 13:50] LABS: Ammonia 22 umol/L (13-55)
[2024-12-13 14:05] LABS: Troponin-I High Sensitivity 8.0 ng/L (<3.5-17.0)
[2024-12-13 14:13] LABS: Alanine Aminotransferase 21 U/L (0-31); Albumin Level 3.9 g/dL (3.5-5.0); Alkaline Phosphatase 138 U/L (39-117); Anion Gap 16 (12-20); Aspartate Amino Transferase 35 U/L (5-31); Blood Urea Nitrogen 13 mg/dL (9-16); Calcium 9.1 mg/dL (8.4-10.2); Carbon Dioxide 24 mmol/L (22-29); Chloride 90 mmol/L (96-108); Creatinine Clr Calc Pharmacy 55.3; Estimated Glomerular Filt Rate > 60; Magnesium 1.7 mg/dL (1.6-2.6); Potassium 2.9 mmol/L (3.3-5.1); Sodium 127 mmol/L (135-145); Total Protein 7.3 g/dL (6.5-8.0)
[2024-12-13 14:37] LABS: Resp Syncy Virus RNA Qual PCR NEGATIVE (Negative); SARS COV2 PCR INHOUSE NEGATIVE (Negative)
[2024-12-13 16:02] LABS: Appearance Urine Turbid; Glucose Urine UA Negative (Negative); PH 8.5 (5.0-9.0); Specific Gravity - Urine 1.020 (1.005-1.025); UMIC TRIGGER UACC YES
[2024-12-13] MEDS: Potassium Chloride/H20 10 MEQ/100 ML PIGGYBACK 100 MEQ IV ×4 (16:14→19:35)
[2024-12-13 16:30] LABS: UACC Culture Trigger YES
[2024-12-13 16:31] LABS: Cannabinoid Screen Urine Not Detected (Not Detect)
[2024-12-13 16:55] VITALS: BP 161/114; PULSE 72; RESP 14; TEMP 36.2; O2SAT 97
--- NOTE | 2024-12-13 16:57 | PC.NURSE ---
Pt switched rooms closer to nurses station for increased confusion and trying to get out of bed
--- NOTE | 2024-12-13 16:59 | PC.NURSE ---
Pt recieved antibiotics before blood culture orders were in. Provider made aware and still wanted blood cultures drawn
--- NOTE | 2024-12-13 17:11 | PM.IMHP ---
History of Present Illness Date of Service: 12/13/24 Chief Complaint: Mental status changes 84-year-old female with reported history of alcohol abuse presenting to the ED from [facility] after patient was found in bed by staff stating that she was too weak to get out of bed. Staff found patient to be confused and incontient of urine with open alcohol containers nearby. Staff reported to EMS that patient drinks alcohol daily. Patient complains of right lower back pain but states she has had this pain forever. In emergency room head CTA negative as well as chest x-ray. Urine with active sediment. Review of Systems Review of Systems: Unable to obtain [facility] Medical History Alcohol abuse Social History Household Members: Other Household Members Other:: assisted living. Housing: Assisted Living Facility Do you presently have visiting nurse or other home services: No Alcohol intake: current Alcohol intake frequency: 0-2 drinks per day Alcohol type: beer Patient Tobacco Use Status: Current someday Tobacco user Tobacco use type: Cigarette Cigarettes Per Day: 1 Advance Directives: No Advance Directives Information Provided: No service: No Meds Allergies Allergy/AdvReac Type Severity Reaction Status Date / Time Influenza Virus Vaccines Allergy Unknown Verified 12/13/24 13:03 Active Medications: Current Medications Acetaminophen (Acetaminophen 325 Mg Tablet) 650 mg PO Q6H PRN PRN Reason: Pain, Mild 1-3,fever,headache Calcium Carbonate (Calcium Carbonate 750 Mg Tab.Chew) 750 mg PO Q4H PRN PRN Reason: Heartburn Ceftriaxone Sodium (Ceftriaxone Sodium 1 Gm Vial) 1 gm IVPUSH Q24H [facility] Enoxaparin Sodium (Enoxaparin Sodium 40 Mg/0.4 Ml Syringe) 40 mg SUBCUT Q24H [facility] Potassium Chloride (Potassium Chloride/H20) 10 meq in 100 mls @ 100 mls/hr IV Q1H [facility] Stop: 12/13/24 19:44 Last Admin: 12/13/24 16:14 Dose: 100 mls/hr Magnesium Hydroxide (Milk Of Magnesia 30 Ml Oral.Susp) 30 ml PO DAILY PRN PRN Reason: Constipation Melatonin (Melatonin 3 Mg Tablet) 6 mg PO BEDTIME PRN PRN Reason: Insomnia Sodium Chloride (0.9 % Sodium Chloride Flush 3 Ml Syringe) 3 ml IVFLUSH QSHIFT [facility] Home Medications ?Medication ?Instructions ?Recorded ?Confirmed ?Last Taken ?Type acetaminophen 500 mg tablet 500 mg PO Q6H PRN Pain 03/05/23 03/05/23 Unknown History sertraline 50 mg tablet 75 mg PO DAILY 12/13/24 Unknown History Physical Exam Vital Signs and Narrative: Vital Signs: Last Vital Signs Temp 97.1 F 12/13/24 16:55 Pulse 72 12/13/24 16:55 Resp 14 12/13/24 16:55 BP 161/114 H 12/13/24 16:55 Pulse Ox 97 12/13/24 16:55 O2 Del Method Room Air 12/13/24 16:55 BMI result Body Mass Index 22.3 Const: Other: Awake of only. No acute distress Resp: Other: Clear to auscultation bilaterally no rales rhonchi or wheezes Cardio: Other: No S4; positive S1-S2; no S3 murmurs rubs or gallops GI: Other: Soft nontender nondistended normoactive bowel sounds Neuro: Other: Awake alert oriented x1. Moves all extremities with equal power Extrem: Other: No edema bilaterally Results Labs 12/13/24 13:37 12/13/24 13:37 Labs: Laboratory Results - last 24 hr 12/13/24 12/13/24 12/13/24 13:36 13:37 15:37 MCV 91.0 MCH 33.7 H MCHC 37.1 H RDW 12.1 Plt Count 453 H MPV 8.3 L Immature Gran % (Auto) 0.5 H Neut % (Auto) 86.9 H Lymph % (Auto) 6.9 L [place] % (Auto) 5.3 Eos % (Auto) 0.1 Baso % (Auto) 0.3 Lymph # (Auto) 1.5 [place] # (Auto) 1.1 Eos # (Auto) 0.0 Baso # (Auto) 0.1 Abs Immat Gran (auto) 0.11 H Absolute Neuts (auto) 18.7 H Absolute Nucleated RBC 0.000 Nucleated RBC % (auto) 0.0 Anion Gap 16 Estim Creat Clear Calc 55.3 Estimated GFR > 60 Random Glucose 97 Lactic Acid Calcium 9.1 D Magnesium 1.7 Total Bilirubin 1.0 AST 35 H ALT 21 Alkaline Phosphatase 138 H Ammonia 22 Troponin I High Sens 8.0 D Total Protein 7.3 Albumin 3.9 Urine Color Yellow Urine Appearance Turbid Urine pH 8.5 Ur Specific [place] 1.020 Urine Protein 300 (3+) H Urine Glucose (UA) Negative Urine Ketones 40 Urine Blood Large (3+) H Urine Nitrite Positive H Ur Leukocyte Esterase Moderate (2+) H Urine RBC >20 H Urine WBC >50 H Ur Squamous Epith Cells 3-5 Urine Bacteria 4+ Hyaline Casts 0-2 Urine Opiates Screen Not Detected Ur Buprenorphine Scrn Not Detected Ur Oxycodone Screen Not Detected Urine Methadone Screen Not Detected Urine Fentanyl Screen Not Detected Ur Barbiturates Screen Not Detected Ur Phencyclidine Scrn Not Detected Ur Amphetamines Screen Not Detected U Benzodiazepines Scrn Not Detected Urine Cocaine Screen Not Detected U Marijuana (THC) Screen Not Detected Ethyl Alcohol < 10 Influenza Type A (PCR) NEGATIVE Influenza Type B (PCR) NEGATIVE RSV RNA Qual (PCR) NEGATIVE SARS-CoV-2 RNA (RT-PCR) NEGATIVE 12/13/24 16:48 MCV MCH MCHC RDW Plt Count MPV Immature Gran % (Auto) Neut % (Auto) Lymph % (Auto) [place] % (Auto) Eos % (Auto) Baso % (Auto) Lymph # (Auto) [place] # (Auto) Eos # (Auto) Baso # (Auto) Abs Immat Gran (auto) Absolute Neuts (auto) Absolute Nucleated RBC Nucleated RBC % (auto) Anion Gap Estim Creat Clear Calc Estimated GFR Random Glucose Lactic Acid 1.7 Calcium Magnesium Total Bilirubin AST ALT Alkaline Phosphatase Ammonia Troponin I High Sens Total Protein Albumin Urine Color Urine Appearance Urine pH Ur Specific [place] Urine Protein Urine Glucose (UA) Urine Ketones Urine Blood Urine Nitrite Ur Leukocyte Esterase Urine RBC Urine WBC Ur Squamous Epith Cells Urine Bacteria Hyaline Casts Urine Opiates Screen Ur Buprenorphine Scrn Ur Oxycodone Screen Urine Methadone Screen Urine Fentanyl Screen Ur Barbiturates Screen Ur Phencyclidine Scrn Ur Amphetamines Screen U Benzodiazepines Scrn Urine Cocaine Screen U Marijuana (THC) Screen Ethyl Alcohol Influenza Type A (PCR) Influenza Type B (PCR) RSV RNA Qual (PCR) SARS-CoV-2 RNA (RT-PCR) Assessment and Plan (1) Acute UTI: Status: Acute (2) Altered mental status: Qualifiers: Altered mental status type: disorientation Qualified Code(s): R41.0 - Disorientation, unspecified Status: Acute (3) Hypokalemia: Status: Acute Plan 84-year-old female with a history of alcohol abuse presented from [facility] after complaining that she was too weak to get out of bed. When EMS arrived she was incontinent of urine and there were open alcohol containers in the apartment. In the emergency room workup consistent with likely UTI. Patient will be admitted for treatment of same 1. Acute UTI/altered mental status -ceftriaxone (1) -urine and blood cultures pending -restart sertraline when appropriate 2. Hypokalemia -potassium repleted in ER -follow renals/divalent in a.m. 3. Alcohol abuse disorder -follow up [facility] protocol -no indication for phenobarb at this time -follow up clinically Full code Lovenox Patient will require at least 2 midnights going forward of inpatient hospital stay to treat IV for likely UTI. This can not be achieved a lesser acute setting Quality Stroke Does the patient have a stroke diagnosis?: No VTE Prior VTE?: No VTE Risk Level:: Medical - moderate - high VTE Device Contraindication: Treatment Not Indicated VTE Drug Contraindication: N/A - Med Ordered
--- NOTE | 2024-12-13 19:16 | PHA.MEDREC ---
Pharmacy Consult ? Medication Reconciliation Pharmacy has completed the medication reconciliation, spoke to patient's son as patient was confused and did not know her medications. Son said pt has not been adherent to medications but is supposed to be taking sertraline and taking acetaminophen as needed.
[2024-12-13 19:34] VITALS: BP 198/87
[2024-12-13 20:43] VITALS: BP 174/77; PULSE 73; RESP 16; TEMP 36.6; O2SAT 98
--- NOTE | 2024-12-13 22:06 | PM.EVENT ---
Event Note Date of Service: 12/13/24 Event Note: pt has had persistent HTN, recent BP now 174/77 from 198/87. received amlodipine 5mg so far 2.5 hours ago, will add additional 2.5mg amlodipine and continue to monitor. management discussed with Dr Boyd. Time Spent With Patient Time: Total time managing care of this patient today ____ minutes.
[2024-12-14] VITALS (8 sets, daily range): BP systolic 115–177; BP diastolic 63–75; PULSE 71–99; RESP 16–18; TEMP 36–36.7; O2SAT 94–98; BMI 18.9
[2024-12-14] MEDS: 0.9 % Sodium Chloride Flush 3 ML SYRINGE IVFLUSH ×4 (01:00→23:47)
[2024-12-14 07:59] LABS: MANUAL DIFF FLAG NO
[2024-12-14 08:02] LABS: Hematocrit 37.7 % (37.0-47.0); Hemoglobin 13.9 g/dl (12.0-16.0); Imm Gran Abs Auto 0.06 X10*3/uL (0.00-0.03); Imm Gran Pct Auto 0.4 % (0.0-0.4); Lymphocytes Absolute Auto 1.9 X10*3/uL (1.2-4.9); Mean Corpuscular HGB Conc 36.9 g/dl (31.0-35.0); Mean Corpuscular Hemoglobin 33.7 pg (27.0-33.0); Mean Corpuscular Volume 91.3 fL (80.0-98.0); NRBC Abs Auto 0.000 X10*3/uL (0.0-0.012); NRBC Pct Auto 0.0 /100WBC (0.0-0.2); Platelet Count 413 X10*3/uL (160-400); Red Blood Count 4.13 X10*6/uL (4.20-5.50); White Blood Count 14.2 X10*3/uL (4.8-10.8)
[2024-12-14 08:36] LABS: Alanine Aminotransferase 21 U/L (0-31); Albumin Level 3.7 g/dL (3.5-5.0); Alkaline Phosphatase 127 U/L (39-117); Aspartate Amino Transferase 31 U/L (5-31); Blood Urea Nitrogen 12 mg/dL (9-16); Calcium 9.0 mg/dL (8.4-10.2); Creatinine Clr Calc Pharmacy 54.8; Estimated Glomerular Filt Rate > 60; Total Protein 7.1 g/dL (6.5-8.0)
[2024-12-14 08:45] LABS: Anion Gap 16 (12-20); Carbon Dioxide 25 mmol/L (22-29); Chloride 93 mmol/L (96-108); Potassium 3.6 mmol/L (3.3-5.1); Sodium 130 mmol/L (135-145)
--- NOTE | 2024-12-14 12:50 | HO.PM.IMPN ---
Subjective Subjective Date of Service: 12/14/24 Interval History: Much brighter this a.m.. Able to describe her home setting and the events that led to her hospitalization. No acute issues overnight Review of Systems Unable to obtain Physical Exam Vital Signs: Vital Signs: Last Vital Signs Temp 98 F 12/14/24 11:58 Pulse 87 12/14/24 11:58 Resp 17 12/14/24 11:58 BP 128/75 12/14/24 11:58 Pulse Ox 94 12/14/24 11:58 O2 Del Method Room Air 12/14/24 11:58 BMI result Body Mass Index 18.9 Const: Other: Awake of only. No acute distress Resp: Other: Clear to auscultation bilaterally no rales rhonchi or wheezes Cardio: Other: No S4; positive S1-S2; no S3 murmurs rubs or gallops GI: Other: Soft nontender nondistended normoactive bowel sounds Neuro: Other: Awake alert oriented x1. Moves all extremities with equal power Extrem: Other: No edema bilaterally Objective Data Active Medications Acetaminophen (Acetaminophen 325 Mg Tablet) 650 mg PO Q6H PRN PRN Reason: Pain, Mild 1-3,fever,headache Last Admin: 12/14/24 09:21 Dose: 650 mg Documented By: TUSHAR Calcium Carbonate (Calcium Carbonate 750 Mg Tab.Chew) 750 mg PO Q4H PRN PRN Reason: Heartburn Ceftriaxone Sodium (Ceftriaxone Sodium 1 Gm Vial) 1 gm IVPUSH Q24H [facility] Enoxaparin Sodium (Enoxaparin Sodium 40 Mg/0.4 Ml Syringe) 40 mg SUBCUT Q24H [facility] Last Admin: 12/13/24 18:31 Dose: 40 mg Documented By: CARO Magnesium Hydroxide (Milk Of Magnesia 30 Ml Oral.Susp) 30 ml PO DAILY PRN PRN Reason: Constipation Melatonin (Melatonin 3 Mg Tablet) 6 mg PO BEDTIME PRN PRN Reason: Insomnia Sertraline HCl (Sertraline Hcl 25 Mg Tablet) 75 mg PO DAILY [facility] Last Admin: 12/14/24 09:21 Dose: 75 mg Documented By: TUSHAR Sodium Chloride (0.9 % Sodium Chloride Flush 3 Ml Syringe) 3 ml IVFLUSH QSHIFT [facility] Last Admin: 12/14/24 09:21 Dose: 3 ml Documented By: TUSHAR Labs 12/14/24 07:52 12/14/24 07:52 Labs: Laboratory Results - last 24 hr 12/13/24 12/13/24 12/13/24 13:36 13:37 15:37 MCV 91.0 MCH 33.7 H MCHC 37.1 H RDW 12.1 Plt Count 453 H MPV 8.3 L Immature Gran % (Auto) 0.5 H Neut % (Auto) 86.9 H Lymph % (Auto) 6.9 L [place] % (Auto) 5.3 Eos % (Auto) 0.1 Baso % (Auto) 0.3 Lymph # (Auto) 1.5 [place] # (Auto) 1.1 Eos # (Auto) 0.0 Baso # (Auto) 0.1 Abs Immat Gran (auto) 0.11 H Absolute Neuts (auto) 18.7 H Absolute Nucleated RBC 0.000 Nucleated RBC % (auto) 0.0 Anion Gap 16 Estim Creat Clear Calc 55.3 Estimated GFR > 60 Random Glucose 97 Lactic Acid Calcium 9.1 D Magnesium 1.7 Total Bilirubin 1.0 AST 35 H ALT 21 Alkaline Phosphatase 138 H Ammonia 22 Troponin I High Sens 8.0 D Total Protein 7.3 Albumin 3.9 Urine Color Yellow Urine Appearance Turbid Urine pH 8.5 Ur Specific [place] 1.020 Urine Protein 300 (3+) H Urine Glucose (UA) Negative Urine Ketones 40 Urine Blood Large (3+) H Urine Nitrite Positive H Ur Leukocyte Esterase Moderate (2+) H Urine RBC >20 H Urine WBC >50 H Ur Squamous Epith Cells 3-5 Urine Bacteria 4+ Hyaline Casts 0-2 Urine Opiates Screen Not Detected Ur Buprenorphine Scrn Not Detected Ur Oxycodone Screen Not Detected Urine Methadone Screen Not Detected Urine Fentanyl Screen Not Detected Ur Barbiturates Screen Not Detected Ur Phencyclidine Scrn Not Detected Ur Amphetamines Screen Not Detected U Benzodiazepines Scrn Not Detected Urine Cocaine Screen Not Detected U Marijuana (THC) Screen Not Detected Ethyl Alcohol < 10 Influenza Type A (PCR) NEGATIVE Influenza Type B (PCR) NEGATIVE RSV RNA Qual (PCR) NEGATIVE SARS-CoV-2 RNA (RT-PCR) NEGATIVE 12/13/24 12/14/24 16:48 07:52 MCV 91.3 MCH 33.7 H MCHC 36.9 H RDW 12.2 Plt Count 413 H MPV 8.3 L Immature Gran % (Auto) 0.4 Neut % (Auto) 78.3 H Lymph % (Auto) 13.1 L [place] % (Auto) 7.5 Eos % (Auto) 0.3 Baso % (Auto) 0.4 Lymph # (Auto) 1.9 [place] # (Auto) 1.1 Eos # (Auto) 0.0 Baso # (Auto) 0.1 Abs Immat Gran (auto) 0.06 H Absolute Neuts (auto) 11.1 H Absolute Nucleated RBC 0.000 Nucleated RBC % (auto) 0.0 Anion Gap 16 Estim Creat Clear Calc 54.8 Estimated GFR > 60 Random Glucose 94 Lactic Acid 1.7 Calcium 9.0 Magnesium Total Bilirubin 0.8 AST 31 ALT 21 Alkaline Phosphatase 127 H Ammonia Troponin I High Sens Total Protein 7.1 Albumin 3.7 Urine Color Urine Appearance Urine pH Ur Specific [place] Urine Protein Urine Glucose (UA) Urine Ketones Urine Blood Urine Nitrite Ur Leukocyte Esterase Urine RBC Urine WBC Ur Squamous Epith Cells Urine Bacteria Hyaline Casts Urine Opiates Screen Ur Buprenorphine Scrn Ur Oxycodone Screen Urine Methadone Screen Urine Fentanyl Screen Ur Barbiturates Screen Ur Phencyclidine Scrn Ur Amphetamines Screen U Benzodiazepines Scrn Urine Cocaine Screen U Marijuana (THC) Screen Ethyl Alcohol Influenza Type A (PCR) Influenza Type B (PCR) RSV RNA Qual (PCR) SARS-CoV-2 RNA (RT-PCR) Microbiology Microbiology Results: Microbiology 12/13/24 Unknown Urine Culture - Preliminary Urine clean catch - Clean Catch Midstream Gram negative breanna Assessment and Plan (1) Acute UTI: Status: Acute (2) Hypokalemia: Status: Acute Plan 84-year-old female with a history of alcohol abuse presented from [facility] after complaining that she was too weak to get out of bed. When EMS arrived she was incontinent of urine and there were open alcohol containers in the apartment. In the emergency room workup consistent with likely UTI. Patient will be admitted for treatment of same 1. Acute UTI/altered mental status -ceftriaxone (2) -urine preliminarily Gram-negative rods; blood cultures pending at this time -restart sertraline 2. Hypokalemia -potassium repleted in ER... Normalize -follow renals/divalent in a.m. 3. Alcohol abuse disorder -follow up [facility] protocol -no indication for phenobarb at this time -follow up clinically Full code Courtney Requires ongoing hospitalization for continued IV antibiotics to treat a UTI that cause mental status change. High risk for outpatient failure Quality Stroke Does the patient have a stroke diagnosis?: No VTE Prior VTE?: No VTE Risk Level:: Medical - moderate - high VTE Device Contraindication: Treatment Not Indicated VTE Drug Contraindication: N/A - Med Ordered
--- NOTE | 2024-12-14 16:08 | MHC.CM.PN ---
Addendum entered by Haydee Mckeon 12/15/24 16:19: STR BEING RECOMMENDED PTS INFORMATICS COORDINATOR REQUESTED A REFERRAL TO [facility] Original Note: CM MET WITH PT AND SON, MEME, AT BEDSIDE PT LIVES AT [facility] IN [facility] SHE IS INDEPENDENT WITH CARE SHE USES A W/C AND ASSISTANCE FOR LONG DISTANCE, BUT IS INDEPENDENT FOR SHORT DISTANCES SHE DOES NOT HAVE A HCP, BUT HAS THE PAPERWORK AT HOME PCP: SRINIVAS GEORGE DELIVERED DCP: RETURN TO [facility] VIA FAMILY TRANSPORT
[2024-12-15] VITALS (7 sets, daily range): BP systolic 125–144; BP diastolic 58–99; PULSE 74–84; RESP 14–18; TEMP 36.1–36.7; O2SAT 93–99
--- NOTE | 2024-12-15 03:30 | PC.NURSE ---
Patient found sleeping undressed, encouraged to put Colt on. She was able to reach belongings bag and put on her T-shirt from home and black sweat pants which smell very strongly of urine. 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
[2024-12-15 06:18] LABS: MANUAL DIFF FLAG NO
[2024-12-15 06:54] LABS: Alanine Aminotransferase 19 U/L (0-31); Albumin Level 3.5 g/dL (3.5-5.0); Alkaline Phosphatase 117 U/L (39-117); Anion Gap 14 (12-20); Aspartate Amino Transferase 34 U/L (5-31); Blood Urea Nitrogen 8 mg/dL (9-16); Calcium 8.7 mg/dL (8.4-10.2); Carbon Dioxide 23 mmol/L (22-29); Chloride 93 mmol/L (96-108); Creatinine Clr Calc Pharmacy 55.8; Estimated Glomerular Filt Rate > 60; Potassium 3.0 mmol/L (3.3-5.1); Sodium 127 mmol/L (135-145); Total Protein 6.7 g/dL (6.5-8.0)
[2024-12-15 06:56] LABS: Hematocrit 37.1 % (37.0-47.0); Hemoglobin 13.4 g/dl (12.0-16.0); Imm Gran Abs Auto 0.11 X10*3/uL (0.00-0.03); Imm Gran Pct Auto 0.9 % (0.0-0.4); Lymphocytes Absolute Auto 2.6 X10*3/uL (1.2-4.9); Mean Corpuscular HGB Conc 36.1 g/dl (31.0-35.0); Mean Corpuscular Hemoglobin 33.6 pg (27.0-33.0); Mean Corpuscular Volume 93.0 fL (80.0-98.0); NRBC Abs Auto 0.000 X10*3/uL (0.0-0.012); NRBC Pct Auto 0.0 /100WBC (0.0-0.2); Platelet Count 396 X10*3/uL (160-400); Red Blood Count 3.99 X10*6/uL (4.20-5.50); White Blood Count 11.7 X10*3/uL (4.8-10.8)
[2024-12-15] MEDS: Potassium Chloride Packet 20 MEQ PACKET 40 MEQ PO (08:10)
[2024-12-15] MEDS: 0.9 % Sodium Chloride Flush 3 ML SYRINGE IVFLUSH ×2 (08:13→16:33)
--- NOTE | 2024-12-15 13:10 | HO.PM.IMPN ---
Subjective Subjective Date of Service: 12/15/24 Interval History: seen and evaluated this morning more alert and interactive but still confused no fever or chills overnight Low Na and K this morning no other events Review of Systems Review of Systems: Yes all other systems are reviewed and are negative Physical Exam Vital Signs: Vital Signs: Last Vital Signs Temp 97.7 F 12/15/24 12:00 Pulse 80 12/15/24 12:00 Resp 14 12/15/24 12:00 BP 142/67 H 12/15/24 12:00 Pulse Ox 98 12/15/24 12:00 O2 Del Method Room Air 12/15/24 12:00 BMI result Body Mass Index 18.9 Const: Other: Constitutional : interactive, not in distress Cardiovascular : no JVP, no lower extremity edema Respiratory : bilateral chest movement, not in resp distress Gastrointestinal: soft, lax, Non tender Skin : Warm, Dry Neurological : Alert & oriented to self only , No focal deficit Objective Data Active Medications Acetaminophen (Acetaminophen 325 Mg Tablet) 650 mg PO Q6H PRN PRN Reason: Pain, Mild 1-3,fever,headache Last Admin: 12/15/24 08:23 Dose: 650 mg Documented By: CURRY Calcium Carbonate (Calcium Carbonate 750 Mg Tab.Chew) 750 mg PO Q4H PRN PRN Reason: Heartburn Ceftriaxone Sodium (Ceftriaxone Sodium 1 Gm Vial) 1 gm IVPUSH Q24H COUNTS INCLUDE 234 BEDS AT THE [facility] Last Admin: 12/14/24 15:27 Dose: 1 gm Documented By: TUSHAR Enoxaparin Sodium (Enoxaparin Sodium 40 Mg/0.4 Ml Syringe) 40 mg SUBCUT Q24H COUNTS INCLUDE 234 BEDS AT THE [facility] Last Admin: 12/14/24 17:53 Dose: 40 mg Documented By: TUSHAR Magnesium Hydroxide (Milk Of Magnesia 30 Ml Oral.Susp) 30 ml PO DAILY PRN PRN Reason: Constipation Melatonin (Melatonin 3 Mg Tablet) 6 mg PO BEDTIME PRN PRN Reason: Insomnia Sertraline HCl (Sertraline Hcl 25 Mg Tablet) 75 mg PO DAILY COUNTS INCLUDE 234 BEDS AT THE [facility] Last Admin: 12/15/24 08:10 Dose: 75 mg Documented By: CURRY Sodium Chloride (0.9 % Sodium Chloride Flush 3 Ml Syringe) 3 ml IVFLUSH QSHIFT COUNTS INCLUDE 234 BEDS AT THE [facility] Last Admin: 12/15/24 08:13 Dose: 3 ml Documented By: CURRY Labs 12/15/24 05:56 12/15/24 05:56 Labs: Laboratory Results - last 24 hr 12/15/24 05:56 MCV 93.0 MCH 33.6 H MCHC 36.1 H RDW 12.1 Plt Count 396 MPV 8.6 L Immature Gran % (Auto) 0.9 H Neut % (Auto) 66.3 Lymph % (Auto) 22.0 [place] % (Auto) 9.2 Eos % (Auto) 0.9 Baso % (Auto) 0.7 Lymph # (Auto) 2.6 [place] # (Auto) 1.1 Eos # (Auto) 0.1 Baso # (Auto) 0.1 Abs Immat Gran (auto) 0.11 H Absolute Neuts (auto) 7.8 Absolute Nucleated RBC 0.000 Nucleated RBC % (auto) 0.0 Anion Gap 14 Estim Creat Clear Calc 55.8 Estimated GFR > 60 Fasting Glucose 90 Calcium 8.7 Total Bilirubin 0.9 AST 34 H ALT 19 Alkaline Phosphatase 117 Total Protein 6.7 Albumin 3.5 Microbiology Microbiology Results: Microbiology 12/13/24 Unknown Urine Culture - Final Urine clean catch - Clean Catch Midstream Proteus mirabilis 12/13/24 16:50 Blood Culture - Preliminary Blood - Venous No growth after 24 hours. 12/13/24 16:48 Blood Culture - Preliminary Blood - Venous No growth after 24 hours. Assessment and Plan (1) Hypokalemia: Status: Acute (2) Acute UTI: Status: Acute (3) Altered mental status: Status: Acute Plan 84-year-old female with a history of alcohol abuse presented from [facility] after complaining that she was too weak to get out of bed. When EMS arrived she was incontinent of urine and there were open alcohol containers in the apartment. In the emergency room workup consistent with likely UTI. Patient will be admitted for treatment of same # Acute UTI complicated with acute metabolic encephalopathy Mentation improving, seems close to baseline, she lives in independent living facility; sounds concerning at this stage Gontinue ceftriaxone (2) UCx growing sensitive Proteus; blood cultures negative restart sertraline PT eval for possible placement # Acute Hypokalemia potassium repleted follow renals/divalent in a.m. # Acute on chronic hyponatremia Na of 127 , baseline around 130-132 water restriction # Hx Alcohol abuse disorder follow up [facility] protocol no indication for phenobarb at this time follow up clinically Full code Lover[place]x Requires ongoing hospitalization for continued IV antibiotics to treat a UTI that cause mental status change. High risk for outpatient failure Quality Stroke Does the patient have a stroke diagnosis?: No VTE Prior VTE?: No VTE Risk Level:: Medical - moderate - high VTE Device Contraindication: Treatment Not Indicated VTE Drug Contraindication: N/A - Med Ordered
[2024-12-16] VITALS (7 sets, daily range): BP systolic 129–162; BP diastolic 72–93; PULSE 57–80; RESP 12–18; TEMP 36.1–37.2; O2SAT 95–98; BMI 19.1
[2024-12-16] MEDS: 0.9 % Sodium Chloride Flush 3 ML SYRINGE IVFLUSH ×4 (00:26→22:34)
[2024-12-16 06:15] LABS: MANUAL DIFF FLAG NO
[2024-12-16 06:23] LABS: Hematocrit 35.7 % (37.0-47.0); Hemoglobin 12.9 g/dl (12.0-16.0); Imm Gran Abs Auto 0.08 X10*3/uL (0.00-0.03); Imm Gran Pct Auto 0.8 % (0.0-0.4); Lymphocytes Absolute Auto 2.8 X10*3/uL (1.2-4.9); Mean Corpuscular HGB Conc 36.1 g/dl (31.0-35.0); Mean Corpuscular Hemoglobin 33.1 pg (27.0-33.0); Mean Corpuscular Volume 91.5 fL (80.0-98.0); NRBC Abs Auto 0.000 X10*3/uL (0.0-0.012); NRBC Pct Auto 0.0 /100WBC (0.0-0.2); Platelet Count 400 X10*3/uL (160-400); Red Blood Count 3.90 X10*6/uL (4.20-5.50); White Blood Count 10.2 X10*3/uL (4.8-10.8)
[2024-12-16 06:33] LABS: Anion Gap 11 (12-20); Blood Urea Nitrogen 7 mg/dL (9-16); Calcium 8.6 mg/dL (8.4-10.2); Carbon Dioxide 26 mmol/L (22-29); Chloride 93 mmol/L (96-108); Creatinine Clr Calc Pharmacy 53.0; Estimated Glomerular Filt Rate > 60; Potassium 3.4 mmol/L (3.3-5.1); Sodium 127 mmol/L (135-145)
--- NOTE | 2024-12-16 10:40 | PM.CNNEP ---
History of Present Illness Reason for Consult Consult date: 12/16/24 Chief Complaint Chief complaint: UTI, Encephalopathy History of Present Illness Narrative: 84-year-old female with a history of alcohol abuse (no other known medical history) presented from her assisted living facility after complaining that she was too weak to get out of bed- was found incontinent of urine with open bottles of alcohol in her apartment. Nephrology consulted for hyponatremia. per chart, sodium ranges from 127-133 since 2022. sodium today 127. patient states she drinks 2-3 beers daily. States she eats well and eats out at a restaurant for each meal, she has two daily. She reports she does not drink excessive water, just tries to drink water after each void during the day to maintain hydration. She states she has some pain in her mild to moderate back, otherwise denies pain, nausea. Denies breathing difficulty. Review of Systems Constitutional: Reports no additional constitutional complaints Cardiovascular: Denies chest pain, Denies leg edema, Denies lightheadedness and Denies dyspnea Respiratory: Denies dyspnea Gastrointestinal: Denies abdominal pain, Denies constipation, Denies diarrhea, Denies nausea and Denies vomiting Genitourinary: Denies urinary frequency, Denies difficulty voiding, Denies dysuria and Denies flank pain Musculoskeletal: Reports back pain and Denies arthralgias Skin/Breast: Denies rash PMFSH Past Medical History Medical History Alcohol abuse Social History Social History Household Members: Other Household Members Other:: [facility] Housing: Assisted Living Facility Do you presently have visiting nurse or other home services: No Alcohol intake: current Alcohol intake frequency: 0-2 drinks per day Alcohol type: beer Patient Tobacco Use Status: Current someday Tobacco user Tobacco use type: Cigarette Cigarette Packs Per Day: 0 Cigarettes Per Day: 0 Years Smoked: 30 Smoked in Last 30 Days: Yes e-Cigarette/Vaping Use: Never Used Patient Interested in Nicotine Replacement: No Patient Given Instructions on How to Stop Smoking: No (refused) Second Hand Smoke Exposure: No (refused) Currently Displaying Signs/Symptoms of Drug Intoxication Withdrawal: No Have you been hit, kicked, punched, or otherwise hurt by someone within the past year? If so, by whom?: No Do you feel safe in your current relationship?: Yes Is there a partner from a previous relationship who is making you feel unsafe now?: No Are you made to feel afraid or neglected: No Spiritual Healthcare Practices: No Mu-Ism Healthcare Practices: No Cultural Healthcare Practices: No Advance Directives: No Advance Directives Information Provided: No Do you have a plan to hurt others: No Plan Recently lost weight without trying: Unsure Nutrition Risks: No Nutritional Risk Patient : No : No Poor oral hygiene: No service: No Meds Allergies Allergy/AdvReac Type Severity Reaction Status Date / Time Influenza Virus Vaccines Allergy Unknown Verified 12/13/24 13:03 Active Medications: Current Medications Acetaminophen (Acetaminophen 325 Mg Tablet) 650 mg PO Q6H PRN PRN Reason: Pain, Mild 1-3,fever,headache Last Admin: 12/16/24 01:26 Dose: 650 mg Calcium Carbonate (Calcium Carbonate 750 Mg Tab.Chew) 750 mg PO Q4H PRN PRN Reason: Heartburn Ceftriaxone Sodium (Ceftriaxone Sodium 1 Gm Vial) 1 gm IVPUSH Q24H [facility] Last Admin: 12/15/24 16:33 Dose: 1 gm Enoxaparin Sodium (Enoxaparin Sodium 40 Mg/0.4 Ml Syringe) 40 mg SUBCUT Q24H [facility] Last Admin: 12/15/24 17:21 Dose: 40 mg Magnesium Hydroxide (Milk Of Magnesia 30 Ml Oral.Susp) 30 ml PO DAILY PRN PRN Reason: Constipation Melatonin (Melatonin 3 Mg Tablet) 6 mg PO BEDTIME PRN PRN Reason: Insomnia Last Admin: 12/16/24 01:26 Dose: 6 mg Sertraline HCl (Sertraline Hcl 25 Mg Tablet) 75 mg PO DAILY [facility] Last Admin: 12/16/24 07:30 Dose: 75 mg Sodium Chloride (0.9 % Sodium Chloride Flush 3 Ml Syringe) 3 ml IVFLUSH QSHIFT [facility] Last Admin: 12/16/24 07:30 Dose: 3 ml Home Medications ?Medication ?Instructions ?Recorded ?Confirmed ?Last Taken ?Type acetaminophen 325 mg tablet 650 mg PO Q6H PRN Pain 12/13/24 12/13/24 Unknown History sertraline 50 mg tablet 75 mg PO DAILY 12/13/24 12/13/24 Unknown History Physical Exam Vital Signs: Last Vital Signs Temp 97.0 F 12/16/24 11:30 Pulse 68 12/16/24 11:30 Resp 16 12/16/24 11:30 BP 159/77 H 12/16/24 11:30 Pulse Ox 97 12/16/24 11:30 O2 Del Method Room Air 12/16/24 11:30 BMI result Body Mass Index 19.1 Const General: no acute distress, alert and awake Resp Effort & Inspection: normal respiratory effort and able to speak in complete sentences Auscultation: clear to auscultation bilaterally Cardio Rate: regular rate Rhythm: regular rhythm Heart sounds: S1 normal heart sound present and S2 normal heart sound present GI Palpation (GI): Soft to palpation and nontender Skin Rashes: no rashes Extrem General: No edema Results Lab Results 12/16/24 06:02 12/16/24 06:02 Lab results: Chemistry 12/13/24 12/14/24 12/15/24 13:37 07:52 05:56 Sodium 127 L 130 L 127 L Potassium 2.9 L* D 3.6 D 3.0 L Carbon Dioxide 24 25 23 BUN 13 12 8 L Creatinine 0.63 0.58 0.57 Calcium 9.1 D 9.0 8.7 12/16/24 06:02 Sodium 127 L Potassium 3.4 Carbon Dioxide 26 BUN 7 L Creatinine 0.60 Calcium 8.6 Hematology 12/13/24 12/14/24 12/15/24 13:37 07:52 05:56 WBC 21.5 H 14.2 H 11.7 H Hgb 14.6 13.9 13.4 Plt Count 453 H 413 H 396 12/16/24 06:02 WBC 10.2 Hgb 12.9 Plt Count 400 Urinalysis 12/13/24 15:37 Urine Color Yellow Urine Appearance Turbid Urine pH 8.5 Ur Specific [place] 1.020 Urine Protein 300 (3+) H Urine Glucose (UA) Negative Urine Ketones 40 Urine Blood Large (3+) H Urine Nitrite Positive H Ur Leukocyte Esterase Moderate (2+) H Urine RBC >20 H Urine WBC >50 H Ur Squamous Epith Cells 3-5 Hyaline Casts 0-2 Assessment and Plan (1) Hyponatremia: Status: Inactive Plan Hyponatremia- seems to be at chronic baseline beer potomania on differential- Will check urine studies, as well as TSH and cortisol levels recommend free water restriction, further recommendations pending evolving data Procedures Date of Service Date of Service: 12/16/24
[2024-12-16 10:49] LABS: Uric Acid 2.8 mg/dL (2.4-5.7)
--- NOTE | 2024-12-16 11:56 | MHC.CM.PN ---
SANDEE spoke with Nicolette Colbert CM. She was notified that [facility] have declined to offer a bed. She requested referrals be sent to [facility]. Allyson Cota is in review. She is not interested in DBV. DP STR via BLS.
--- NOTE | 2024-12-16 18:01 | HO.PM.IMPN ---
Subjective Subjective Date of Service: 12/16/24 Interval History: uti encephalopathy Review of Systems more awake no fever or chills says right side back pain Physical Exam Vital Signs: Vital Signs: Last Vital Signs Temp 98.6 F 12/16/24 16:09 Pulse 80 12/16/24 16:09 Resp 12 12/16/24 16:09 BP 138/93 H 12/16/24 16:09 Pulse Ox 98 12/16/24 16:09 O2 Del Method Room Air 12/16/24 16:09 BMI result Body Mass Index 19.1 Appearance: awake,interactive. cvs: rrr, [id number] . res: clear to auscultation ,no rhonchii or wheezing abd: no rebound or guarding ,nt, bs present. ext pulses present , no cyanosis . MS: ? some soarness right thoracic area neuro: nonfocal. Objective Data Active Medications Acetaminophen (Acetaminophen 325 Mg Tablet) 650 mg PO Q6H PRN PRN Reason: Pain, Mild 1-3,fever,headache Last Admin: 12/16/24 15:56 Dose: 650 mg Documented By: CURRY Calcium Carbonate (Calcium Carbonate 750 Mg Tab.Chew) 750 mg PO Q4H PRN PRN Reason: Heartburn Ceftriaxone Sodium (Ceftriaxone Sodium 1 Gm Vial) 1 gm IVPUSH Q24H [facility] Last Admin: 12/16/24 15:56 Dose: 1 gm Documented By: CURRY Enoxaparin Sodium (Enoxaparin Sodium 40 Mg/0.4 Ml Syringe) 40 mg SUBCUT Q24H [facility] Last Admin: 12/16/24 17:51 Dose: 40 mg Documented By: CURRY Magnesium Hydroxide (Milk Of Magnesia 30 Ml Oral.Susp) 30 ml PO DAILY PRN PRN Reason: Constipation Melatonin (Melatonin 3 Mg Tablet) 6 mg PO BEDTIME PRN PRN Reason: Insomnia Last Admin: 12/16/24 01:26 Dose: 6 mg Documented By: SEBASTIAN Sertraline HCl (Sertraline Hcl 25 Mg Tablet) 75 mg PO DAILY [facility] Last Admin: 12/16/24 07:30 Dose: 75 mg Documented By: CURRY Sodium Chloride (0.9 % Sodium Chloride Flush 3 Ml Syringe) 3 ml IVFLUSH QSHIFT [facility] Last Admin: 12/16/24 16:02 Dose: 3 ml Documented By: CURRY Labs 12/16/24 06:02 12/16/24 06:02 Labs: Laboratory Results - last 24 hr 12/16/24 12/16/24 06:02 10:20 MCV 91.5 MCH 33.1 H MCHC 36.1 H RDW 12.2 Plt Count 400 MPV 8.5 L Immature Gran % (Auto) 0.8 H Neut % (Auto) 58.3 Lymph % (Auto) 27.7 [place] % (Auto) 10.5 Eos % (Auto) 1.9 Baso % (Auto) 0.8 Lymph # (Auto) 2.8 [place] # (Auto) 1.1 Eos # (Auto) 0.2 Baso # (Auto) 0.1 Abs Immat Gran (auto) 0.08 H Absolute Neuts (auto) 6.0 Absolute Nucleated RBC 0.000 Nucleated RBC % (auto) 0.0 Anion Gap 11 L Estim Creat Clear Calc 53.0 Estimated GFR > 60 Random Glucose 93 Uric Acid 2.8 Calcium 8.6 Microbiology Microbiology Results: Microbiology 12/13/24 16:50 Blood Culture - Preliminary Blood - Venous No growth after 48 hours. 12/13/24 16:48 Blood Culture - Preliminary Blood - Venous No growth after 48 hours. Assessment and Plan (1) Hypokalemia: Status: Acute (2) Acute UTI: Status: Acute (3) Altered mental status: Status: Acute Plan 84-year-old female with a history of alcohol abuse presented from [facility] after complaining that she was too weak to get out of bed. When EMS arrived she was incontinent of urine and there were open alcohol containers in the apartment. In the emergency room workup consistent with likely UTI. Patient will be admitted for treatment of same Acute UTI complicated with acute metabolic encephalopathy Mentation improving, seems close to baseline, she lives in independent living facility; sounds concerning at this stage Gontinue ceftriaxone (2) UCx growing sensitive Proteus; blood cultures negative restart sertraline PT eval for possible placement Acute Hypokalemia potassium repleted and resolved. ? right thoracic back area soarness: will check thoracic spine xray. Acute on chronic hyponatremia Na of 127 , baseline around 130-132 water restriction Hx Alcohol abuse disorder follow up [place] protocol no indication for phenobarb at this time follow up clinically Full code Lovenox Requires ongoing hospitalization for continued IV antibiotics to treat a UTI that cause mental status change. High risk for outpatient failure Quality Stroke Does the patient have a stroke diagnosis?: No VTE Prior VTE?: No VTE Risk Level:: Medical - moderate - high VTE Device Contraindication: Treatment Not Indicated VTE Drug Contraindication: N/A - Med Ordered
[2024-12-17 03:57] VITALS: BP 158/74; PULSE 89; RESP 18; TEMP 37.1; O2SAT 98
[2024-12-17 07:30] LABS: Anion Gap 9 (12-20); Blood Urea Nitrogen 7 mg/dL (9-16); Calcium 8.9 mg/dL (8.4-10.2); Carbon Dioxide 27 mmol/L (22-29); Chloride 96 mmol/L (96-108); Creatinine Clr Calc Pharmacy 49.5; Estimated Glomerular Filt Rate > 60; Potassium 3.3 mmol/L (3.3-5.1); Sodium 129 mmol/L (135-145)
[2024-12-17 07:46] LABS: Thyroid Stimulating Hormone 1.73 uIU/mL (0.32-4.0)
[2024-12-17 07:49] VITALS: BP 171/79; PULSE 78; RESP 18; TEMP 36.3; O2SAT 97
[2024-12-17] MEDS: 0.9 % Sodium Chloride Flush 3 ML SYRINGE IVFLUSH ×3 (08:16→20:23)
--- NOTE | 2024-12-17 10:50 | P.PNNP_ITS ---
Subjective Subjective Date of Service: 12/17/24 Interval history: following for hyponatremia- here with UTI and encephalopathy. patient reports she feels tired, poor appetite. Otherwise denies new complaints/concerns. Physical Exam 2 Vital Signs: Vital Signs: Last Vital Signs Temp 97.8 F 12/17/24 11:29 Pulse 66 12/17/24 11:29 Resp 17 12/17/24 11:29 BP 164/83 H 12/17/24 11:29 Pulse Ox 97 12/17/24 11:29 O2 Del Method Room Air 12/17/24 11:29 BMI result Body Mass Index 19.1 Const: General: no acute distress, alert and awake Resp: Effort & Inspection: normal respiratory effort and able to speak in complete sentences Auscultation: clear to auscultation bilaterally Cardio: Rate: regular rate Rhythm: regular rhythm Heart sounds: S1 normal heart sound present and S2 normal heart sound present GI: Palpation (GI): Soft to palpation and nontender Skin: Rashes: no rashes Extrem: General: No edema Objective Data Labs 12/16/24 06:02 12/17/24 06:44 Labs: Laboratory Results - last 24 hr 12/16/24 12/17/24 12/17/24 21:24 06:44 10:54 Hold Purple Top SEE NOTE Sodium 129 L Potassium 3.3 Chloride 96 Carbon Dioxide 27 Anion Gap 9 L BUN 7 L Creatinine 0.65 Estim Creat Clear Calc 49.5 Estimated GFR > 60 Random Glucose 94 Calcium 8.9 Vitamin B12 Folate TSH 1.73 Random Cortisol 19.6 Urine Osmolality 197 L Ur Random Sodium < 20.0 12/17/24 11:51 Hold Purple Top Sodium Potassium Chloride Carbon Dioxide Anion Gap BUN Creatinine Estim Creat Clear Calc Estimated GFR Random Glucose Calcium Vitamin B12 666 Folate > 20.0 TSH Random Cortisol Urine Osmolality Ur Random Sodium Microbiology Microbiology Results: Microbiology 12/13/24 16:50 Blood - Venous Blood Culture - Preliminary No growth after 48 hours. 12/13/24 16:48 Blood - Venous Blood Culture - Preliminary No growth after 48 hours. 12/13/24 Unknown Urine clean catch - Clean Catch Midstream Urine Culture - Final Proteus mirabilis Procedures Date of Service Date of Service: 12/17/24 Assessment & Plan Assessment and plan (1) Hyponatremia: Status: Inactive Plan Hyponatremia- seems to be at chronic baseline. May have reset osmostat hyponatremia and so unlikely to have sodium normalize. urine osm still pending - urine is concentrated with low specific gravity and urine sodium <20, so likely low on fluid volume. recommend discontinuing fluid restriction. Recommend IVF NS, 1L today Will check urine studies, as well as TSH and cortisol level pending. recommend addressing depression and poor appetite, encouraged improved nutritional intake. Discussed with Dr Sharp. Time Spent With Patient Time: Total time managing care of this patient today ____ minutes. Progress Note: Quality Stroke Does the patient have a stroke diagnosis?: No
[2024-12-17 11:29] VITALS: BP 164/83; PULSE 66; RESP 17; TEMP 36.6; O2SAT 97
[2024-12-17 12:49] LABS: Folate > 20.0 ng/mL (> or = 4.0); Vitamin B12 666 pg/mL (200-900)
--- NOTE | 2024-12-17 14:03 | MHC.CM.PN ---
Per MD no discharge today. A Psych consult has been ordered. TOVA Ramirez via S.
--- NOTE | 2024-12-17 14:21 | P.PNIM_ITS ---
Subjective Subjective Date of Service: 12/17/24 Interval History: uti generaled weak ch back pain Review of Systems patient says usually has pain upper back area encouraged for po intaje and hydration. Physical Exam 2 Vital Signs: Vital Signs: Last Vital Signs Temp 97.8 F 12/17/24 11:29 Pulse 66 12/17/24 11:29 Resp 17 12/17/24 11:29 BP 164/83 H 12/17/24 11:29 Pulse Ox 97 12/17/24 11:29 O2 Del Method Room Air 12/17/24 11:29 BMI result Body Mass Index 19.1 Appearance: awake,interactive. cvs: rrr, [id number] . res: clear to auscultation ,no rhonchii or wheezing abd: no rebound or guarding ,nt, bs present. ext pulses present , no cyanosis . MS: some soarness right thoracic area neuro: nonfocal. Objective Data Active Medications Acetaminophen (Acetaminophen 325 Mg Tablet) 650 mg PO Q6H PRN PRN Reason: Pain, Mild 1-3,fever,headache Last Admin: 12/17/24 10:34 Dose: 650 mg Documented By: TUSHAR Calcium Carbonate (Calcium Carbonate 750 Mg Tab.Chew) 750 mg PO Q4H PRN PRN Reason: Heartburn Ceftriaxone Sodium (Ceftriaxone Sodium 1 Gm Vial) 1 gm IVPUSH Q24H [facility] Last Admin: 12/16/24 15:56 Dose: 1 gm Documented By: CURRY Enoxaparin Sodium (Enoxaparin Sodium 40 Mg/0.4 Ml Syringe) 40 mg SUBCUT Q24H [facility] Last Admin: 12/16/24 17:51 Dose: 40 mg Documented By: CURRY Folic Acid (Folic Acid 1 Mg Tablet) 1 mg PO DAILY [facility] Last Admin: 12/17/24 10:35 Dose: 1 mg Documented By: TUSHAR Magnesium Hydroxide (Milk Of Magnesia 30 Ml Oral.Susp) 30 ml PO DAILY PRN PRN Reason: Constipation Melatonin (Melatonin 3 Mg Tablet) 6 mg PO BEDTIME PRN PRN Reason: Insomnia Last Admin: 12/16/24 01:26 Dose: 6 mg Documented By: SEBASTIAN Sertraline HCl (Sertraline Hcl 25 Mg Tablet) 75 mg PO DAILY [facility] Last Admin: 12/17/24 08:14 Dose: 75 mg Documented By: TUSHAR Sodium Chloride (0.9 % Sodium Chloride Flush 3 Ml Syringe) 3 ml IVFLUSH QSHIFT [facility] Last Admin: 12/17/24 08:16 Dose: 3 ml Documented By: TUSHAR Thiamine HCl (Thiamine Hcl 100 Mg Tablet) 100 mg PO DAILY [facility] Last Admin: 12/17/24 10:35 Dose: 100 mg Documented By: TUSHAR Labs 12/16/24 06:02 12/17/24 06:44 Labs: Laboratory Results - last 24 hr 12/16/24 12/17/24 12/17/24 21:24 06:44 10:54 Hold Purple Top SEE NOTE Anion Gap 9 L Estim Creat Clear Calc 49.5 Estimated GFR > 60 Random Glucose 94 Calcium 8.9 Vitamin B12 Folate TSH 1.73 Random Cortisol 19.6 Urine Osmolality 197 L Ur Random Sodium < 20.0 12/17/24 11:51 Hold Purple Top Anion Gap Estim Creat Clear Calc Estimated GFR Random Glucose Calcium Vitamin B12 666 Folate > 20.0 TSH Random Cortisol Urine Osmolality Ur Random Sodium Assessment and Plan (1) Hypokalemia: Status: Acute (2) Acute UTI: Status: Acute Assessment and Plan: 84-year-old female with a history of alcohol abuse presented from [facility] after complaining that she was too weak to get out of bed. When EMS arrived she was incontinent of urine and there were open alcohol containers in the apartment. In the emergency room workup consistent with likely UTI. Patient will be admitted for treatment of same Acute UTI complicated with acute metabolic encephalopathy Mentation improving, seems close to baseline, she lives in independent living facility; sounds concerning at this stage Gontinue ceftriaxone (2) UCx growing sensitive Proteus; blood cultures negative restart sertraline PT eval for possible placement Acute Hypokalemia potassium repleted and resolved. ? right thoracic back area soarness: thoracic spine xray- ch compresion deformities on thoracic spine c6-7,12. pain managment and pt. Acute on chronic hyponatremia Na of 129 , baseline around 130-132 water restriction Hx Alcohol abuse disorder follow up [facility] protocol no indication for phenobarb at this time follow up clinically depression/dec po inatke,decline function : psych eval above d/w family in detail. Full code Lovenox Requires ongoing hospitalization for continued IV antibiotics to treat a UTI that cause mental status change. High risk for outpatient failure Quality Stroke Does the patient have a stroke diagnosis?: No VTE Prior VTE?: No VTE Risk Level:: Medical - moderate - high VTE Device Contraindication: Treatment Not Indicated VTE Drug Contraindication: N/A - Med Ordered
[2024-12-17 15:11] VITALS: BP 140/74; PULSE 74; RESP 17; TEMP 37.3; O2SAT 97
[2024-12-17 20:00] VITALS: BP 151/68; PULSE 82; RESP 18; TEMP 36.3; O2SAT 96
--- NOTE | 2024-12-17 20:03 | PM.PSYCN ---
History of Present Illness Date of Service: 12/17/24 Chief Complaint: UTI, Encephalopathy Reason for Consult: Depression. Medication management Requesting physician: Jace Mancia Discussed with referring provider: No (Provider is not on duty at this current time. Case discuss with on duty WAX BLEACHER) Sources of Information: patient interviewed and chart reviewed HPI Narrative: Patient is a 84-year-old female with a history of alcohol abuse presented from [facility] after complaining that she was too weak to get out of bed. When EMS arrived she was incontinent of urine and there were open alcohol containers in the apartment. In the emergency room workup consistent with likely UTI. Patient will be admitted for treatment of the above medical issues. Past Psychiatric History: report hx of depression. Report used to see psychiatrist but not currently. She has been on Zoloft for a period of time but not able to recall for how long ago. She is not able to give full psychiatric hx d/t mental current mental status. Medical Evaluation Reviewed: Yes Patient is treating for UTI and hyponatremia Personal & Social History: Patient live in [facility], has two sons. One of them she sees often and another on live far away Review of Systems Review of Systems Patient is treating for low sodium and UIT. Potassium back to [facility] Medical History Alcohol abuse Diagnostics Vital Signs (24Hr): Vital Signs - 24 hr 12/16/24 23:50 12/17/24 03:57 12/17/24 07:49 Temperature 98.8 F 98.7 F 97.4 F Pulse Rate 80 89 78 Respiratory Rate 18 18 18 Blood Pressure 129/73 158/74 H 171/79 H Pulse Oximetry 98 98 97 Oxygen Delivery Method Room Air Room Air Room Air 12/17/24 11:29 12/17/24 15:11 Temperature 97.8 F 99.1 F Pulse Rate 66 74 Respiratory Rate 17 17 Blood Pressure 164/83 H 140/74 H Pulse Oximetry 97 97 Oxygen Delivery Method Room Air Room Air BMI result Body Mass Index 19.1 Labs 12/16/24 06:02 12/17/24 06:44 Labs: Laboratory Results - last 48 hr 12/16/24 12/16/24 12/16/24 06:02 10:20 21:24 WBC 10.2 RBC 3.90 L Hgb 12.9 Hct 35.7 L MCV 91.5 MCH 33.1 H MCHC 36.1 H RDW 12.2 Plt Count 400 MPV 8.5 L Immature Gran % (Auto) 0.8 H Neut % (Auto) 58.3 Lymph % (Auto) 27.7 Hudson % (Auto) 10.5 Eos % (Auto) 1.9 Baso % (Auto) 0.8 Lymph # (Auto) 2.8 Hudson # (Auto) 1.1 Eos # (Auto) 0.2 Baso # (Auto) 0.1 Abs Immat Gran (auto) 0.08 H Absolute Neuts (auto) 6.0 Absolute Nucleated RBC 0.000 Nucleated RBC % (auto) 0.0 Hold Purple Top Sodium 127 L Potassium 3.4 Chloride 93 L Carbon Dioxide 26 Anion Gap 11 L BUN 7 L Creatinine 0.60 Estim Creat Clear Calc 53.0 Estimated GFR > 60 Random Glucose 93 Uric Acid 2.8 Calcium 8.6 Vitamin B12 Folate TSH Random Cortisol Urine Osmolality Ur Random Sodium < 20.0 12/17/24 12/17/24 12/17/24 06:44 10:54 11:51 WBC RBC Hgb Hct MCV MCH MCHC RDW Plt Count MPV Immature Gran % (Auto) Neut % (Auto) Lymph % (Auto) Hudson % (Auto) Eos % (Auto) Baso % (Auto) Lymph # (Auto) Hudson # (Auto) Eos # (Auto) Baso # (Auto) Abs Immat Gran (auto) Absolute Neuts (auto) Absolute Nucleated RBC Nucleated RBC % (auto) Hold Purple Top SEE NOTE Sodium 129 L Potassium 3.3 Chloride 96 Carbon Dioxide 27 Anion Gap 9 L BUN 7 L Creatinine 0.65 Estim Creat Clear Calc 49.5 Estimated GFR > 60 Random Glucose 94 Uric Acid Calcium 8.9 Vitamin B12 666 Folate > 20.0 TSH 1.73 Random Cortisol 19.6 Urine Osmolality 197 L Ur Random Sodium Mental Status Exam Mental Status Exam Narrative: She is alert and oriented to her , not alert to current month or year. She knows she is in the hospital not but knowing the same of the hospital or its location. Mood is depressed , She is in hospital attitte with unkempt hair. Denies anxious. She is pleasant upon approach but appears to have hearing issues.Qestions needed to be repeated a couple of times before she answered. Slow to rerspond. No delusional or paranoid statement made. Do not appear to respond to internal stimuli. Do not appear to be psychotic. However, she reports passive SI without plan or intent. Report passive SI for a while d/t old age . Poor judgment and poor insight Medications Medications Current Medications Acetaminophen (Acetaminophen 325 Mg Tablet) 650 mg PO Q6H PRN PRN Reason: Pain, Mild 1-3,fever,headache Last Admin: 12/17/24 10:34 Dose: 650 mg Calcium Carbonate (Calcium Carbonate 750 Mg Tab.Chew) 750 mg PO Q4H PRN PRN Reason: Heartburn Ceftriaxone Sodium (Ceftriaxone Sodium 1 Gm Vial) 1 gm IVPUSH Q24H [facility] Last Admin: 12/17/24 15:52 Dose: 1 gm Enoxaparin Sodium (Enoxaparin Sodium 40 Mg/0.4 Ml Syringe) 40 mg SUBCUT Q24H [facility] Last Admin: 12/17/24 18:00 Dose: 40 mg Folic Acid (Folic Acid 1 Mg Tablet) 1 mg PO DAILY [facility] Last Admin: 12/17/24 10:35 Dose: 1 mg Magnesium Hydroxide (Milk Of Magnesia 30 Ml Oral.Susp) 30 ml PO DAILY PRN PRN Reason: Constipation Melatonin (Melatonin 3 Mg Tablet) 6 mg PO BEDTIME PRN PRN Reason: Insomnia Last Admin: 12/16/24 01:26 Dose: 6 mg Sertraline HCl (Sertraline Hcl 25 Mg Tablet) 75 mg PO DAILY [facility] Last Admin: 12/17/24 08:14 Dose: 75 mg Sodium Chloride (0.9 % Sodium Chloride Flush 3 Ml Syringe) 3 ml IVFLUSH QSHIFT [facility] Last Admin: 12/17/24 15:52 Dose: 3 ml Thiamine HCl (Thiamine Hcl 100 Mg Tablet) 100 mg PO DAILY [facility] Last Admin: 12/17/24 10:35 Dose: 100 mg Allergies Allergies Allergy/AdvReac Type Severity Reaction Status Date / Time Influenza Virus Vaccines Allergy Unknown Verified 12/13/24 13:03 Assessment & Plan Assessment & Plan (1) Depression: Status: Acute Code(s): F32.A - Depression, unspecified Plan Patient is a 84-year-old female with a history of alcohol abuse presented from [facility] after complaining that she was too weak to get out of bed. When EMS arrived she was incontinent of urine and there were open alcohol containers in the apartment. In the emergency room workup consistent with likely UTI. Patient will be admitted for treatment of the above medical issues. She does not know reason brought her to the hospital and thought her son might brought her in. She is depressed because of back pain . She is treated for UTI, low sodium and low potasium. Per atteding provideer note, low sodium at baseline. Potasium resume to nornal range. D/t depression, she may benefits to have Zoloft increase up to 100mg daily. We will closely monitor for any side effects, especially sodium level as zoloft potentially can further low sodium level down. Case discuss with on duty WAX BLEACHER-Christy Reis Patient expressed passive SI, no plan/intent at this current time. At this time, I am not sure if she would benefit from IPLOC. Will discuss with krupaam once patient is medically cleared to see if patient meet criteria for IPLOC admission. Total time managing care of this patient today ____ minutes. Patient educated on: medication risk/benefits Informed Consent: further education needed
[2024-12-17 23:26] VITALS: BP 141/62; PULSE 78; RESP 18; TEMP 36.3; O2SAT 95
[2024-12-18 04:00] VITALS: BP 159/82; PULSE 72; RESP 18; TEMP 36.1; O2SAT 97
[2024-12-18 07:59] VITALS: BP 166/80; PULSE 72; RESP 14; TEMP 36.5; O2SAT 97
[2024-12-18 09:40] LABS: Anion Gap 12 (12-20); Blood Urea Nitrogen 5 mg/dL (9-16); Calcium 8.4 mg/dL (8.4-10.2); Carbon Dioxide 24 mmol/L (22-29); Chloride 94 mmol/L (96-108); Creatinine Clr Calc Pharmacy 59.6; Estimated Glomerular Filt Rate > 60; Potassium 3.1 mmol/L (3.3-5.1); Sodium 127 mmol/L (135-145)
--- NOTE | 2024-12-18 11:16 | P.PNNP_ITS ---
Subjective Subjective Date of Service: 12/18/24 Interval history: following for hyponatremia- here with UTI and encephalopathy. patient feels tired, poor appetite. Physical Exam 2 Vital Signs: Vital Signs: Last Vital Signs Temp 97.7 F 12/18/24 07:59 Pulse 72 12/18/24 07:59 Resp 14 12/18/24 07:59 BP 166/80 H 12/18/24 07:59 Pulse Ox 97 12/18/24 07:59 O2 Del Method Room Air 12/17/24 23:26 BMI result Body Mass Index 19.1 Const: General: no acute distress, alert and awake Resp: Effort & Inspection: normal respiratory effort and able to speak in complete sentences Auscultation: clear to auscultation bilaterally Cardio: Rate: regular rate Rhythm: regular rhythm Heart sounds: S1 normal heart sound present and S2 normal heart sound present GI: Palpation (GI): Soft to palpation and nontender Skin: Rashes: no rashes Extrem: General: No edema Objective Data Labs 12/16/24 06:02 12/18/24 08:42 Labs: Laboratory Results - last 24 hr 12/17/24 12/17/24 12/18/24 10:54 11:51 08:42 Hold Purple Top SEE NOTE Sodium 127 L Potassium 3.1 L Chloride 94 L Carbon Dioxide 24 Anion Gap 12 BUN 5 L Creatinine 0.54 Estim Creat Clear Calc 59.6 Estimated GFR > 60 Random Glucose 88 Calcium 8.4 Vitamin B12 666 Folate > 20.0 Urine Osmolality 197 L Microbiology Microbiology Results: Microbiology 12/13/24 16:50 Blood - Venous Blood Culture - Preliminary No growth after 48 hours. 12/13/24 16:48 Blood - Venous Blood Culture - Preliminary No growth after 48 hours. 12/13/24 Unknown Urine clean catch - Clean Catch Midstream Urine Culture - Final Proteus mirabilis Procedures Date of Service Date of Service: 12/18/24 Assessment & Plan Assessment and plan (1) Hyponatremia: Status: Inactive Plan Hyponatremia- seems to be at chronic baseline. May have reset osmostat hyponatremia and so unlikely to have sodium normalize. urine osm 197 - urine is concentrated with low specific gravity and urine sodium <20. TSH and a.m. cortisol unremarkable. Given IVF yesterday for hypovolemia, sodium remains stable. recommend addressing depression and poor appetite, encouraged improved nutritional intake. Will sign off- happy to follow up if new concerns or changes arise. Discussed with Dr Sharp. Time Spent With Patient Time: Total time managing care of this patient today ____ minutes. Progress Note: Quality Stroke Does the patient have a stroke diagnosis?: No
[2024-12-18 12:00] VITALS: BP 152/76; PULSE 73; RESP 18; TEMP 36.8; O2SAT 97
[2024-12-18] MEDS: 0.9 % Sodium Chloride Flush 3 ML SYRINGE IVFLUSH (15:42)
--- NOTE | 2024-12-18 15:50 | P.PNIM_ITS ---
Subjective Subjective Date of Service: 12/18/24 Interval History: hyponatremia Review of Systems sodium levels slightly trending down Physical Exam 2 Vital Signs: Vital Signs: Last Vital Signs Temp 98.2 F 12/18/24 12:00 Pulse 73 12/18/24 12:00 Resp 18 12/18/24 12:00 BP 152/76 H 12/18/24 12:00 Pulse Ox 97 12/18/24 12:00 O2 Del Method Room Air 12/18/24 12:00 BMI result Body Mass Index 19.1 Objective Data Active Medications Acetaminophen (Acetaminophen 325 Mg Tablet) 975 mg PO Q6H PRN PRN Reason: Pain, Mild 1-3,fever,headache Calcium Carbonate (Calcium Carbonate 750 Mg Tab.Chew) 750 mg PO Q4H PRN PRN Reason: Heartburn Ceftriaxone Sodium (Ceftriaxone Sodium 1 Gm Vial) 1 gm IVPUSH Q24H [facility] Last Admin: 12/18/24 15:42 Dose: 1 gm Documented By: CARLOS Enoxaparin Sodium (Enoxaparin Sodium 40 Mg/0.4 Ml Syringe) 40 mg SUBCUT Q24H [facility] Last Admin: 12/17/24 18:00 Dose: 40 mg Documented By: TUSHAR Folic Acid (Folic Acid 1 Mg Tablet) 1 mg PO DAILY [facility] Last Admin: 12/18/24 09:18 Dose: 1 mg Documented By: CARLOS Lidocaine (Lidocaine 4 % Patch Adh..Patch) 2 patch TRANSDERMA DAILY [facility]; Protocol Magnesium Hydroxide (Milk Of Magnesia 30 Ml Oral.Susp) 30 ml PO DAILY PRN PRN Reason: Constipation Melatonin (Melatonin 3 Mg Tablet) 6 mg PO BEDTIME PRN PRN Reason: Insomnia Last Admin: 12/16/24 01:26 Dose: 6 mg Documented By: SEBASTIAN Sertraline HCl (Sertraline Hcl 100 Mg Tablet) 100 mg PO DAILY [facility] On Hold: 12/18/24 12:01 Last Admin: 12/18/24 09:18 Dose: 100 mg Documented By: CARLOS Sodium Chloride (0.9 % Sodium Chloride Flush 3 Ml Syringe) 3 ml IVFLUSH QSHIFT [facility] Last Admin: 12/18/24 15:42 Dose: 3 ml Documented By: CARLOS Thiamine HCl (Thiamine Hcl 100 Mg Tablet) 100 mg PO DAILY [facility] Last Admin: 12/18/24 09:18 Dose: 100 mg Documented By: CARLOS Labs 12/16/24 06:02 12/18/24 08:42 Labs: Laboratory Results - last 24 hr 12/18/24 08:42 Hold Purple Top SEE NOTE Anion Gap 12 Estim Creat Clear Calc 59.6 Estimated GFR > 60 Random Glucose 88 Calcium 8.4 Assessment and Plan (1) Hypokalemia: Status: Acute (2) Acute UTI: Status: Acute Assessment and Plan: 84-year-old female with a history of alcohol abuse presented from [facility] after complaining that she was too weak to get out of bed. When EMS arrived she was incontinent of urine and there were open alcohol containers in the apartment. In the emergency room workup consistent with likely UTI. Patient will be admitted for treatment of same Acute UTI complicated with acute metabolic encephalopathy Mentation improving, seems close to baseline, she lives in independent living facility; sounds concerning at this stage Gontinue ceftriaxone (2) UCx growing sensitive Proteus; blood cultures negative restart sertraline PT eval for possible placement Acute Hypokalemia potassium repleted and resolved. ? right thoracic back area soarness: thoracic spine xray- ch compresion deformities on thoracic spine c6-7,12. pain managment and pt. Acute on chronic hyponatremia Na of 129 , baseline around 130-132 water restriction Hx Alcohol abuse disorder no withdrawal symptoms no indication for phenobarb at this time follow up clinically depression/dec po inatke,decline function : psych eval above d/w family in detail. Full code Lovenox ongoing hospitalization for continued IV antibiotics to treat a UTI that cause mental status change. High risk for outpatient failure Quality Stroke Does the patient have a stroke diagnosis?: No VTE Prior VTE?: No VTE Risk Level:: Medical - moderate - high VTE Device Contraindication: Treatment Not Indicated VTE Drug Contraindication: N/A - Med Ordered
[2024-12-18 15:56] VITALS: BP 171/85; PULSE 72; RESP 16; TEMP 37.1; O2SAT 97
[2024-12-18 19:02] VITALS: BP 160/89; PULSE 95; RESP 15; TEMP 36.6; O2SAT 98
[2024-12-18 23:16] VITALS: BP 140/69; PULSE 58; RESP 16; TEMP 36.8; O2SAT 96
[2024-12-19 03:40] VITALS: BP 120/75; PULSE 89; RESP 18; TEMP 36.8; O2SAT 97
[2024-12-19 07:40] VITALS: BP 122/61; PULSE 82; RESP 18; TEMP 36.6; O2SAT 97
[2024-12-19] MEDS: Lidocaine 4 % Patch ADH..PATCH 2 PATCH TRANSDERMA (08:34)
[2024-12-19] MEDS: 0.9 % Sodium Chloride Flush 3 ML SYRINGE IVFLUSH (08:35)
[2024-12-19 08:42] LABS: Anion Gap 11 (12-20); Blood Urea Nitrogen 6 mg/dL (9-16); Calcium 8.5 mg/dL (8.4-10.2); Carbon Dioxide 24 mmol/L (22-29); Chloride 96 mmol/L (96-108); Creatinine Clr Calc Pharmacy 57.5; Estimated Glomerular Filt Rate > 60; Potassium 3.2 mmol/L (3.3-5.1); Sodium 128 mmol/L (135-145)
--- NOTE | 2024-12-19 10:05 | P.PNNP_ITS ---
Subjective Subjective Date of Service: 12/19/24 Interval history: following for hyponatremia- here with UTI and encephalopathy. patient feels tired, poor appetite. Physical Exam 2 Vital Signs: Vital Signs: Last Vital Signs Temp 97.9 F 12/19/24 07:40 Pulse 82 12/19/24 07:40 Resp 18 12/19/24 07:40 BP 122/61 12/19/24 07:40 Pulse Ox 97 12/19/24 07:40 O2 Del Method Room Air 12/19/24 07:40 BMI result Body Mass Index 19.1 Const: General: no acute distress, alert and awake Resp: Effort & Inspection: normal respiratory effort and able to speak in complete sentences Auscultation: clear to auscultation bilaterally Cardio: Rate: regular rate Rhythm: regular rhythm Heart sounds: S1 normal heart sound present and S2 normal heart sound present GI: Palpation (GI): Soft to palpation and nontender Skin: Rashes: no rashes Extrem: General: No edema Objective Data Labs 12/16/24 06:02 12/19/24 08:08 Labs: Laboratory Results - last 24 hr 12/19/24 08:08 Sodium 128 L Potassium 3.2 L Chloride 96 Carbon Dioxide 24 Anion Gap 11 L BUN 6 L Creatinine 0.56 Estim Creat Clear Calc 57.5 Estimated GFR > 60 Random Glucose 98 Calcium 8.5 Microbiology Microbiology Results: Microbiology 12/13/24 16:50 Blood - Venous Blood Culture - Final No growth after 5 days. 12/13/24 16:48 Blood - Venous Blood Culture - Final No growth after 5 days. 12/13/24 Unknown Urine clean catch - Clean Catch Midstream Urine Culture - Final Proteus mirabilis Procedures Date of Service Date of Service: 12/19/24 Assessment & Plan Assessment and plan (1) Hyponatremia: Status: Inactive Plan Hyponatremia- seems to be at chronic baseline. May have reset osmostat hyponatremia and so unlikely to have sodium normalize. urine osm 197 - urine is concentrated with low specific gravity and urine sodium <20. TSH and a.m. cortisol unremarkable. recommend addressing depression and poor appetite, encouraged improved nutritional intake. Recommend re-starting antidepressents, as underlying cause of hyponatremia seems to be primarily from poor PO intake rather than SIADH; depression is likely contributing to poor appetite and needs to be addressed. Patient is ok to discharge from a renal standpoint. Will sign off- happy to follow up if new concerns or changes arise. Discussed with Dr Sharp. Time Spent With Patient Time: Total time managing care of this patient today ____ minutes. Progress Note: Quality Stroke Does the patient have a stroke diagnosis?: No
--- NOTE | 2024-12-19 11:44 | MHC.CM.PN ---
Addendum entered by Aida Pugh 12/19/24 14:39: Spoke with son Yeison. He requests that Nicolette, wound care center consultant, be the contact centre supervisor. He gives permission to give her information. Original Note: Per MD rounds patient is not cleared for discharge. Plan is for [facility] to assess for IPLOC. Karly Ramirez has been sent a clinical update. They are following for STR. DP pending Psych/[facility] vs STR via BLS.
[2024-12-19 12:00] VITALS: BP 130/87; PULSE 78; RESP 20; TEMP 36.5; O2SAT 97
--- NOTE | 2024-12-19 14:28 | HO.PM.IMPN ---
Subjective Subjective Date of Service: 12/20/24 Interval History: depresison Review of Systems sodium improving says pain also imaproving Physical Exam Vital Signs: Vital Signs: Last Vital Signs Temp 97.7 F 12/19/24 12:00 Pulse 78 12/19/24 12:00 Resp 20 12/19/24 12:00 BP 130/87 12/19/24 12:00 Pulse Ox 97 12/19/24 12:00 O2 Del Method Room Air 12/19/24 12:00 BMI result Body Mass Index 19.1 Appearance: awake,interactive. cvs: rrr, [id number] . res: clear to auscultation ,no rhonchii or wheezing abd: no rebound or guarding ,nt, bs present. ext pulses present , no cyanosis . MS: some soarness right thoracic area neuro: nonfocal. Objective Data Active Medications Acetaminophen (Acetaminophen 325 Mg Tablet) 975 mg PO Q6H PRN PRN Reason: Pain, Mild 1-3,fever,headache Last Admin: 12/19/24 08:34 Dose: 975 mg Documented By: CARLOS Calcium Carbonate (Calcium Carbonate 750 Mg Tab.Chew) 750 mg PO Q4H PRN PRN Reason: Heartburn Ceftriaxone Sodium (Ceftriaxone Sodium 1 Gm Vial) 1 gm IVPUSH Q24H [facility] Last Admin: 12/18/24 15:42 Dose: 1 gm Documented By: CARLOS Enoxaparin Sodium (Enoxaparin Sodium 40 Mg/0.4 Ml Syringe) 40 mg SUBCUT Q24H [facility] Last Admin: 12/18/24 18:31 Dose: 40 mg Documented By: CARLOS Folic Acid (Folic Acid 1 Mg Tablet) 1 mg PO DAILY [facility] Last Admin: 12/19/24 08:34 Dose: 1 mg Documented By: CARLOS Lidocaine (Lidocaine 4 % Patch Adh..Patch) 2 patch TRANSDERMA DAILY [facility]; Protocol Last Admin: 12/19/24 08:34 Dose: 2 patch Documented By: CARLOS Magnesium Hydroxide (Milk Of Magnesia 30 Ml Oral.Susp) 30 ml PO DAILY PRN PRN Reason: Constipation Melatonin (Melatonin 3 Mg Tablet) 6 mg PO BEDTIME PRN PRN Reason: Insomnia Last Admin: 12/16/24 01:26 Dose: 6 mg Documented By: SEBASTIAN Sertraline HCl (Sertraline Hcl 100 Mg Tablet) 100 mg PO DAILY [facility] On Hold: 12/18/24 12:01 Last Admin: 12/18/24 09:18 Dose: 100 mg Documented By: CARLOS Sodium Chloride (0.9 % Sodium Chloride Flush 3 Ml Syringe) 3 ml IVFLUSH QSHIFT [facility] Last Admin: 12/19/24 08:35 Dose: 3 ml Documented By: CARLOS Thiamine HCl (Thiamine Hcl 100 Mg Tablet) 100 mg PO DAILY [facility] Last Admin: 12/19/24 08:34 Dose: 100 mg Documented By: CARLOS Labs 12/16/24 06:02 12/20/24 10:03 Labs: Laboratory Results - last 24 hr 12/19/24 08:08 Anion Gap 11 L Estim Creat Clear Calc 57.5 Estimated GFR > 60 Random Glucose 98 Calcium 8.5 Microbiology Microbiology Results: Microbiology 12/13/24 16:50 Blood Culture - Final Blood - Venous No growth after 5 days. 12/13/24 16:48 Blood Culture - Final Blood - Venous No growth after 5 days. Assessment and Plan (1) Hypokalemia: Status: Acute (2) Acute UTI: Status: Acute Assessment and Plan: 84-year-old female with a history of alcohol abuse presented from [facility] after complaining that she was too weak to get out of bed. When EMS arrived she was incontinent of urine and there were open alcohol containers in the apartment. In the emergency room workup consistent with likely UTI. Patient will be admitted for treatment of same Acute UTI complicated with acute metabolic encephalopathy Mentation improving, seems close to baseline, she lives in independent living facility; sounds concerning at this stage Gontinue ceftriaxone (2) UCx growing sensitive Proteus; blood cultures negative restart sertraline PT eval for possible placement Acute Hypokalemia potassium repleted and resolved. ? right thoracic back area soarness: thoracic spine xray- ch compresion deformities on thoracic spine c6-7,12. pain managment and pt. Acute on chronic hyponatremia Na of 128 , baseline around 130-132 water restriction Hx Alcohol abuse disorder no withdrawal symptoms no indication for phenobarb at this time follow up clinically depression/dec po inatke,decline function : psych eval noted. above d/w family in detail. need bhn clearence for dispo-?need inpatient psych Full code Lovenox ongoing hospitalization for continued IV antibiotics to treat a UTI that cause mental status change. High risk for outpatient failure Quality Stroke Does the patient have a stroke diagnosis?: No VTE Prior VTE?: No VTE Risk Level:: Medical - moderate - high VTE Device Contraindication: Treatment Not Indicated VTE Drug Contraindication: N/A - Med Ordered
[2024-12-19 16:00] VITALS: BP 130/60; PULSE 78; RESP 16; TEMP 37; O2SAT 99
[2024-12-19 19:17] VITALS: BP 156/70; PULSE 76; RESP 18; TEMP 36.1; O2SAT 99
[2024-12-19 23:17] VITALS: BP 151/65; PULSE 70; RESP 16; TEMP 36.6; O2SAT 97
[2024-12-20 03:48] VITALS: BP 161/77; PULSE 64; RESP 20; TEMP 36.6; O2SAT 99
[2024-12-20 07:41] VITALS: BP 188/86; PULSE 63; RESP 16; TEMP 37.3; O2SAT 99
--- NOTE | 2024-12-20 08:52 | MHC.CARE ---
Pt does not meet the criteria for IPLOC and is cleared by the CARE team. Pt is referred to case management.
[2024-12-20] MEDS: Potassium Chloride ER 20 MEQ TAB.ER.PRT PO ×3 (09:10→14:05)
[2024-12-20] MEDS: 0.9 % Sodium Chloride Flush 3 ML SYRINGE IVFLUSH ×3 (09:10→21:48)
[2024-12-20 10:22] LABS: Potassium 3.1 mmol/L (3.3-5.1)
[2024-12-20 11:08] VITALS: BP 150/75
--- NOTE | 2024-12-20 12:59 | MHC.CM.PN ---
Addendum entered by Haydee Mckeon 12/21/24 11:16: PT WILL DC TO [facility] TODAY AT 1500 VIA [facility] BLS MACHINE ICER, EDWAR, NOTIFIED VIA T/C AND CONFIRMS SHE WILL UPDATE PTS FAMILY Original Note: PT MEDICALLY CLEAR TO DC TO STR, HOWEVER, SNF IS UNABLE TO ACCEPT BEFORE TOMORROW DUE TO STAFFING PTS MACHINE ICER, EDWAR [phone] NOTIFIED AND SHE WILL UPDATE FAMILY PLAN IS FOR PT TO DC TO [facility] TOMORROW VIA BLS
[2024-12-20 15:26] VITALS: BP 127/60; PULSE 86; RESP 15; TEMP 36.1; O2SAT 98
--- NOTE | 2024-12-20 15:40 | HO.PM.IMPN ---
Subjective Subjective Date of Service: 12/20/24 Interval History: hyponatremia Review of Systems seems more awake denies pain Review of Systems: Yes all other systems are reviewed and are negative Physical Exam Vital Signs: Vital Signs: Last Vital Signs Temp 97.0 F 12/20/24 15:26 Pulse 86 12/20/24 15:26 Resp 15 12/20/24 15:26 BP 127/60 12/20/24 15:26 Pulse Ox 98 12/20/24 15:26 O2 Del Method Room Air 12/20/24 15:26 BMI result Body Mass Index 19.1 Appearance: awake,interactive. cvs: rrr, [id number] . res: clear to auscultation ,no rhonchii or wheezing abd: no rebound or guarding ,nt, bs present. ext pulses present , no cyanosis . MS: some soarness right thoracic area neuro: nonfocal Objective Data Active Medications Acetaminophen (Acetaminophen 325 Mg Tablet) 975 mg PO Q6H PRN PRN Reason: Pain, Mild 1-3,fever,headache Last Admin: 12/20/24 09:10 Dose: 975 mg Documented By: ZULEMA Calcium Carbonate (Calcium Carbonate 750 Mg Tab.Chew) 750 mg PO Q4H PRN PRN Reason: Heartburn Ceftriaxone Sodium (Ceftriaxone Sodium 1 Gm Vial) 1 gm IVPUSH Q24H [facility] Last Admin: 12/19/24 15:24 Dose: 1 gm Documented By: CARLOS Enoxaparin Sodium (Enoxaparin Sodium 40 Mg/0.4 Ml Syringe) 40 mg SUBCUT Q24H [facility] Last Admin: 12/19/24 18:06 Dose: 40 mg Documented By: CARLOS Folic Acid (Folic Acid 1 Mg Tablet) 1 mg PO DAILY [facility] Last Admin: 12/20/24 09:10 Dose: 1 mg Documented By: ZULEMA Lidocaine (Lidocaine 4 % Patch Adh..Patch) 2 patch TRANSDERMA DAILY [facility]; Protocol Last Admin: 12/20/24 09:11 Dose: Not Given Documented By: ZULEMA Non-Admin Reason: Patient Refused Magnesium Hydroxide (Milk Of Magnesia 30 Ml Oral.Susp) 30 ml PO DAILY PRN PRN Reason: Constipation Melatonin (Melatonin 3 Mg Tablet) 6 mg PO BEDTIME PRN PRN Reason: Insomnia Last Admin: 12/16/24 01:26 Dose: 6 mg Documented By: SEBASTIAN Sertraline HCl (Sertraline Hcl 100 Mg Tablet) 100 mg PO DAILY [facility] Last Admin: 12/18/24 09:18 Dose: 100 mg Documented By: CARLOS Sodium Chloride (0.9 % Sodium Chloride Flush 3 Ml Syringe) 3 ml IVFLUSH QSHIFT [facility] Last Admin: 12/20/24 09:10 Dose: 3 ml Documented By: ZULEMA Thiamine HCl (Thiamine Hcl 100 Mg Tablet) 100 mg PO DAILY [facility] Last Admin: 12/20/24 09:10 Dose: 100 mg Documented By: ZULEMA Labs 12/16/24 06:02 12/20/24 10:03 Assessment and Plan (1) Acute UTI: Status: Acute (2) Depression: Status: Acute Plan 84-year-old female with a history of alcohol abuse presented from [facility] after complaining that she was too weak to get out of bed. When EMS arrived she was incontinent of urine and there were open alcohol containers in the apartment. In the emergency room workup consistent with likely UTI. Patient will be admitted for treatment of same Acute UTI complicated with acute metabolic encephalopathy Mentation improving, seems close to baseline, she lives in independent living facility; sounds concerning at this stage Gontinue ceftriaxone (6) UCx growing sensitive Proteus; blood cultures negative restart sertraline PT eval for possible placement Acute Hypokalemia potassium repleted and resolved. ? right thoracic back area soarness: thoracic spine xray- ch compresion deformities on thoracic spine c6-7,12. pain managment and pt. Acute on chronic hyponatremia Na of 129 , baseline around 130-132 water restriction Hx Alcohol abuse disorder follow up [facility] protocol no indication for phenobarb at this time follow up clinically depression/dec po inatke,decline function : psych eval bhn cleared Full code Lovenox Requires ongoing hospitalization-placement Quality Stroke Does the patient have a stroke diagnosis?: No VTE Prior VTE?: No VTE Risk Level:: Medical - moderate - high VTE Device Contraindication: Treatment Not Indicated VTE Drug Contraindication: N/A - Med Ordered
[2024-12-20 19:38] VITALS: BP 157/74; PULSE 72; RESP 17; TEMP 36.3; O2SAT 98
[2024-12-21] VITALS: BP 165/91; PULSE 86; RESP 16; TEMP 36.3; O2SAT 98
[2024-12-21 03:37] VITALS: BP 168/90; PULSE 75; RESP 16; TEMP 36.2; O2SAT 99
[2024-12-21 07:52] VITALS: BP 156/88; PULSE 78; RESP 18; TEMP 36.1; O2SAT 99
[2024-12-21] MEDS: 0.9 % Sodium Chloride Flush 3 ML SYRINGE IVFLUSH (08:21)
[2024-12-21 08:42] LABS: Anion Gap 12 (12-20); Blood Urea Nitrogen 6 mg/dL (9-16); Calcium 9.1 mg/dL (8.4-10.2); Carbon Dioxide 27 mmol/L (22-29); Chloride 98 mmol/L (96-108); Creatinine Clr Calc Pharmacy 48.0; Estimated Glomerular Filt Rate > 60; Potassium 4.2 mmol/L (3.3-5.1); Sodium 133 mmol/L (135-145)
--- NOTE | 2024-12-21 11:11 | PM.DS ---
DS: Providers Provider Date of Service: 12/21/24 Date of admission: 12/13/24 16:31 Date of discharge: 12/21/24 Primary care physician: Rosa Maria Mora PA-C Consults: 12/16/24 08:13 Consult to Nephrology Routine Consulting Provider: [facility] Reason for consultation: hyponatremia Has provider been notified: No 12/17/24 10:31 Consult to Psychiatry Routine Consulting Provider: [facility] Reason for consultation: Depression/hyponatremia 12/19/24 11:23 Inpt CARE Team Crisis Consult Routine Comment: Reason for consultation: medically clear Attending physician on discharge: Jace Mancia Discharging clinician: Jace Mancia DS: Diagnosis Discharge Diagnosis (1) Acute UTI: Status: Acute (2) Depression: Status: Acute DS: Summary Hospital Course Hospital Course: HPI Hospital course: 84-year-old female with a history of alcohol abuse presented from [facility] after complaining that she was too weak to get out of bed. When EMS arrived she was incontinent of urine and there were open alcohol containers in the apartment. In the emergency room workup consistent with likely UTI. Patient will be admitted for treatment of same Acute UTI complicated with acute metabolic encephalopathy Mentation improving, seems close to baseline, she lives in independent living facility; sounds concerning at this stage. started on ceftriaxone. UCx growing sensitive Proteus mirabilis senstive to cefriaxone ; blood cultures negative. Complete course of antibiotics-switched to Ceftin upon discharge. Acute Hypokalemia Repleted and resolved, limited potassium supply was given for 3 more days, monitor BMP closely. ? right thoracic back area soarness: thoracic spine xray- ch compresion deformities on thoracic spine c6-7,12. pain managment -Tylenol/lidocaine patch. vitamin d levels pending Acute on chronic hyponatremia Na of 133, baseline around 130-132 water restriction -Liberalize fluid intake to 1800 mL per day, monitor BMP. tsh ,cortisol levels fine and cxr -normal. Hx Alcohol abuse disorder Abstain from alcohol, continue thiamine folic acid. depression/dec po inatke,decline function : Cleared by PHN, seen by psych sertraline adjusted to 100 mg daily. elevated bp : flactuating 120-150's : insetting with pain. moniter bp in rehab if consistently above 140's -consider antihypertensive medication. plan: vitamin d levels pending follow up outpatient. moniter bmp in 1 week. sertarline adjusted to 100 mg qd ceftin 250 mg po bidx3 days potassium 8 meq po qdx3 days. Advised to abstain from alcohol, continue thiamine folic acid. Pain is better controlled with Tylenol and lidocaine patch. Above management discussed with the patient's son earlier Yeison and top case assembler nanette in detail length she understand and in agreement with the above plan, time spent 50 minutes and 50% time spent on counseling. Time Attestation Total time managing care of this patient today: 40 mintues. Discharge Coordination Time (in mins): 40 min Quality: Safe Use of Opioids Does Pt have an Active Cancer Diagnosis on the Problem List?: No Quality: Stroke Does the patient have a stroke diagnosis?: No Physical Exam Vital Signs: Vital Signs: Last Vital Signs Temp 96.9 F 12/21/24 07:52 Pulse 78 12/21/24 07:52 Resp 18 12/21/24 07:52 BP 156/88 H 12/21/24 07:52 Pulse Ox 99 12/21/24 07:52 O2 Del Method Room Air 12/21/24 07:52 BMI result Body Mass Index 19.1 Appearance: aox2,awake,interactive,as per her top case assembler miss fitzpatrick(near to baseline). cvs: rrr, [id number] . res: clear to auscultation ,no rhonchii or wheezing abd: no rebound or guarding ,nt, bs present. ext pulses present , no cyanosis . MS:says no soarness when asked today. neuro: nonfocal DS: Data Data Completed and Pending Labs on day of discharge: Laboratory Results - last 24 hr 12/21/24 08:06 Hold Purple Top SEE NOTE Sodium 133 L Potassium 4.2 D Chloride 98 Carbon Dioxide 27 Anion Gap 12 BUN 6 L Creatinine 0.67 Estim Creat Clear Calc 48.0 Estimated GFR > 60 Random Glucose 91 Calcium 9.1 D Imaging Chest x-ray: My impression: cxr: IMPRESSION: 1. No consolidation. head ct: IMPRESSION: 1. No acute intracranial findings. thoracic spine xray: IMPRESSION: Redemonstration of mild chronic superior endplate compression deformities of T6 and T7 vertebral bodies and severe compression deformity of T12 vertebral body, unchanged in the interval. Mild dextrocurvature. Slightly exaggerated kyphosis at T12. Discharge Plan Discharge Anticipated Discharge Date/Time: 12/21/24 11:00 Patient Disposition: Xfer SNF Discharge Diagnosis: uti Referrals: Karly Ramirez [Outside] - 1 Week Rosa Maria Mora PA-C [Primary Care Provider, [facility]] - 1 Week Discharge Medications: New folic acid 1 mg Tablet 1 mg PO DAILY Qty: 1 0RF thiamine mononitrate (vit B1) 100 mg Tablet 100 mg PO DAILY Qty: 1 0RF lidocaine [Lidocaine Pain Relief] 4 % Adhesive Patch,Medicated 2 patch transdermal DAILY Qty: 1 0RF Protocol: Apply to: Apply to: Affected area cefuroxime axetil 250 mg Tablet 250 mg PO Q12H Qty: 6 0RF potassium chloride [Klor-Con 8] 8 mEq tablet extended release 8 meq PO DAILY Qty: 3 0RF Changed sertraline 50 mg tablet 100 mg PO DAILY Qty: 1 0RF acetaminophen 325 mg Tablet 975 mg PO Q6H PRN (Reason: Pain) Qty: 1 0RF Discharge Orders: Discharge Order (Routine); Ordered 12/21/24 Ordered By: Jace Mancia Diet: Advance to usual diet Activity on Discharge: As tolerated Stand Alone Forms: Patient Portal Discharge page Print Language: Faroese Care Plan Goals: as below. Health Concerns: As above. Plan of Treatment: Vitamin-D levels pending moniter jorge luis in 1 week. sertarline adjusted to 100 mg qd ceftin 250 mg po bidx3 days potassium 8 meq po qdx3 days. Advised to abstain from alcohol, continue thiamine folic acid. Pain is better controlled with Tylenol and lidocaine patch. Assessment: As above.
[2024-12-21 11:34] VITALS: BP 139/78; PULSE 79; RESP 18; TEMP 36.3; O2SAT 98
[2024-12-21 14:44] LABS: Vitamin D 25-OH, D2 <4 ng/mL; Vitamin D 25-OH, D3 29 ng/mL; Vitamin D 25-OH, Total 29 ng/mL (30-100)
[2024-12-21 15:02] VITALS: BP 138/60; PULSE 86; RESP 16; TEMP 36.3; O2SAT 97
--- NOTE | 2024-12-21 15:16 | PC.NURSE ---
late entry- 1200- Pt refused to get OOB and refused to use toilet in [facility]. Inc large amount of urine and stool. ![id number]- Pt agreed to go to [facility] to void, very unstaedy using walker and 2 assist.
== END 2024-12-21 15:16 | disposition skilled nursing facility (03) | DRG 689 ==
LOC: HO.ED 16:42 → HO.EDOVER 19:13 → HO.S3 23:34
PROVIDERS: Hospitalist; Internal Medicine Critical Care Medicine; Physician Assistant Medical; Registered Nurse Emergency; Student in an Organized Health Care Education/Training Program; Admitting Provider Student in an Organized Health Care Education/Training Program; Emergency Provider Emergency Medicine; PCP Physician Assistant; Visit Provider Internal Medicine
DX: N39.0 Urinary tract infection, site not specified (principal); G93.41 Metabolic encephalopathy; E87.1 Hypo-osmolality and hyponatremia; F10.10 Alcohol abuse, uncomplicated; I10 Essential (primary) hypertension; E87.6 Hypokalemia; F17.210 Nicotine dependence, cigarettes, uncomplicated; M43.8X6 Other specified deforming dorsopathies, lumbar region; F32.A Depression, unspecified; B96.4 Proteus (mirabilis) (morganii) as the cause of diseases classified elsewhere; Z71.6 Tobacco abuse counseling; Z20.822 Contact with and (suspected) exposure to COVID-19; Z79.899 Other long term (current) drug therapy
CPT/HCPCS: 36415; 70450; 71046; 72072; 80048; 80053; 80307; 81001; 81003; 82140; 82306; 82533; 82607; 82746; 83605; 83735; 83935; 84132; 84300; 84443; 84484; 84550; 85025; 87040; 87086; 87088; 87186; 87637; 93005; 97162; 97530; 99285; J0696; J1650; J3480; S9485

== ENCOUNTER → 2024-12-13 13:05 | Outpatient (BNV) | payer MEDICARE, OTHER, SELFPAY | PROVIDERS: Admitting Provider Student in an Organized Health Care Education/Training Program; Emergency Provider Emergency Medicine; PCP Physician Assistant; Visit Provider Internal Medicine Cardiovascular Disease | DX: I49.1 Atrial premature depolarization (principal) | CPT/HCPCS: 93010 ==

== ENCOUNTER → 2024-12-13 13:05 | Outpatient (BNV) | payer MEDICARE, OTHER, SELFPAY | PROVIDERS: Emergency Provider Emergency Medicine; PCP Physician Assistant; Visit Provider Radiology Diagnostic Radiology | DX: R41.82 Altered mental status, unspecified (principal) | CPT/HCPCS: 70450; 71046 ==

== ENCOUNTER → 2024-12-13 13:46 | Outpatient (BNV) | payer MEDICARE, OTHER, SELFPAY | PROVIDERS: Emergency Provider Emergency Medicine; PCP Physician Assistant; Visit Provider Hospitalist | DX: E87.6 Hypokalemia (principal); N39.0 Urinary tract infection, site not specified; R41.0 Disorientation, unspecified | CPT/HCPCS: 99223; 99231; 99232; 99239; 99499 ==

== ENCOUNTER 2024-12-13 16:31 | Outpatient (BNV) | payer MEDICARE, OTHER, SELFPAY | END 2024-12-16 18:11 | PROVIDERS: Admitting Provider Student in an Organized Health Care Education/Training Program; Emergency Provider Emergency Medicine; PCP Physician Assistant; Visit Provider Student in an Organized Health Care Education/Training Program | DX: M54.6 Pain in thoracic spine (principal) | CPT/HCPCS: 72072 ==

== ENCOUNTER → 2024-12-13 16:31 | Outpatient (BNV) | payer MEDICARE, OTHER, SELFPAY | PROVIDERS: Admitting Provider Student in an Organized Health Care Education/Training Program; Emergency Provider Emergency Medicine; PCP Physician Assistant; Visit Provider Nurse Practitioner Psychiatric/Mental Health | DX: F32.1 Major depressive disorder, single episode, moderate (principal) | CPT/HCPCS: 99232 ==

== ENCOUNTER → 2024-12-13 16:31 | Outpatient (BNV) | payer MEDICARE, OTHER, SELFPAY | PROVIDERS: Admitting Provider Student in an Organized Health Care Education/Training Program; Emergency Provider Emergency Medicine; PCP Physician Assistant; Visit Provider Nurse Practitioner Family | DX: E87.1 Hypo-osmolality and hyponatremia (principal) | CPT/HCPCS: 99221; 99231 ==

== ENCOUNTER 2025-01-16 15:33 | Emergency (ER) | payer MEDICARE, OTHER, SELFPAY ==
--- NOTE | ~2025-01-16 | XR_ITS ---
EXAMINATION: XR CHEST CLINICAL INFORMATION: weakness, failure to thrive, elevated WBC count COMPARISON: None available. TECHNIQUE: Frontal view of the chest was obtained. FINDINGS: The cardiac, hilar, and mediastinal contours are normal. Calcification of the mitral annulus. Aortic mural calcification and tortuosity. Lungs demonstrate minor atelectasis in the left base, similar to the prior exam. Lungs otherwise clear. No pneumothorax or effusion. No focal osseous or soft tissue abnormality. XR/XR chest 1V IMPRESSION: No active pulmonary disease. Electronically signed by: Yoni Oconnor MD 01/16/2025 04:48 PM EDT
--- NOTE | ~2025-01-16 | CT_ITS ---
CLINICAL HISTORY: increased AMS, ?falls CT head without contrast Comparison: CT/SR - CT HEAD/BRAIN WO IV CON - 12/13/24 13:46 EDT Findings: No intra-axial mass, midline shift, hydrocephalus, or acute hemorrhage. Age appropriate cerebral volume loss. Patchy low-density within the periventricular and subcortical white matter. Small chronic left basal ganglia infarct, as before. The visualized paranasal sinuses and mastoid air cells are normal. The orbits are unremarkable. There is no acute fracture. IMPRESSION: 1. No acute intracranial findings. This document has been electronically signed by: Tereso Quintero MD on 01/16/2025 20:43:18
--- NOTE | ~2025-01-16 | CT_ITS ---
CLINICAL HISTORY: Low Back Pain; Unexplained Elev WBC Weight Loss CT abdomen and pelvis with contrast Comparison: CT - CT ABDOMEN PELVIS W IV CON - 01/16/25 19:[address]/REG/SR - CT ABDOMEN PELVIS WO IV CON - 08/05/23 07:46 EST Findings: The lung bases are clear. Liver is within normal limits. Hepatic contour is nodular. Solid organs are otherwise within normal limits. No bowel obstruction, pneumoperitoneum, or pneumatosis. Small hiatal hernia. Pelvic contents unremarkable. Appendix is not seen. Multilevel disc space narrowing and endplate osteophyte formation, as well as facet hypertrophy. Mild subacute appearing wedging L2, L3, and L4. Severe chronic appearing T12 compression fracture. IMPRESSION: 1. Subacute appearing lumbar compression fractures. Further assessment with MRI is recommended. 2. Small hiatal hernia. 3. Cirrhosis. This document has been electronically signed by: Tereso Quintero MD on 01/16/2025 20:50:09
--- NOTE | 2025-01-16 15:49 | ED_ITS ---
HPI - General Adult General Chief complaint: Recheck/Abnormal Lab/Rx Stated complaint: ABNORMAL LABS Time Seen by Provider: 01/16/25 15:42 Source: RN notes reviewed and other (Care nurse stadium manager Nicolette) Mode of arrival: EMS Limitations: altered mental status (severe dementia) History of Present Illness ED Provider: Courtney Sheehan PA-C HPI narrative: 84-year-old female with medical history of dementia, alcohol use disorder presents to the ED by EMS due to increased altered mental status, failure to thrive, and increased serum WBC that was found today after evaluation at [facility]. Patient is poor historian, has no insight to her physical well-being, patient is accompanied by BOARD MACHINE [employer] UP OPERATOR who works for patient through a company called [employer]. I spoke with RN Nicolette who works for patient through the same company who provides care for her and knows patient well. Nicolette states patient was recently admitted to [facility] due to UTI and has been back at her residence at [place] for approximately 2 weeks with failure to thrive, stating her appetite has decreased, patient unable to ambulate on her own, increased urinary incontinence, and increased altered mental status. Patient was recently seen by her primary care physician on 01/13 and has follow up at the end of this month. Patient was recently had increase of sertraline, this dose has been decreased back down to 50 mg a day due to diarrhea concerns. Nicolette states patient has history of alcohol use but is adamant patient has not had any alcohol for approximately 4 weeks. Patient has been complaning of back pain and stating she has been falling but there is no skin changes and patient has not been found down. Patient states she has no physical complaints, and is only oriented to self. Related Data Previous Rx's ?Medication ?Instructions ?Recorded acetaminophen 325 mg tablet 975 mg (3 x 325 mg) PO Q6H PRN 12/21/24 Pain #1 tab folic acid 1 mg tablet 1 mg PO DAILY #1 tab 5 lidocaine 4 % topical patch 2 patch transdermal DAILY #1 ea 12/21/24 (Lidocaine Pain Relief) potassium chloride 8 mEq 8 meq PO DAILY #3 tabs 12/21 tablet,extended release (Klor-Con) sertraline 50 mg tablet 100 mg (2 x 50 mg) PO DAILY #1 tab 07/13/25 thiamine mononitrate (vit B1) 100 100 mg PO DAILY #1 t ab 12/21/ mg tablet cefuroxime axetil 250 mg tablet 250 mg PO BID 4 days # 8 tabs 01/18/25 Allergies Allergy/AdvReac Type Severity Reaction Status Date / Time Influenza Virus Vaccines Allergy Unknown Verified 01/16/25 16:23 Review of Systems 2 Review of Systems: Can not obtain accurate ROS due to severe dementia, patient states she does not have any physical complaints at this time. Yes all other systems are reviewed and are negative [facility] Past Medical History Medical History Alcohol abuse Social History Social History Household Members: Other Household Members Other:: [facility] Housing: Assisted Living Facility Do you presently have visiting nurse or other home services: No Alcohol intake: current Alcohol intake frequency: 0-2 drinks per day Alcohol type: beer Patient Tobacco Use Status: Current someday Tobacco user Tobacco use type: Cigarette Cigarette Packs Per Day: 0 Cigarettes Per Day: 0 Years Smoked: 30 Smoked in Last 30 Days: Yes e-Cigarette/Vaping Use: Never Used Second Hand Smoke Exposure: No (refused) Use of substances other than those prescribed or required for medical reasons: No Advance Directives: No Advance Directives Information Provided: No Do you have a plan to hurt others: No Plan service: No Physical Exam ED Vital Signs: Vital Signs - 24 hr 01/17/25 14:50 01/17/25 19:54 01/18/25 05:01 Temperature 96.5 F L 98.1 F 98.2 F Pulse Rate 61 89 74 Respiratory Rate 11 L 16 16 Blood Pressure 110/69 131/70 115/60 Pulse Oximetry 95 97 99 Oxygen Delivery Method Room Air Room Air Room Air 01/18/25 08:10 01/18/25 12:49 Temperature 98.2 F 98.2 F Pulse Rate 86 86 Respiratory Rate 14 14 Blood Pressure 161/102 H 161/102 H Pulse Oximetry 99 99 Oxygen Delivery Method Room Air Room Air BMI result Body Mass Index 18.9 GENERAL APPEARANCE: ?AxOx1, generally well-appearing, no acute distress. HEENT: ?NC, AT. MMM. EOMI, clear conjunctiva, oropharynx clear. NECK: ?Supple without lymphadenopathy.? No stiffness or restricted ROM. HEART:? Normal rate and regular rhythm, normal S1/S2, no m/r/g LUNGS:? CTAB, moving air well. No crackles or wheezes are heard. ABDOMEN: ?Soft, nontender, nondistended with good bowel sounds heard. BACK: No CVAT, no obvious deformity. TTP over bilateral lumbar paraspinal muscles, no midline spinal tenderness, no bony step-offs, no anatomical abnormalities palpated, no overlying skin changes. EXTREMITIES: ?Without cyanosis, clubbing or edema. NEUROLOGICAL: ?Grossly nonfocal. Alert and oriented, moving all 4 extremities. Patient unable to ambulate on her own, uses walker and assistance to ambulate Skin: ?Warm and dry without any rash. Course Course Course Narrative: 10:14 PM 01/16/2025 (Nba COOMBS): The patient was signed out to this provider at shift change. In summary the patient is an 84-year-old female with a history of dementia and alcohol use disorder, presenting to the ED from her assisted living facility after seeing her PCP on 01/13 for family concern of increased confusion compared to baseline. The patient was recently treated at this facility for a UTI, discharged approximately 2 weeks ago, the patient's family was concerned for a recurrent UTI, patient's PCP obtained outpatient lab work which resulted today showing elevated WBC and patient was sent to the ED for evaluation. Patient has also been reporting frequent falls, however staff reports none of these falls have been witnessed. The patient is endorsing low back pain. The patient was signed out pending laboratory evaluation, CT head and neck, and CT abdomen and pelvis/lumbar spine. At this time the patient's laboratory evaluation has resulted and redemonstrates leukocytosis, no anemia, JOHNY, or severe electrolyte abnormality however there is mild hyponatremia noted of 131. The patient's urinalysis does show trace blood, positive nitrites, positive leukocyte esterase, and WBCs with 4+ bacteria. Given the presence of nitrites the patient's urinalysis likely represents acute UTI rather than colonization. The patient's CT head has resulted and showed no acute intracranial pathology the patient's abdominal CT shows no acute intra-abdominal pathology but does demonstrate subacute fractures of L2, L3, and L4, as well as a chronic appearing T12 compression fracture. At this time the patient will be treated with antibiotics for UTI, we will also provide IV fluid hydration for mild hyponatremia of 131. The patient will be admitted to ED observation status due to UTI with recurrent falls and newly diagnosed subacute compression fractures with associated pain. Reevaluation(s) Reevaluation #1: Time: 08:30 Date: 01/17/25 Provider: CORIN Reed received sign-out with the patient in stable condition. Patient in physician observation for case management needs. No acute events reported overnight. VS stable. Patient is pending placement at facility/pending PT/CM eval. Will continue to monitor. Currently this 84-year-old female who has a history of dementia, alcohol use disorder, recent UTI with hospital admission, presents from facility for mental status changes and suspected UTI. Currently the patient is resting comfortably however it does report diffuse generalized pain which apparently is baseline. Urinalysis consistent with UTI, previous culture grew Proteus mirabilis sensitive to cephalosporins. Patient has received IV ceftriaxone. We will transitioned to Ceftin 250 mg b.i.d. for 5 days. Medications have been reconciled. Based on the patient's previous hospital admission, she was listed as a full code on December 13, 2024. No additional paperwork is available to indicate otherwise. Reviewed all labs and imaging, including subacute lumbar fractures. Case management continues. JS ? Reevaluation #2: Physician observation continued. Uneventful night. Vital signs stable. No complaints from nursing overnight. Med reconciliation reviewed and done. Pending disposition. Will continue to monitor. Reevaluation #3: Patient will be discharged to [place] today, her son will pick her up at approximately 13:00. She has been medically cleared. Advised to return with any new or worsening symptoms Educated patient on diagnosis and treatment plan, answered all question, patient verbalizes understanding. At this time patient will be discharged home, advised to return with new or worsening symptoms. Educated on worrisome signs and symptoms and when to return. At this time I feel comfortable discharge home. Medications Administered Generic Name Dose Route Start Last Admin Trade Name Freq PRN Reason Stop Dose Admin Acetaminophen 975 mg 01/17/25 08:59 01/18/25 09:46 Acetaminophen 325 Mg Tablet PO 975 mg Q6H PRN Administration Pain, Moderate(Pain Scale 4-6) Cefuroxime Axetil 250 mg 01/17/25 09:00 01/18/25 09:47 Cefuroxime Axetil 250 Mg Tablet PO 01/22/25 08:59 250 mg BID BARBARA Administration Folic Acid 1 mg 01/17/25 09:00 01/18/25 09:46 Folic Acid 1 Mg Tablet PO 1 mg DAILY BARBARA Administration Lidocaine 2 patch 01/17/25 09:00 01/18/25 09:46 Lidocaine 4 % Patch Adh..Patch TRANSDERMA 2 patch DAILY BARBARA Administration Protocol Potassium Chloride 10 meq 01/18/25 09:00 01/18/25 09:46 Potassium Chloride Er 10 Meq Tablet.Er PO 10 meq DAILY BARBARA Administration Sertraline HCl 100 mg 01/17/25 09:00 01/18/25 09:47 Sertraline Hcl 100 Mg Tablet PO 100 mg DAILY BARBARA Administration Thiamine HCl 100 mg 01/17/25 09:00 01/18/25 09:46 Thiamine Hcl 100 Mg Tablet PO 100 mg DAILY BARBARA Administration Discontinued Medications Generic Name Dose Route Start Last Admin Trade Name Freq PRN Reason Stop Dose Admin Acetaminophen 975 mg 01/16/25 22:20 01/16/25 22:49 Acetaminophen 325 Mg Tablet PO 01/16/25 22:21 975 mg ONCE ONE Administration Ceftriaxone Sodium 1 gm 01/16/25 22:20 01/16/25 22:53 Ceftriaxone Sodium 1 Gm Vial IVPUSH 01/16/25 22:21 1 gm ONCE ONE Administration Sodium Chloride 1,000 mls @ 999 mls/hr 01/16/25 22:30 01/17/25 02:48 Ns IV 01/16/25 23:30 Infused .Q1H1M BARBARA Infusion Iohexol 85 ml 01/16/25 20:13 01/16/25 20:14 Iohexol 350 Mg/Ml 100 Ml Infus..Btl IV 01/16/25 20:14 85 ml ONCE ONE Administration Lidocaine 1 patch 01/16/25 22:20 01/16/25 22:53 Lidocaine 4 % Patch Adh..Patch TRANSDERMA 01/16/25 22:21 1 patch ONCE ONE Administration Protocol Medical Decision Making Medical Decision Making MDM Narrative: 84-year-old female with medical history of dementia, alcohol use disorder presents to the ED by EMS due to increased altered mental status, failure to thrive, and increased serum WBC that was found today after evaluation at [facility]. Patient is poor historian, has no insight to her physical well-being, patient is accompanied by [facility] who works for patient through a company called [employer]. I spoke with RN Nicolette who works for patient through the same company who provides care for her and knows patient well. Nicolette states patient was recently admitted to [facility] due to UTI and has been back at her residence at [place] for approximately 2 weeks with failure to thrive, stating her appetite has decreased, patient unable to ambulate on her own using walker and 1 on 1 assistance, increased urinary incontinence, lumbar back pain, and altered mental status. Patient was recently seen by her primary care physician on 01/13 and has follow up at the end of this month. Patients sertraline was recently increased to 100 mg daily, now decreased to 50 mg daily due to issues with diarrhea. Nicolette states patient has history of alcohol use but is adamant patient has not had any alcohol for approximately 4 weeks. Patient has been complaining of back pain and stating she has been falling but Nicolette states there are no skin changes present and patient has not been found down. Nicolette also states patient has had a 20lb weight loss since 09/15/24. Patient states she has no physical complaints, and is only oriented to self. VSS, BP of 138/65, pulse rate is 82 beats per minute, respiratory rate is 16, afebrile with oral temp of 98.3?, O2 saturation 98% on room air. Patient does not have good insight to her physical well-being, is oriented to self only. Plan for labs, UA, EKG, CXR, CT head/brain, CT lumbar spine for further evaluation Differential Diagnosis Differential Diagnoses: The differential diagnosis associated with the presentation includes ICH Cauda equina Electrolyte imbalance UTI Lumbar back strain Failure to thrive Admission/Observation Consideration of admission/observation: Escalation of care including admission/observation considered Lab Data [facility] Lab Attestation statement: I reviewed the patient's lab results. 01/16/25 18:07 01/16/25 18:07 Labs: Lab Results 01/16/25 01/16/25 01/16/25 Range/Units 17:45 18:07 19:04 WBC 16.7 H (4.8-10.8) X10*3/uL RBC 3.74 L (4.20-5.50) X10*6/uL Hgb 12.5 (12.0-16.0) g/dl Hct 35.4 L (37.0-47.0) % MCV 94.7 (80.0-98.0) fL MCH 33.4 H (27.0-33.0) pg MCHC 35.3 H (31.0-35.0) g/dl RDW 13.8 (11.0-16.0) % Plt Count 484 H (160-400) X10*3/uL MPV 8.2 L (9.4-12.3) fL Immature Gran % (Auto) 1.0 H (0.0-0.4) % Neut % (Auto) 73.6 H (45-73) % Lymph % (Auto) 16.6 L (20-40) % [place] % (Auto) 7.2 (2-11) % Eos % (Auto) 1.1 (0-4) % Baso % (Auto) 0.5 (0-2) % Lymph # (Auto) 2.8 (1.2-4.9) X10*3/uL [place] # (Auto) 1.2 (0.1-1.2) X10*3/uL Eos # (Auto) 0.2 (0.0-0.4) X10*3/uL Baso # (Auto) 0.1 (0.0-0.2) X10*3/uL Abs Immat Gran (auto) 0.17 H (0.00-0.03) X10*3/uL Absolute Neuts (auto) 12.3 H (2.0-8.3) x10*3/uL Absolute Nucleated RBC 0.000 (0.0-0.012) X10*3/uL Nucleated RBC % (auto) 0.0 (0.0-0.2) /100WBC Sodium 131 L (135-145) mmol/L Potassium 4.1 (3.3-5.1) mmol/L Chloride 99 (96-108) mmol/L Carbon Dioxide 24 (22-29) mmol/L Anion Gap 12 (12-20) BUN 10 (9-16) mg/dL Creatinine 0.60 (0.5-1.4) mg/dL Estim Creat Clear Calc 53.1 Estimated GFR > 60 Random Glucose 84 (60-115) mg/dL Calcium 8.0 L D (8.4-10.2) mg/dL Magnesium 1.8 (1.6-2.6) mg/dL Total Bilirubin 0.6 (0.0-1.0) mg/dL AST 22 (5-31) U/L ALT 7 (0-31) U/L Alkaline Phosphatase 102 (39-117) U/L Troponin I High Sens < 2.7 D (<3.5-17.0) ng/L Total Protein 6.2 L (6.5-8.0) g/dL Albumin 2.8 L (3.5-5.0) g/dL Urine Color Dark Yellow Urine Appearance Cloudy Urine pH 6.5 (5.0-9.0) Ur Specific [place] 1.020 (1.005-1.025) Urine Protein Negative (Neg-Trace) mg/dL Urine Glucose (UA) Negative (Negative) mg/dL Urine Ketones 15 (Negative) mg/dL Urine Blood Trace H (Negative) Urine Nitrite Positive H (Negative) Ur Leukocyte Esterase Small (1+) H (Negative) Urine RBC 3-5 H (0-2) /HPF Urine WBC 6-10 H (0-5) /HPF Ur Squamous Epith Cells 3-5 (0-2) /HPF Urine Bacteria 4+ (None Seen) Hyaline Casts 0-2 (0-2) /LPF Ethyl Alcohol < 10 mg/dL Influenza Type A (PCR) NEGATIVE (Negative) Influenza Type B (PCR) NEGATIVE (Negative) RSV RNA Qual (PCR) NEGATIVE (Negative) SARS-CoV-2 RNA (RT-PCR) NEGATIVE (Negative) Discharge Plan Discharge Clinical Impression: Acute UTI, Altered mental status Patient Disposition: Home, Self-Care Instructions: Altered Mental Status (ED) Additional Instructions: Take your medications as prescribed. If you were prescribed antibiotics today, it is important that you take your medication to their entirety, do not skip any doses, do not finish them early. Follow-up with your primary care provider this week. Return to the emergency department with new or worsening symptoms. Such as fevers, chills, chest pain, shortness of breath, nausea, vomiting, dizziness, headache, vision changes, lethargy In case of emergency call 911 Prescriptions: New cefuroxime axetil 250 mg tablet 250 mg PO BID 4 Days Qty: 8 0RF No Action lidocaine [Lidocaine Pain Relief] 4 % Adhesive Patch,Medicated 2 patch transdermal DAILY Qty: 1 0RF Protocol: Apply to: Apply to: Affected area folic acid 1 mg Tablet 1 mg PO DAILY Qty: 1 0RF thiamine mononitrate (vit B1) 100 mg Tablet 100 mg PO DAILY Qty: 1 0RF acetaminophen 325 mg Tablet 975 mg PO Q6H PRN (Reason: Pain) Qty: 1 0RF sertraline 50 mg tablet 100 mg PO DAILY Qty: 1 0RF potassium chloride [Klor-Con 8] 8 mEq tablet extended release 8 meq PO DAILY Qty: 3 0RF Referrals: Rosa Maria Mora PA-C [Primary Care Provider, Family Practice] Interventions: ED Discharge Assessment Last Done: 01/18/25 12:49 Print Language: Swazi
--- NOTE | 2025-01-16 16:10 | ECG_ITS ---
Test Reason : WEAKNESS Blood Pressure : */* mmHG Vent. Rate : 71 BPM Atrial Rate : 71 BPM P-R Int : 148 ms QRS Dur : 82 ms QT Int : 402 ms P-R-T Axes : 55 45 44 degrees QTcB Int : 436 ms Normal sinus rhythm Normal ECG When compared with ECG of 13-Dec-2024 13:18, Premature atrial complexes are no longer Present Referred By: Sissy Valdez Electronically Signed By: MARY HERRING
[2025-01-16 16:19] VITALS: BP 138/65; PULSE 82; RESP 16; TEMP 36.8; O2SAT 98; BMI 18.9
[2025-01-16 18:11] LABS: MANUAL DIFF FLAG NO
[2025-01-16 18:18] LABS: Hematocrit 35.4 % (37.0-47.0); Hemoglobin 12.5 g/dl (12.0-16.0); Imm Gran Abs Auto 0.17 X10*3/uL (0.00-0.03); Imm Gran Pct Auto 1.0 % (0.0-0.4); Lymphocytes Absolute Auto 2.8 X10*3/uL (1.2-4.9); Mean Corpuscular HGB Conc 35.3 g/dl (31.0-35.0); Mean Corpuscular Hemoglobin 33.4 pg (27.0-33.0); Mean Corpuscular Volume 94.7 fL (80.0-98.0); NRBC Abs Auto 0.000 X10*3/uL (0.0-0.012); NRBC Pct Auto 0.0 /100WBC (0.0-0.2); Platelet Count 484 X10*3/uL (160-400); Red Blood Count 3.74 X10*6/uL (4.20-5.50); White Blood Count 16.7 X10*3/uL (4.8-10.8)
[2025-01-16 18:28] LABS: Resp Syncy Virus RNA Qual PCR NEGATIVE (Negative); SARS COV2 PCR INHOUSE NEGATIVE (Negative)
[2025-01-16 18:33] LABS: Alanine Aminotransferase 7 U/L (0-31); Albumin Level 2.8 g/dL (3.5-5.0); Alkaline Phosphatase 102 U/L (39-117); Anion Gap 12 (12-20); Aspartate Amino Transferase 22 U/L (5-31); Blood Urea Nitrogen 10 mg/dL (9-16); Calcium 8.0 mg/dL (8.4-10.2); Carbon Dioxide 24 mmol/L (22-29); Chloride 99 mmol/L (96-108); Magnesium 1.8 mg/dL (1.6-2.6); Potassium 4.1 mmol/L (3.3-5.1); Sodium 131 mmol/L (135-145); Total Protein 6.2 g/dL (6.5-8.0); Troponin-I High Sensitivity < 2.7 ng/L (<3.5-17.0)
[2025-01-16 18:44] LABS: Creatinine Clr Calc Pharmacy 53.1; Estimated Glomerular Filt Rate > 60
[2025-01-16 19:09] LABS: Appearance Urine Cloudy; Glucose Urine UA Negative (Negative); PH 6.5 (5.0-9.0); Specific Gravity - Urine 1.020 (1.005-1.025); UMIC TRIGGER UACC YES
[2025-01-16 19:14] LABS: UACC Culture Trigger YES
--- NOTE | 2025-01-16 19:30 | PC.NURSE ---
manishgauravkade son [phone]
[2025-01-16 19:42] VITALS: BP 150/68; PULSE 73; TEMP 36.3; O2SAT 96
[2025-01-16] MEDS: iohexoL 350 MG/ML 100 ML INFUS..BTL 85 ML IV (20:14)
[2025-01-16 20:45] VITALS: BP 139/70; PULSE 73; RESP 16; TEMP 36.6; O2SAT 97
--- NOTE | 2025-01-16 22:47 | MHC.CM.ED ---
Pt is orientated to self only. Lives at [facility] in [place] She has 01/01 home care provided by [facility]. She has a Community Controlled [employer] Nicolette ([phone]). CM reviewed medical record and last admission. [facility] 12/13-12/21 for UTI & Encepholopathy. Was discharged to [facility]. According to record, patient ambulates short distances independently, and uses a wheelchair for long distances. Pt has a UTI and subacute compression fractures of L2, L3, and L4. Pt has account executive healthcare at her bedside who tells CM she ambulated to without assistance. CM did not call son or community plant care worker due to lateness of the hour (11pm). No referrals made pending PT recommendations. Pt does have a qualifying stay. CM will follow for discharge planning.
[2025-01-16] MEDS: Lidocaine 4 % Patch ADH..PATCH 1 PATCH TRANSDERMA (22:53)
[2025-01-16 22:55] VITALS: BP 158/84; PULSE 81; RESP 16; TEMP 36.6; O2SAT 96
[2025-01-17 01:19] VITALS: BP 149/79; PULSE 78; TEMP 36.3; O2SAT 96
[2025-01-17 05:42] VITALS: BP 140/77; PULSE 72; RESP 12; TEMP 37.1; O2SAT 95
--- NOTE | 2025-01-17 08:04 | PHA.MEDREC ---
Pharmacy Consult ? Medication Reconciliation Pharmacy has completed the medication reconciliation. Patient was just here in December, used med list to re-confirm meds.
--- NOTE | 2025-01-17 08:15 | PC.NURSE ---
It was noted by this nurse that the patient was missing a code status as well as pts med req was completed but home meds not ordered- also pt has uti and continued PO meds for uti had not been ordered. pt also c/o pain and has no prn pain meds. provider was notified and will be coming to evaluate pt and orderes will be placed.
--- NOTE | 2025-01-17 09:14 | MHC.CM.ED ---
Addendum entered by Candice Patel 01/17/25 12:19: Received call from pt's son Sean who states Yeison is traveling today and cannot be reached until late this evening. Sean informed of PT eval and recommendations: he feels STR would be in the pt's best interest and would like to discuss w/Yeison. CM to contact Sean and/or Yeison on 01/18 to finalize pt's d/c plan: home at [facility] care vs new STR referral. ED RN aware of plan. Original Note: Review of notes, PT eval: pt from [facility] care: PT eval supports home care vs STR. Call placed to son Yeison to review findings and assist w/d/c planning needs: message left: awaiting callback
[2025-01-17] MEDS: Lidocaine 4 % Patch ADH..PATCH 2 PATCH TRANSDERMA (09:26)
--- NOTE | 2025-01-17 09:31 | PC.NURSE ---
patient alert to person at times place, rr equal/non labored, pt took medications 1 at a time with water, pt has scrap iron loader/sitter from half-way/assisted living with her at bedside. pt medicated for 6/10 lower back pain. call may within reach, plan of care ongoing.
[2025-01-17 14:50] VITALS: BP 110/69; PULSE 61; RESP 11; TEMP 35.8; O2SAT 95
[2025-01-17 19:54] VITALS: BP 131/70; PULSE 89; RESP 16; TEMP 36.7; O2SAT 97
[2025-01-18 05:01] VITALS: BP 115/60; PULSE 74; RESP 16; TEMP 36.8; O2SAT 99
[2025-01-18 08:10] VITALS: BP 161/102; PULSE 86; RESP 14; TEMP 36.8; O2SAT 99
--- NOTE | 2025-01-18 09:33 | MHC.CM.ED ---
Addendum entered by Candice Patel 01/18/25 11:35: Received call back from pt's son Yeison who will arrive at 1pm to transport pt and her caregiver back to [facility]. ED RN and PA aware and in agreement with plan Addendum entered by Candice Patel 01/18/25 11:12: Repeat calls made to Yeison and Sean regarding pt's medical clearance and ability to return to [facility] w/01/01 care - awaiting callback Original Note: Review of EMR/VS/notes and discussion w/ED provider: pt is ready to return to [facility] w/ private 01/01 care. Messages left for both Yeison and Sean, pt's sons requesting a call back to arrange for pt's return. Awaiting callback at this time.
[2025-01-18] MEDS: Potassium Chloride ER 10 MEQ TABLET.ER PO (09:46)
[2025-01-18] MEDS: Lidocaine 4 % Patch ADH..PATCH 2 PATCH TRANSDERMA (09:46)
[2025-01-18 12:49] VITALS: BP 161/102; PULSE 86; RESP 14; TEMP 36.8; O2SAT 99
[2025-01-18 13:11] VITALS: BP 138/98; PULSE 84; RESP 16; TEMP 36.7; O2SAT 99
--- OUTSIDE RECORDS SUMMARY | 2025-03-05 20:00 | XMS_ITS | Clinical Summary ---
Author Organization Unknown Care Team Providers Care Drawer Fitter Name Role Phone CAROLIN PA, SRINIVAS Unavailable Unavailable ADAN PT, DONNY Unavailable Unavailable FECTECHAYA TRAFFIC INCIDENT MANAGEMENT MANAGER, JUSTIN Unavailable Unavailable READING OT, SEBASTIÁN Unavailable Unavailable Payers Payer Name Policy Type Policy Number Effective Date Expira tion Date MEDICARE.NGS.PDGM [id number] Problems Condition Name Condition Details Condition Category Status Onset Date Resolution Date Last Treatment Date Treating Clinician Comments METABOLIC ENCEPHALOPAT HY Active 01-06 00:00: 00 URINARY TRACT INFECTION, SITE NOT SPECIFIED Active 01-06 00:00: 00 PROTEUS (MIRABILIS) (MORGANII) CAUSING DIS CLASSD ELSWHR Active 01-06 00:00: 00 HYPO-OSMOLAL ITY AND HYPONATREMIA Active 01-06 00:00: 00 HYPOKALEMIA Active 01-06 00:00: 00 ESSENTIAL (PRIMARY) HYPERTENSION Active 01-06 00:00: 00 OTH FRACTURE OF T5-T6 VERTEBRA, SUBS FOR FX W ROUTN HEAL Active 01-06 00:00: 00 OTH FX T7-T8 THOR VERTEBRA, SUBS FOR FX W ROUTN HEAL Active 01-06 00:00: 00 OTH FRACTURE OF T11-T12 VERTEBRA, SUBS FOR FX W ROUTN HEAL Active 01-06 00:00: 00 ALCOHOL ABUSE, UNCOMPLICATE D Active 01-06 00:00: 00 DEPRESSION, UNSPECIFIED Active 01-06 00:00: 00 Allergies, Adverse Reactions, Alerts Allergy Name Allergy Type Status Severity Reaction(s) Onset Date Inactive Date Treating Clinician Comments NO KNOWN ALLERGIES Propensity to adverse reactions Active 01-06 12:43: 37 Vital Signs Vital Name Observation Time Observation Value Commen ts Temperature 2025-01-15 15:41:00.000 97.7 [degF] Temperature 2025-01-15 09:07:00.000 97.7 [degF] Temperature 2025-01-14 16:23:00.000 97.8 [degF] Temperature 2025-01-07 14:43:00.000 97.2 [degF] Temperature 2025-01-06 11:58:00.000 97.2 [degF] BMI (%) 2025-01-06 11:58:00.000 22 kg/m2 Height 2025-01-06 11:58:00.000 64 [in_us] Pulse 2025-01-15 15:41:00.000 74 /min Pulse 2025-01-15 09:07:00.000 80 /min Pulse 2025-01-14 16:23:00.000 72 /min Pulse 2025-01-07 14:43:00.000 80 /min Pulse 2025-01-06 11:58:00.000 72 /min O2 Saturation (%) 2025-01-15 09:18:00.000 97 % O2 Saturation (%) 2025-01-15 09:07:00.000 99 % O2 Saturation (%) 2025-01-07 14:43:00.000 96 % O2 Saturation (%) 2025-01-06 11:58:00.000 100 % Respirations 2025-01-15 15:41:00.000 18 /min Respirations 2025-01-15 09:07:00.000 18 /min Respirations 2025-01-14 16:23:00.000 18 /min Respirations 2025-01-07 14:43:00.000 16 /min Respirations 2025-01-06 11:58:00.000 18 /min Weight (lbs) 2025-01-06 11:58:00.000 130 [lb_av] Systolic Blood Pressure 2025-01-15 15:41:00.000 124 mm [Hg] Systolic Blood Pressure 2025-01-15 09:07:00.000 124 mm [Hg] Systolic Blood Pressure 2025-01-14 16:23:00.000 122 mm [Hg] Systolic Blood Pressure 2025-01-07 14:43:00.000 125 mm [Hg] Systolic Blood Pressure 2025-01-06 11:58:00.000 126 mm [Hg] Diastolic Blood Pressure 2025-01-15 15:41:00.000 70 mm [Hg] Diastolic Blood Pressure 2025-01-15 09:07:00.000 65 mm [Hg] Diastolic Blood Pressure 2025-01-14 16:23:00.000 70 mm [Hg] Diastolic Blood Pressure 2025-01-07 14:43:00.000 80 mm [Hg] Diastolic Blood Pressure 2025-01-06 11:58:00.000 80 mm [Hg] Plan of Treatment Planned Activity Planned Date Details Comments Future Scheduled Test AGENCY MAY PERFORM A RESUMPTION OF CARE VISIT FOLLOWING ANY HOSPITAL ADMISSION. PT TO EVALUATE, OBSERVE / ASSESS, AND MONITOR, TRAFFIC INCIDENT MANAGEMENT MANAGER TO OBSERVE AND MONITOR, PROVIDE SKILLED THERAPEUTIC INTERVENTION, ACTIVITY, EDUCATION, AND TRAINING TO ADDRESS; [code = AGENCY MAY PERFORM A RESUMPTION OF CARE VISIT FOLLOWING ANY HOSPITAL ADMISSION. PT TO EVALUATE, OBSERVE / ASSESS, AND MONITOR, TRAFFIC INCIDENT MANAGEMENT MANAGER TO OBSERVE AND MONITOR, PROVIDE SKILLED THERAPEUTIC INTERVENTION, ACTIVITY, EDUCATION, AND TRAINING TO ADDRESS;] Future Scheduled Test SIT TO/FRO M STAND TRANSFERS (PT/TRAFFIC INCIDENT MANAGEMENT MANAGER) [code = SIT TO/FROM STAND TRANSFERS (PT/TRAFFIC INCIDENT MANAGEMENT MANAGER)] Future Scheduled Test PT/TRAFFIC INCIDENT MANAGEMENT MANAGER TO PROVIDE GAIT TRAINING FOR IMPROVED MOBILITY AND /OR TO NORMALIZE GAIT PATTERN [code = PT/TRAFFIC INCIDENT MANAGEMENT MANAGER TO PROVIDE GAIT TRAINING FOR IMPROVED MOBILITY AND /OR TO NORMALIZE GAIT PATTERN] Future Scheduled Test THERAPEUTI C EXERCISES AND ESTABLISHING A HOME EXERCISE PROGRAM (PT/TRAFFIC INCIDENT MANAGEMENT MANAGER) [code = THERAPEUTIC EXERCISES AND ESTABLISHING A HOME EXERCISE PROGRAM (PT/TRAFFIC INCIDENT MANAGEMENT MANAGER)] Future Scheduled Test BED TRANSF ERS (PT/TRAFFIC INCIDENT MANAGEMENT MANAGER) [code = BED TRANSFERS (PT/TRAFFIC INCIDENT MANAGEMENT MANAGER)] Future Scheduled Test PT/TRAFFIC INCIDENT MANAGEMENT MANAGER TO IDENTIFY FALL RISK FACTORS; EDUCATE THE PATIENT/CAREGIVER ON WAYS TO REDUCE FALL RISK FACTORS AND ESTABLISH HOME EXERCISE PROGRAM TO MINIMIZE FALL RISK. MAY TEACH THE PATIENT FLOOR RECOVERY WHEN CLINICALLY APPROPRIATE [code = PT/TRAFFIC INCIDENT MANAGEMENT MANAGER TO IDENTIFY FALL RISK FACTORS; EDUCATE THE PATIENT/CAREGIVER ON WAYS TO REDUCE FALL RISK FACTORS AND ESTABLISH HOME EXERCISE PROGRAM TO MINIMIZE FALL RISK. MAY TEACH THE PATIENT FLOOR RECOVERY WHEN CLINICALLY APPROPRIATE] Future Scheduled Test PT/TRAFFIC INCIDENT MANAGEMENT MANAGER TO EDUCATE ON PRESSURE INJURY AND PREVENTION. [code = PT/TRAFFIC INCIDENT MANAGEMENT MANAGER TO EDUCATE ON PRESSURE INJURY AND PREVENTION.] Future Scheduled Test PT / TRAFFIC INCIDENT MANAGEMENT MANAGER T O MONITOR AND EDUCATE ON OXYGEN SATURATION DURING ADLS/IADLS, NOTIFY PHYSICIAN AND/OR THE RN CLINICAL GARBAGE TRUCK DRIVER FOR PHYSICIAN NOTIFICATION AND IF O2 SATS BELOW PHYSICIAN ORDERED PARAMETERS AFTER 10 MIN OF REST [code = PT / TRAFFIC INCIDENT MANAGEMENT MANAGER TO MONITOR AND EDUCATE ON OXYGEN SATURATION DURING ADLS/IADLS, NOTIFY PHYSICIAN AND/OR THE RN CLINICAL GARBAGE TRUCK DRIVER FOR PHYSICIAN NOTIFICATION AND IF O2 SATS BELOW PHYSICIAN ORDERED PARAMETERS AFTER 10 MIN OF REST] Future Scheduled Test PT / TRAFFIC INCIDENT MANAGEMENT MANAGER M AY EDUCATE ON PAIN MANAGEMENT CLINICALLY INDICATED, INCLUDING NON-PHARMACOLOGICAL PAIN REDUCTION TECHNIQUES AND USE OF CRYOTHERAPY OR HEAT UP TO 20 MIN AT A TIME FOR PAIN MANAGEMENT 3 TIMES PER DAY [code = PT / TRAFFIC INCIDENT MANAGEMENT MANAGER MAY EDUCATE ON PAIN MANAGEMENT CLINICALLY INDICATED, INCLUDING NON-PHARMACOLOGICAL PAIN REDUCTION TECHNIQUES AND USE OF CRYOTHERAPY OR HEAT UP TO 20 MIN AT A TIME FOR PAIN MANAGEMENT 3 TIMES PER DAY] Future Scheduled Test OCCUPATION AL THERAPIST TO EVALUATE FOR ADLS, IADLS, AND HOME SAFETY [code = OCCUPATIONAL THERAPIST TO EVALUATE FOR ADLS, IADLS, AND HOME SAFETY] Future Scheduled Test PT / TRAFFIC INCIDENT MANAGEMENT MANAGER T O OBSERVE WOUND/INCISION AND/OR INTACT DRESSING ON R SUPERIOR BUTTOCK AND REPORT EARLY SIGNS AND SYMPTOMS OF WOUND DETERIORATION, COMPLICATIONS, OR INFECTION TO PHYSICIAN AND/OR THE RN CLINICAL GARBAGE TRUCK DRIVER FOR PHYSICIAN NOTIFICATION. [code = PT / TRAFFIC INCIDENT MANAGEMENT MANAGER TO OBSERVE WOUND/INCISION AND/OR INTACT DRESSING ON R SUPERIOR BUTTOCK AND REPORT EARLY SIGNS AND SYMPTOMS OF WOUND DETERIORATION, COMPLICATIONS, OR INFECTION TO PHYSICIAN AND/OR THE RN CLINICAL GARBAGE TRUCK DRIVER FOR PHYSICIAN NOTIFICATION.] Future Scheduled Test NEUROMUSCU LAR RE-EDUCATION / BALANCE / POSTURAL CONTROL (PT) [code = NEUROMUSCULAR RE-EDUCATION / BALANCE / POSTURAL CONTROL (PT)] Future Scheduled Test AGENCY MAY PERFORM A RESUMPTION OF CARE VISIT FOLLOWING ANY HOSPITAL ADMISSION. OT TO EVALUATE, OBSERVE / ASSESS, AND MONITOR, ANGELIC TO OBSERVE AND MONITOR, PROVIDE SKILLED THERAPEUTIC INTERVENTION, ACTIVITY, EDUCATION, AND TRAINING TO ADDRESS; BATHING/SHOWERING (OT/TREASURER SAVINGS BANK) DRESSING (OT/ANGELIC) TOILET TRANSFER (OT/ANGELIC) BATH/SHOWER TRANSFER (OT/TREASURER SAVINGS BANK) POSTURAL CONTROL/BALANCE (OT/TREASURER SAVINGS BANK) THERAPEUTIC EXERCISE (OT/TREASURER SAVINGS BANK) OT/TREASURER SAVINGS BANK TO MONITOR AND EDUCATE ON OXYGEN SATURATION DURING ADLS/IADLS, NOTIFY PHYSICIAN AND/OR THE RN CLINICAL GARBAGE TRUCK DRIVER FOR PHYSICIAN NOTIFICATION AND IF O2 SATS BELOW 90% AFTER 10 MIN OF REST. OT/ANGELIC MAY EDUCATE ON PAIN MANAGEMENT CLINICALLY INDICATED. OT/TREASURER SAVINGS BANK TO MONITOR FOR SIGNS AND SYMPTOMS OF UTI AND EDUCATE PATIENT/CAREGIVER TO MINIMIZE RISK OF DEVELOPING A UTI. OT / ANGELIC TO IDENTIFY FALL RISK FACTORS; EDUCATE THE PATIENT/CAREGIVER ON WAYS TO REDUCE FALL RISK FACTORS AND ESTABLISH HOME EXERCISE PROGRAM TO MINIMIZE FALL RISK. MAY TEACH THE PATIENT FLOOR RECOVERY WHEN CLINICALLY APPROPRIATE. [code = AGENCY MAY PERFORM A RESUMPTION OF CARE VISIT FOLLOWING ANY HOSPITAL ADMISSION. OT TO EVALUATE, OBSERVE / ASSESS, AND MONITOR, TREASURER SAVINGS BANK TO OBSERVE AND MONITOR, PROVIDE SKILLED THERAPEUTIC INTERVENTION, ACTIVITY, EDUCATION, AND TRAINING TO ADDRESS; BATHING/SHOWERING (OT/TREASURER SAVINGS BANK) DRESSING (OT/TREASURER SAVINGS BANK) TOILET TRANSFER (OT/TREASURER SAVINGS BANK) BATH/SHOWER TRANSFER (OT/TREASURER SAVINGS BANK) POSTURAL CONTROL/BALANCE (OT/ANGELIC) THERAPEUTIC EXERCISE (OT/TREASURER SAVINGS BANK) OT/TREASURER SAVINGS BANK TO MONITOR AND EDUCATE ON OXYGEN SATURATION DURING ADLS/IADLS, NOTIFY PHYSICIAN AND/OR THE RN CLINICAL GARBAGE TRUCK DRIVER FOR PHYSICIAN NOTIFICATION AND IF O2 SATS BELOW 90% AFTER 10 MIN OF REST. OT/ANGELIC MAY EDUCATE ON PAIN MANAGEMENT CLINICALLY INDICATED. OT/TREASURER SAVINGS BANK TO MONITOR FOR SIGNS AND SYMPTOMS OF UTI AND EDUCATE PATIENT/CAREGIVER TO MINIMIZE RISK OF DEVELOPING A UTI. OT / ANGELIC TO IDENTIFY FALL RISK FACTORS; EDUCATE THE PATIENT/CAREGIVER ON WAYS TO REDUCE FALL RISK FACTORS AND ESTABLISH HOME EXERCISE PROGRAM TO MINIMIZE FALL RISK. MAY TEACH THE PATIENT FLOOR RECOVERY WHEN CLINICALLY APPROPRIATE.] Goal Patient Goal - I MPROVE MOBILITY AND STRENGTH. IMPROVE WALKING ABILITY Goal Provider Goal - Goal Provider Goal - PT STG: PATIENT WILL DEMONSTRATE IMPROVED ABILITY TO PERFORM SIT TO/FROM STAND TRANSFERS TO REDUCE THE RISK OF SKIN BREAKDOWN AND REDUCE FALL RISK FROM MIN A TO INDEP WITHIN 5 WEEKS Goal Provider Goal - PT LTG: PATIENT WILL DEMONSTRATE IMPROVED SAFE FUNCTIONAL MOBILITY USING RW ON LEVEL SURFACES USING RW FROM MIN A TO INDEP WITHIN 9 WEEKS Goal Provider Goal - PT LTG: PATIENT WILL DEMONSTRATE IMPROVED FUNCTIONAL STRENGTH EVIDENCED BY FIVE TIMES SIT TO STAND TEST (CUT SCORE >12 SECONDS INDICATES AN INCREASED FALL RISK) IMPROVING FROM NT TO 20 SECONDS WITHIN 9 WEEKS PT LTG: PATIENT WILL DEMONSTRATE INCREASED STRENGTH OF LES FROM 3/5 TO 4/5 WITHIN 9 WEEKS Goal Provider Goal - PT LTG: PATIENT WILL DEMONSTRATE IMPROVED ABILITY TO PERFORM BED TRANSFERS IN ORDER TO REDUCE RISK OF SKIN BREAKDOWN FROM NT TO INDEP WITHIN 9 WEEKS Goal Provider Goal - PT LTG: PATIENT WILL BE INDEPENDENT WITH IMPLEMENTATION OF HEP WITHIN 4 WEEKS Goal Provider Goal - PATIENT/CAREGIVER WILL BE ABLE TO VERBALIZE UNDERSTANDING OF PRESSURE ULCER PREVENTION AND SELF-MANAGEMENT. Goal Provider Goal - PT LTG: PATIENT WILL MAINTAIN OXYGEN SATURATION WITHIN PHYSICIAN ORDERED PARAMETERS THROUGHOUT EPISODE OF CARE. Goal Provider Goal - PT GOAL: PATIENT WILL DEMONSTRATE UNDERSTANDING OF PAIN MANAGEMENT TECHNIQUES EVIDENCED BY REDUCED PAIN IN LOWER BACK FROM 4/10 TO /10 WITHIN 9 WEEKS Goal Provider Goal - Goal Provider Goal - PT GOAL: THE PATIENT WILL NOT DEMONSTRATE ANY WOUND COMPLICATIONS DURING THE EPISODE OF CARE. Goal Provider Goal - PT LTG: PATIENT WILL DEMONSTRATE REDUCED FALL RISK EVIDENCED BY TUG TEST (CUT SCORE >11 SECONDS INDICATES INCREASED FALL RISK) IMPROVING FROM NT TO 20 WITHIN 9 WEEKS Goal Provider Goal - OT LTG: PATIENT WILL DEMONSTRATE IMPROVED ABILITY TO PERFORM BATHING/SHOWERING AND REDUCE CAREGIVER BURDEN FROM MAX A TO MIN A WITHIN 8 WEEKS OT LTG: PATIENT WILL DEMONSTRATE IMPROVED ABILITY TO PERFORM UPPER BODY DRESSING TO REDUCE CAREGIVER BURDEN FROM MOD A TO SET UP WITHIN 8 WEEKS OT LTG: PATIENT WILL DEMONSTRATE IMPROVED ABILITY TO PERFORM LOWER BODY DRESSING TO REDUCE CAREGIVER BURDEN FROM MAX A TO CGA WITHIN 8 WEEKS OT LTG: PATIENT WILL DEMONSTRATE IMPROVED ABILITY TO PERFORM TOILET TRANSFERS TO REDUCE FALL RISK AND RISK OF INCONTINENCE AND UTI DEVELOPMENT FROM MIN A TO SUP WITHIN 8 WEEKS OT LTG: PATIENT WILL DEMONSTRATE IMPROVED ABILITY AND SAFETY TO PERFORM BATH/SHOWER TRANSFER FROM MOD A TO SBA WITHIN 8 WEEKS OT LTG: PATIENT WILL DEMONSTRATE IMPROVED POSTURAL CONTROL AND DECREASED FALL RISK EVIDENCED BY AN IMPROVEMENT IN FUNCTIONAL REACH SCORE FROM 4 TO 8 WITHIN 8 WEEKS IN ORDER TO DECREASE RISK OF OT LTG: PATIENT WILL DEMONSTRATE IMPROVED BUE MUSCLE STRENGTH EVIDENCED BY AN IMPROVEMENT IN MMT/FUNCTIONAL STRENGTH FROM 4-/5 TO 4+/5 WITHIN 8 WEEKS IN ORDER TO IMPROVE INDEPENDENCE WITH FUNCTIONAL TRANSFERS OT LTG: PATIENT WILL MAINTAIN OXYGEN SATURATION WITHIN PHYSICIAN ORDERED PARAMETERS THROUGHOUT THE EPISODE OF CARE. OT LTG: PATIENT WILL DEMONSTRATE UNDERSTANDING OF PAIN MANAGEMENT TECHNIQUES NEEDED DURING EPISODE OF CARE OT GOAL: PATIENT WILL NOT EXHIBIT SIGNS AND SYMPTOMS OF UTI THROUGHOUT THE EPISODE OF CARE. OT LTG: PATIENT/CAREGIVER WILL BE ABLE TO IMPLEMENT RECOMMENDATIONS SPECIFIC TO FALL REDUCTION FOR IMPROVED ADL/IADL COMPLETION AND HOME SAFETY BY END OF EPISODE. Encounters Start Date/Time End Date/Time Encounter Type Admission Type Attending [facility] Facility Care Department Encounter ID Discharge Date Discharge Status Discharge Condition Discharge Reason Percent Goals Met 2025-01-06 00:00:00 2025-03-06 00:00:00 Outpatient NEW ADMISSION [facility] [id number]
== END 2025-01-18 13:11 | disposition home or self-care (01) ==
PROVIDERS: Emergency Provider Emergency Medicine Emergency Medical Services; PCP Physician Assistant
DX: N39.0 Urinary tract infection, site not specified (principal); R41.82 Altered mental status, unspecified; R53.1 Weakness; R62.7 Adult failure to thrive; Z68.1 Body mass index [BMI] 19.9 or less, adult; Z03.818 Encounter for observation for suspected exposure to other biological agents ruled out
CPT/HCPCS: 36415; 70450; 71045; 74177; 80053; 80307; 81001; 83735; 84484; 85025; 87086; 87637; 93005; 96361; 96374; 97162; 99285; J0696; Q9967

== ENCOUNTER → 2025-01-16 16:10 | Outpatient (BNV) | payer MEDICARE, OTHER, SELFPAY | PROVIDERS: Emergency Provider Emergency Medicine Emergency Medical Services; PCP Physician Assistant; Visit Provider Radiology Diagnostic Radiology | DX: R53.1 Weakness (principal); R79.89 Other specified abnormal findings of blood chemistry | CPT/HCPCS: 71045 ==

== ENCOUNTER → 2025-01-16 16:10 | Outpatient (BNV) | payer MEDICARE, OTHER, SELFPAY | PROVIDERS: Emergency Provider Emergency Medicine Emergency Medical Services; PCP Physician Assistant; Visit Provider Internal Medicine | DX: R53.1 Weakness (principal) | CPT/HCPCS: 93010 ==

== ENCOUNTER 2025-03-25 18:35 | Outpatient (REF) | payer MEDICARE, OTHER, SELFPAY ==
[2025-03-26 13:59] LABS: Appearance Urine Cloudy; Glucose Urine UA Negative (Negative); PH 6.0 (5.0-9.0); Specific Gravity - Urine 1.020 (1.005-1.025); UMIC TRIGGER UA YES
--- OUTSIDE RECORDS SUMMARY | 2025-03-26 15:41 | XMS_ITS | Clinical Summary ---
Author Organization [facility] Address [address] [place] [address] Phone Care Team Providers Care Switch Operators Supervisor Name Role Phone Ariela Bowman NP Primary Care Provider [phone] Encounters Date Type Department Care Team Description 02/18/2025 11:15 AM EDT - 02/18/2025 11:59 PM EDT Hospital Encounter [facility] Nuclear Medicine [address] [place] [phone] Discharge Disposition: Home or Self Care 02/18/2025 8:02 AM EDT - 02/18/2025 11:59 PM EDT Hospital Encounter [facility] Nuclear Medicine [address] [place] [address] [phone] Fracture Discharge Disposition: Home or Self Care from Last 3 Months Social History Tobacco Use Types Packs/Day Years Used Date Smoking Tobacco: Never Assessed Comments Unknown Sex and Gender Information Value Date Recorded Sex Assigned at Not on file Legal Sex Female 8:56 AM EDT Gender Identity Not on file Sexual Orientation Not on file Plan of Treatment Health Maintenance Due Date Last Done Comments Pneumococcal Vaccine: 50+ Years (1 of 1 - PCV) 1988 Zoster Vaccines (1 of 2) 1988 RSV Immunization Adult Patients (1 - 1-dose 75+ series) 2013 Depression Screening 06/11/2024 Influenza Vaccine (#1) 2025 Falls Risk Assessment 02/17/2025 Medicare Annual Wellness Visit 02/17/2025 Osteoporosis Screening (Bone Density Screening) 02/17/2025 Social Influencers of Health Screening 02/17/2025 DTaP,Tdap,and Td Vaccines (2 - Td or Tdap) 05/24/2033 05/24/2023 COVID-19 Vaccine Completed 09/23/2024, 03/06/2024 HIB Vaccines Aged Out No longer eligi ble based on patient's age to complete this topic HPV Vaccines Aged Out No longer eligi ble based on patient's age to complete this topic Hepatitis A Vaccines Aged Out No long er eligible based on patient's age to complete this topic Hepatitis B Vaccines Aged Out No long er eligible based on patient's age to complete this topic IPV Vaccines Aged Out No longer eligi ble based on patient's age to complete this topic MMR Vaccines Aged Out No longer eligi ble based on patient's age to complete this topic Meningococcal ACWY Vaccine Aged Out N o longer eligible based on patient's age to complete this topic Meningococcal B Vaccine Aged Out No l onger eligible based on patient's age to complete this topic RSV Immunization Patients Under 20 months Aged Out No longer eligible b ased on patient's age to complete this topic Varicella Vaccines Aged Out No longer eligible based on patient's age to complete this topic Procedures Procedure Name Priority Date/Time Associated Diagnosis Comments NM BONE/JOINT SCAN SPECT CT Routine 02/18/2025 11:55 AM EDT Fracture from Last 3 Months Results * NM Bone/Joint Scan Spect CT (02/18/2025 11:55 AM EDT) Anatomical Region Laterality Modality Nuclear Medicine 02/24/2025 3:41 PM EDT Impressions 02/24/2025 3:56 PM EDT Active compression fractures at the T7, T12, L2, L3 and L4 levels. -------- FINAL REPORT -------- Dictated By: Jakc Andrews Dictated Date: 02/24/2025 15:41 ET Assigned Physician: Jack Andrews Reviewed and Electronically Signed By: Jack Andrews Signed Date: 02/24/2025 15:56 ET Workstation ID: [id number] Transcribed By: Self Edit Transcribed Date: 02/24/2025 15:41 ET Narrative 02/24/2025 3:56 PM EDT EXAM PERFORMED: Bone SPECT REASON FOR EXAM: FRACTURE ACUTE PAIN COMPARISON: Correlation made with prior outside CT scan of the abdomen and pelvis from January 16, 2025. There is no prior bone scan available for comparison. RADIOISOTOPE: 25.2 mCi of Tc99m MDP TECHNIQUE: SPECT imaging of the thoracolumbar spine was performed after administration of Tc [address]m MDP[address] CT images obtained of the thoracolumbar spine. Coronal, sagittal and fused SPECT-CT images were created. Static 3 hour delay images obtained in the anterior, posterior as well as right and left anteroposterior oblique positions. FINDINGS: Intense focal uptake noted in the lumbar region at the L2, L3 and L4 levels consistent with active compression fractures. Mildly increased activity noted along the inferior endplate towards the right side at the L1 level likely related to disc space narrowing and osteophyte formation. Focal uptake noted at the T7 and T12 levels also consistent with active compression fractures. No abnormal activity associated with T6 or T11 fractures. Mild activity along the T1 and T2 levels appears degenerative. Mild focal activity along the right 1st clavicular sternal junction appears degenerative. Procedure Note Jack Andrews MD - 02/24/2025 EXAM PERFORMED: Bone SPECT REASON FOR EXAM: FRACTURE ACUTE PAIN COMPARISON: Correlation made with prior outside CT scan of the abdomen andpelvis from January 16, 2025. There is no prior bone scan available forcomparison. RADIOISOTOPE: 25.2 mCi of Tc99m MDP TECHNIQUE: SPECT imaging of the thoracolumbar spine was performed afteradministration of Tc 99m MDP[address] CT images obtained of the thoracolumbarspine. Coronal, sagittal and fused SPECT-CT images were created. Static 3hour delay images obtained in the anterior, posterior as well as right andleft anteroposterior oblique positions. FINDINGS: Intense focal uptake noted in the lumbar region at the L2, L3and L4 levels consistent with active compression fractures. Mildly increased activity noted along the inferior endplate towards theright side at the L1 level likely related to disc space narrowing andosteophyte formation. Focal uptake noted at the T7 and T12 levels also consistent with activecompression fractures. No abnormal activity associated with T6 or [id number]. Mild activity along the T1 and T2 levels appears degenerative. Mild focal activity along the right 1st clavicular sternal junctionappears degenerative. IMPRESSION: Active compression fractures at the T7, T12, L2, L3 and L4 levels. -------- FINAL REPORT -------- Dictated By: Jack Andrews Dictated Date: 02/24/2025 15:41 ET Assigned Physician: Jack Andrews Reviewed and Electronically Signed By: Jack Andrews Signed Date: 02/24/2025 15:56 ET Workstation ID: [id number] Transcribed By: Self Edit Transcribed Date: 02/24/2025 15:41 ET Rg Hylton MD IMG NM PROCEDURES Final Result from Last 3 Months Insurance MEDICARE [facility] Care Teams Switch Operators Supervisor Relationship Specialty Start Date End Date Ariela Bowman NP [address] [place] [phone] PCP - General Nurse Practitioner 02/17/25
--- OUTSIDE RECORDS SUMMARY | 2025-03-26 15:41 | XMS_ITS | Clinical Summary ---
Author Organization [facility] Address [address] [address] Phone Care Team Providers Care Distilling Department Supervisor Name Role Phone Rosa Maria Mora Primary Care Provider [phone] Encounters Date Type Department Care Team Description 01/05/2025 4:29 PM EDT - 01/05/2025 11:59 PM EDT Hospital Encounter [facility] [address] [facility] [place] [address] Miriam Jones NP Discharge Disposition: Home or Self Care 01/05/2025 7:59 AM EDT - 01/05/2025 4:28 PM EDT Hospital Encounter [facility] [address] [place] [address] Braxton Wright MD Discharge Disposition: Home or Self Care 01/05/2025 Transcribe Orders [facility] Specimen Processing [address] [place] [address] Miriam Jones NP Leukocytosis, unspecified type (Primary Dx) 01/05/2025 Transcribe Orders [facility] Specimen Processing [address] [place] [address] Braxton Wright MD Screening for unspecified condition (Primary Dx) 01/02/2025 7:38 AM EDT - 01/02/2025 11:59 PM EDT Hospital Encounter [facility] [address] [place] [address] Braxton Wrihgt MD Discharge Disposition: Home or Self Care 01/01/2025 11:51 AM EDT - 01/01/2025 11:59 PM EDT Hospital Encounter [facility] [address] [place] [address] Miriam Jones NP Discharge Disposition: Home or Self Care 01/01/2025 Transcribe Orders [facility] Specimen Processing [address] [place] [address] Miriam Jones NP Urinary tract infection without hematuria, site unspecified (Primary Dx) from Last 3 Months Social History Tobacco Use Types Packs/Day Years Used Date Smoking Tobacco: Never Assessed Education Answer Date Recorded Are you interested in more education? Not on didier e 12/22/2024 Are you concerned about learning? Not on file 12/22/2024 No 12/22/2024 No 12/22/2024 Digital Access Answer Date Recorded No 12/22/2024 No 12/22/2024 Reliable internet access at home? Not on file 12/22/2024 Device with a working camera? Not on file Comments Unknown Sex and Gender Information Value Date Recorded Sex Assigned at Not on file Legal Sex Female 10:23 AM EDT Gender Identity Not on file Sexual Orientation Not on file Plan of Treatment Not on file Medical Devices Not on file Procedures Procedure Name Priority Date/Time Associated Diagnosis Comments URINALYSIS Routine 01/05/2025 4:36 PM EDT Leukocytosis, unspecified type URINE CULTURE Routine 01/05/2025 4:36 PM EDT Leukocytosis, unspecified type COMPREHENSIVE METABOLIC PANEL Routine 01/05/2025 5:15 AM EDT Screening for unspecified condition CBC Routine 01/05/2025 5:15 AM EDT Screening for unspecified condition CBC AND DIFFERENTIAL Routine 01/02/2025 6:11 AM EDT Leukocytosis, unspecified type CBC AND DIFFERENTIAL Routine 01/01/2025 8:20 AM EDT Urinary tract infection without hematuria, site unspecified BASIC METABOLIC PANEL Routine 01/01/2025 8:20 AM EDT Urinary tract infection without hematuria, site unspecified from Last 3 Months Results * Urine Culture (01/05/2025 4:36 PM EDT) Special Requests None 01/05/2025 4:36 PM EDT [facility] Urine Culture NO GROWTH 48HRS 01/07/2025 10:10 AM EDT [facility] Urine (Urine) 01/05/2025 4:3 6 PM EDT 01/05/2025 4:38 PM EDT Comment:STRAIGHT CATH Miriam Jones TREATMENT SUPERVISOR MICROBIOLOGY - GENERAL ORDERABLE S Final Result Performing Organization Address [facility] Co de Phone Number [address] [address] * (ABNORMAL) Urinalysis (01/05/2025 4:36 PM EDT) COLOR Yellow Yellow [facility] CLARITY Clear [facility] GLUCOSE Negative Negative [facility] BILI Negative Negative [facility] KETONES Negative Negative [facility] SPECIFIC GRAVITY <1.005 1.005 - 1.030 [facility] BLOOD Trace(A) Negative [facility] PH 6.0 5.0 - 8.0 [facility] Protein-UA Negative Negative [facility] NITRITE Negative Negative [facility] Leukocyte esterase, ur Negative Negative [facility] Urine (Urine) 01/05/2025 4:3 6 PM EDT 01/05/2025 4:39 PM EDT Miriam Jones TREATMENT SUPERVISOR URINE ORDERABLES Final Result Performing Organization Address City/[facility]/ZIP Co de Phone Number [address] [address] * (ABNORMAL) Comprehensive metabolic panel (01/05/2025 5:15 AM EDT) SODIUM 126(L) 133 - 146 mmol/L [facility] POTASSIUM 3.6 3.3 - 5.1 mmol/L [facility] Comment:Specimen slightly he molyzed, result may be falsely elevated. CHLORIDE 90(L) 96 - 108 mmol/L [facility] CO2 20(L) 21 - 35 mmol/L [facility] BUN 9 6 - 19 mg/dL [facility] CREATININE 0.50 0.5 - 1.5 mg/dL [facility] GLUCOSE 67(L) 70 - 99 mg/dL [facility] ALBUMIN 3.1(L) 3.9 - 4.8 g/dL [facility] TOTAL PROTEIN 6.2(L) 6.5 - 8.0 g/dL [facility] CALCIUM 8.5 8.4 - 10.3 mg/dL [facility] ALKALINE PHOSPHATASE 129(H) 39 - 117 U/L [facility] TOTAL BILIRUBIN 0.4 0.0 - 1.2 mg/dL [facility] AST 22 0 - 37 U/L [facility] ALT 13 0 - 40 U/L [facility] GLOBULIN 3.1 1 - 4.8 g/dL [facility] EGFR 91 >59 mL/min/1.7 3m2 [facility] Comment:Estimated glomerular filtration rate calculated using the CKD-EPI refit equation. ANION GAP 20 10 - 20 mmol/L [facility] Blood 01/05/2025 5:15 AM EDT 01/05/2025 8:13 AM EDT Braxton Wright MD LAB BLOOD ORDERABLES Chelle luo Result [address] [address] * (ABNORMAL) CBC (01/05/2025 5:15 AM EDT) WBC 18.04(H) 4.00 - 11.00 K/uL [facility] RBC 3.78(L) 4.00 - 5.20 M/uL [facility] HGB 12.3 12.0 - 16.0 g/dL [facility] HCT 36.2 36.0 - 46.0 % [facility] PLT 501(H) 150 - 450 K/uL [facility] MCV 95.8 80.0 - 100.0 fL [facility] MCH 32.5(H) 27.0 - 31.0 pg [facility] MCHC 34.0 32.0 - 36.0 g/dL [facility] RDW 12.4 11.5 - 14.5 % [facility] MPV 9.2 8.4 - 12.0 fL [facility] NRBC 0.00 0.00 /100 WBCs [facility] ABSOLUTE NRBC 0.00 0.00 K/uL [facility] Blood 01/05/2025 5:15 AM EDT 01/05/2025 8:13 AM EDT us Braxton Wright MD LAB BLOOD ORDERABLES Chelle luo Result [address] [address] * (ABNORMAL) CBC and differential (01/02/2025 6:11 AM EDT) Only the most recent of2 resultswithin the time period is included. WBC 26.13(H) 4.00 - 11.00 K/uL [facility] RBC 3.83(L) 4.00 - 5.20 M/uL [facility] HGB 12.7 12.0 - 16.0 g/dL [facility] HCT 35.5(L) 36.0 - 46.0 % [facility] PLT 468(H) 150 - 450 K/uL [facility] MCV 92.7 80.0 - 100.0 fL [facility] MCH 33.2(H) 27.0 - 31.0 pg [facility] MCHC 35.8 32.0 - 36.0 g/dL [facility] RDW 12.7 11.5 - 14.5 % [facility] MPV 9.0 8.4 - 12.0 [facility] NRBC 0.00 0.00 /100 WBCs [facility] ABSOLUTE NRBC 0.00 0.00 K/uL [facility] DIFF METHOD Auto [facility] NEUTS 84.9(H) 48.0 - 76.0 % [facility] LYMPHS 4.2(L) 18.0 - 41.0 % [facility] MONOS 9.5 4.0 - 11.0 % [facility] EOS 0.3 0.0 - 5.0 % [facility] BASOS 0.3 0.0 - 1.5 % [facility] Granulocytes, immature (%) 0.8 0.0 - 0.9 % [facility] ABSOLUTE NEUTS 22.17(H) 1.92 - 7.60 K/uL [facility] ABSOLUTE LYMPHS 1.10 0.72 - 4.10 K/uL [facility] ABSOLUTE MONOS 2.49(H) 0.16 - 1.10 K/uL [facility] ABSOLUTE EOS 0.08 0.00 - 0.50 K/uL [facility] ABSOLUTE BASOS 0.08 0.00 - 0.15 K/uL [facility] Granulocytes, immature 0.21(H) 0.00 - 0.09 K/uL [facility] Blood 01/02/2025 6:11 AM EDT 01/02/2025 7:59 AM EDT us Braxton Wright MD LAB BLOOD ORDERABLES Chelle luo Result [facility] [address] [place] [address] * (ABNORMAL) Basic metabolic panel (01/01/2025 8:20 AM EDT) SODIUM 125(L) 133 - 146 mmol/L [facility] CHLORIDE 89(L) 96 - 108 mmol/L [facility] POTASSIUM 3.6 3.3 - 5.1 mmol/L [facility] Comment:Specimen slightly he molyzed, result may be falsely elevated. CO2 18(L) 21 - 35 mmol/L [facility] BUN 18 6 - 19 mg/dL [facility] CREATININE 0.80 0.5 - 1.5 mg/dL [facility] GLUCOSE 65(L) 70 - 99 mg/dL [facility] CALCIUM 9.2 8.4 - 10.3 mg/dL [facility] EGFR 72 >59 mL/min/1.7 3m2 [facility] Comment:Estimated glomerular filtration rate calculated using the CKD-EPI refit equation. ANION GAP 22(H) 10 - 20 mmol/L [facility] Blood 01/01/2025 8:20 AM EDT 01/01/2025 12:00 PM EDT us Miriam Jones NP LAB BLOOD ORDERABLES Final Resul t [facility] [address] [place] [address] from Last 3 Months Insurance MEDICARE PART A & B MEDICARE PART A & B MEDICARE PART A & B MEDICARE PART A & B MEDICARE PART A & B MEDICARE PART A & B Care Teams Distilling Department Supervisor Relationship Specialty Start Date End Date Rosa Maria Mora PA [address] [place] [phone] PCP - General Physician Finish Mixer 12/22/24 Additional Source Comments The information contained in this document represents components of the legal health record. It is not the complete legal health record.[facility]
== END 2025-03-25 18:36 | disposition home or self-care (01) ==
LOC: HO.LNP 18:35
PROVIDERS: Visit Provider Family Medicine
DX: R35.0 Frequency of micturition (principal)
CPT/HCPCS: 81001; 81003; 87086; 87088; 87186

== ENCOUNTER 2025-04-16 12:33 | Outpatient (REF) | payer MEDICARE, OTHER, SELFPAY ==
[2025-04-16 13:40] LABS: Appearance Urine Clear; Glucose Urine UA Negative (Negative); PH 6.5 (5.0-9.0); Specific Gravity - Urine 1.010 (1.005-1.025); UMIC TRIGGER UA YES
--- OUTSIDE RECORDS SUMMARY | 2025-04-16 15:23 | XMS_ITS | Clinical Summary ---
Author Organization [facility] Address [address] [place] [address] Phone Care Team Providers Care Game And Fish Protector Name Role Phone Rosa Maria Mora Primary Care Provider [phone] Social History Tobacco Use Types Packs/Day Years [...] on file Medical Devices Not on file Insurance MEDICARE PART A & B MEDICARE PART A & B MEDICARE PART A & B MEDICARE PART A & B MEDICARE PART A & B MEDICARE PART A & B Care Teams Game And Fish Protector Relationship Specialty Start Date End Date Rosa Maria Mora PA [address] [place] [phone] PCP - General Physician Occupational Therapy Program Director 12/22/24 Additional Source Comments The information contained in this document represents components of the legal health record. It is not the complete legal health record.[facility]
--- OUTSIDE RECORDS SUMMARY | 2025-04-16 15:23 | XMS_ITS | Clinical Summary ---
Author Organization [facility] Address [address] [place] [address] Phone Care Team Providers Care Dispatcher Maintenance Service Name Role Phone Ariela Bowman NP Primary Care Provider [phone] Encounters Date Type Department Care Team Description 02/18/2025 11:15 AM EDT - 02/18/2025 11:59 PM EDT Hospital Encounter [facility] Nuclear Medicine [address] [place] [phone] Discharge Disposition: Home or Self Care 02/18/2025 8:02 AM EDT - 02/18/2025 11:59 PM EDT Hospital Encounter [facility] Nuclear Medicine [address] [place] [phone] Fracture Discharge Disposition: Home or Self Care [...] Signed Date: 02/24/2025 15:56 ET Workstation ID: [id number] Transcribed By: Self Edit Transcribed Date: 02/24/2025 [...] No abnormal activity associated with T6 or [id number]. Mild activity along the T1 and T2 [...] Signed Date: 02/24/2025 15:56 ET Workstation ID: [id number] Transcribed By: Self Edit Transcribed Date: 02/24/2025 15:41 ET Rg Hylton MD IMG NM PROCEDURES Final Result from Last 3 Months Insurance MEDICARE [facility] Care Teams Dispatcher Maintenance Service Relationship Specialty Start Date End Date Ariela Bowman NP [address] [place] [phone] PCP - General Nurse Practitioner 02/17/25
== END 2025-04-16 12:34 | disposition home or self-care (01) ==
LOC: HO.LNP 12:33
DX: R35.0 Frequency of micturition (principal)
CPT/HCPCS: 81001; 81003; 87086

== ENCOUNTER 2025-06-05 17:24 | Outpatient (REF) | payer MEDICARE, OTHER, SELFPAY ==
--- OUTSIDE RECORDS SUMMARY | 2025-06-05 17:28 | XMS_ITS | Clinical Summary ---
Author Organization [facility] Address [address] [place] [address] Phone Care Team Providers Care Bartender Helper Name Role Phone Rosa Maria Mora Primary Care Provider [phone] Social History Tobacco Use Types Packs/Day Years [...] MEDICARE PART A & B Care Teams Bartender Helper Relationship Specialty Start Date End Date Rosa Maria Mora PA [address] [place] [phone] PCP - General Physician Academic Support Coordinator 12/22/24 Additional Source Comments The information contained in this document represents components of the legal health record. It is not the complete legal health record.[facility]
--- OUTSIDE RECORDS SUMMARY | 2025-06-05 17:28 | XMS_ITS | Clinical Summary ---
Author Organization [facility] Address [address] [place] [phone] Phone Care Team Providers Care Thin Film Technician Name Role Phone Ariela Bowman NP Primary Care Provider [phone] Social History Tobacco Use Types Packs/Day Years [...] 1-dose 75+ series) 2013 Depression Screening 06/11/2024 COVID-19 Vaccine (3 - 2024-2 6 season) 2025 09/23/2024, 03/06/2024 Influenza Vaccine (#1) 2025 Falls Risk Assessment 02/17/2025 Medicare Annual Wellness Visit 02/17/2025 Osteoporosis Screening (Bone Density Screening) 02/17/2025 Social Influencers of Health Screening 02/17/2025 DTaP,Tdap,and Td Vaccines (2 - Td or Tdap) 05/24/2033 05/24/2023 HIB Vaccines Aged Out No longer eligi [...] on patient's age to complete this topic Insurance MEDICARE [facility] Care Teams Thin Film Technician Relationship Specialty Start Date End Date Ariela Bowman NP [address] [place] [phone] PCP - General Nurse Practitioner 02/17/25
[2025-06-05 17:45] LABS: Appearance Urine Clear; Glucose Urine UA Negative (Negative); PH 6.5 (5.0-9.0); Specific Gravity - Urine 1.010 (1.005-1.025); UMIC TRIGGER UA YES
== END 2025-06-05 17:25 | disposition home or self-care (01) ==
LOC: HO.LNP 17:24
PROVIDERS: Visit Provider Family Medicine
DX: R30.0 Dysuria (principal)
CPT/HCPCS: 81001; 87086